=== PATIENT | female | born 1970 | race Caucasian/White ===

== ENCOUNTER → 2018-01-23 16:08 | Outpatient (CLI) | payer OTHER, SELFPAY ==
[2018-01-23 16:50] LABS: Creatinine Urine Random 49.9 mg/dL
[2018-01-23 16:55] LABS: Microalbumin Urine Random 0.8 mg/dL (0-1.6)
== END ==
PROVIDERS: PCP Family Medicine; Visit Provider Family Medicine
DX: E11.65 Type 2 diabetes mellitus with hyperglycemia (principal)
CPT/HCPCS: 82043; 82570

== ENCOUNTER → 2018-07-09 14:00 | Outpatient (CLI) | payer OTHER, SELFPAY | PROVIDERS: Family Provider Family Medicine; PCP Family Medicine | DX: Z23 Encounter for immunization (principal) | CPT/HCPCS: 90471; 90686 ==

== ENCOUNTER → 2018-11-16 13:05 | Outpatient (CLI) | payer OTHER, SELFPAY ==
[2018-11-16 13:32] LABS: Influenza A and B by PCR Rapid Negative (Negative)
== END ==
PROVIDERS: Family Provider Family Medicine; PCP Family Medicine; Visit Provider Registered Nurse
DX: R50.9 Fever, unspecified (principal)
CPT/HCPCS: 87400

== ENCOUNTER → 2019-02-01 07:04 | Outpatient (CLI) | payer OTHER, SELFPAY ==
[2019-02-01 08:02] LABS: Add Manual Diff / Slide Review NO; Basophils Absolute Auto 100 /uL (0-100); Basophils Percent Auto 0.9 % (0-2); Eosinophils Absolute Auto 600 /uL (0-450); Eosinophils Percent Auto 6.7 % (2-4); Hematocrit 43.8 % (36-46); Lymphocytes Absolute Auto 1800 /uL (1100-4500); Lymphocytes Percent Auto 20.7 % (25-40); Mean Corpuscular HGB Conc 34.3 % (30-36); Mean Corpuscular Hemoglobin 28.8 PG (26-34); Mean Corpuscular Volume 83.9 fL (80-100); Monocytes Absolute Auto 400 /uL (0-900); Neutrophils Absolute Auto 5800 /uL (1500-7000); Neutrophils Percent Auto 66.7 % (50-75); Platelet Count 271 X10^3/uL (150-400); Red Blood Cell Count 5.22 X10^6/uL (4.0-5.2); Red Cell Distribution Width 13.2 % (11.6-14.8); White Blood Cell Count 8.7 X10^3/uL (4.5-11.0)
[2019-02-01 08:13] LABS: Hemoglobin A1C% w Est Avg Glu 12.2 % (4.0-6.0)
[2019-02-01 08:37] LABS: Alanine Aminotransferase 107 IU/L (9-52); Albumin 4.1 g/dL (3.5-5.0); Albumin Globulin Ratio 1.1 (1.0-2.8); Alkaline Phosphatase 117 U/L (38-126); Aspartate Aminotransferase 82 IU/L (14-36); Bilirubin Total 0.7 mg/dL (0.2-1.3); Blood Urea Nitrogen 12 mg/dL (7-17); Calcium 9.3 mg/dL (8.4-10.2); Carbon Dioxide 27 mmol/L (22-32); Chloride 97 mmol/L (98-107); Cholesterol 222 mg/dL (140-199); Estimated Glomerular Filt Rate > 60.0 mL/min (>60); Globulin 3.9 g/dL (1.7-4.1); Glucose 361 mg/dL (70-100); HDL Cholesterol 44 mg/dL (40-60); HEMOLYSIS 27 (0-50); LDL Cholesterol Calculated 110 mg/dL (<100); Potassium 3.9 mmol/L (3.4-5.1); Sodium 134 mmol/L (137-145); Triglycerides 342 mg/dL (35-150)
[2019-02-01 08:59] LABS: TSH w/ Reflex to FT4 0.99 uIU/mL (0.47-4.68)
== END ==
PROVIDERS: PCP Nurse Practitioner; Visit Provider Nurse Practitioner
DX: E11.65 Type 2 diabetes mellitus with hyperglycemia (principal); E66.9 Obesity, unspecified; I10 Essential (primary) hypertension; Z00.00 Encounter for general adult medical examination without abnormal findings
CPT/HCPCS: 36415; 80053; 80061; 83036; 84443; 85025

== ENCOUNTER → 2019-06-26 17:24 | Outpatient (CLI) | payer OTHER, SELFPAY | PROVIDERS: PCP Nurse Practitioner | DX: Z23 Encounter for immunization (principal) | CPT/HCPCS: 90471; 90686 ==

== ENCOUNTER → 2019-07-18 09:04 | Outpatient (CLI) | payer OTHER, SELFPAY ==
--- NOTE | 2019-07-18 09:06 | DI.RAD.S_ITS ---
PROCEDURE: XR CHEST 2V INDICATIONS: Chest Pain TECHNIQUE: 2 views of the chest were acquired. COMPARISON: [facility], CHEST 2 VIEW, 09/28/2017, 9:09. [facility], CHEST 2 VIEW, 11/22/2009, 7:12. FINDINGS: Surgical changes and devices: None. Lungs and pleura: Minimal streaky opacity at the left lung base which has the appearance of atelectasis. Lungs are otherwise clear. No pleural effusions or pneumothorax. Mediastinum: Mediastinal contours are normal. Heart size is normal. Bones and chest wall: No suspicious bony abnormalities. Soft tissues appear unremarkable. IMPRESSION: No acute cardiopulmonary abnormality. Dictated by: Zen Vance M.D. on 07/18/2019 at 9:21 Approved by: Zen Vance M.D. on 07/18/2019 at 9:25
[2019-07-18 11:15] LABS: Hematocrit 44.5 % (36-46); Hemoglobin 15.3 g/dL (12.0-16.0)
[2019-07-18 12:03] LABS: Alanine Aminotransferase 93 IU/L (<35); Albumin 4.5 g/dL (3.5-5.0); Albumin Globulin Ratio 1.2 (1.0-2.8); Alkaline Phosphatase 136 U/L (38-126); Aspartate Aminotransferase 82 IU/L (14-36); Bilirubin Total 0.8 mg/dL (0.2-1.3); Blood Urea Nitrogen 10 mg/dL (7-17); Calcium 9.5 mg/dL (8.4-10.2); Carbon Dioxide 28 mmol/L (22-32); Chloride 94 mmol/L (98-107); Creatine Kinase 45 U/L (30-135); Estimated Glomerular Filt Rate > 60.0 mL/min (>60); Globulin 3.9 g/dL (1.7-4.1); Glucose 442 mg/dL (70-100); HEMOLYSIS 19 (0-50); Potassium 3.9 mmol/L (3.4-5.1); Sodium 134 mmol/L (137-145); Total Protein 8.4 g/dL (6.3-8.2)
[2019-07-18 12:13] LABS: Troponin I < 0.012 ng/mL (0.01-0.034)
[2019-07-18 12:23] LABS: Free T3, Triiodothyronine Free 3.63 pg/mL (2.77-5.27); Free T4, Direct Thyroxine 1.44 ng/dL (0.78-2.19)
[2019-07-18 12:37] LABS: Thyroid Stimulating Hormone 1.38 uIU/mL (0.47-4.68)
== END ==
PROVIDERS: PCP Nurse Practitioner; Visit Provider Nurse Practitioner
DX: R07.9 Chest pain, unspecified (principal); R06.00 Dyspnea, unspecified
CPT/HCPCS: 36415; 71046; 80053; 82550; 84439; 84443; 84481; 84484; 85014; 85018

== ENCOUNTER → 2020-04-10 07:07 | Outpatient (CLI) | payer OTHER, SELFPAY ==
[2020-04-10 07:16] LABS: RBC Urine None Seen (0-5/HPF)
[2020-04-10 08:12] LABS: Appearance Urine UA CLEAR; Bilirubin Urine UA NEGATIVE (NEGATIVE); Color Urine UA YELLOW; Glucose Urine UA 3+ g/dL (Negative); Ketones Urine UA 1+ (NEGATIVE); Leukocyte Esterase Urine UA NEGATIVE (NEGATIVE); Nitrite Urine UA NEGATIVE (Negative); Occult Blood Urine UA NEGATIVE (Negative); Protein Urine UA NEGATIVE (Negative); Urobilinogen Urine UA 0.2 E.U./dL (0.2)
[2020-04-10 08:26] LABS: Hemoglobin A1C% w Est Avg Glu 13.4 % (4.0-6.0)
[2020-04-10 08:27] LABS: Add Manual Diff / Slide Review NO; Basophils Absolute Auto 100 /uL (0-100); Basophils Percent Auto 1.1 % (0-2); Eosinophils Absolute Auto 400 /uL (0-450); Eosinophils Percent Auto 5.4 % (2-4); Hematocrit 42.3 % (36-46); Hemoglobin 14.2 g/dL (12.0-16.0); Lymphocytes Absolute Auto 1800 /uL (1100-4500); Mean Corpuscular HGB Conc 33.7 % (30-36); Mean Corpuscular Hemoglobin 28.5 PG (26-34); Mean Corpuscular Volume 84.4 fL (80-100); Monocytes Absolute Auto 300 /uL (0-900); Monocytes Percent Auto 4.7 % (3-14); Neutrophils Absolute Auto 4700 /uL (1500-7000); Neutrophils Percent Auto 63.8 % (50-75); Platelet Count 239 X10^3/uL (150-400); Red Blood Cell Count 5.01 X10^6/uL (4.0-5.2); White Blood Cell Count 7.4 X10^3/uL (4.5-11.0)
[2020-04-10 08:31] LABS: Bacteria Urine Occasional (0-1); Culture Indicated Urine Cult Not Indicated; Squamous Epithelial Cell Urine 1-5 /HPF (0-5/HPF); WBC Urine 0-1/HPF (0-5/HPF)
[2020-04-10 08:35] LABS: Alanine Aminotransferase 77 IU/L (<35); Albumin 3.9 g/dL (3.5-5.0); Albumin Globulin Ratio 1.1 (1.0-2.8); Alkaline Phosphatase 116 U/L (38-126); Aspartate Aminotransferase 58 IU/L (14-36); BUN Creatinine Ratio 39.5 (6-22); Bilirubin Total 0.5 mg/dL (0.2-1.3); Blood Urea Nitrogen 17 mg/dL (7-17); Calcium 9.5 mg/dL (8.4-10.2); Carbon Dioxide 24 mmol/L (22-32); Chloride 99 mmol/L (98-107); Cholesterol 203 mg/dL (140-199); Creatinine Urine Random 73.3 mg/dL; Estimated Glomerular Filt Rate > 60.0 mL/min (>60); Globulin 3.4 g/dL (1.7-4.1); Glucose 407 mg/dL (70-100); HDL Cholesterol 45 mg/dL (40-60); HEMOLYSIS < 15 (0-50); LDL Cholesterol Calculated 82 mg/dL (<100); Potassium 4.5 mmol/L (3.4-5.1); Sodium 133 mmol/L (137-145); Total Protein 7.3 g/dL (6.3-8.2); Triglycerides 380 mg/dL (35-150)
[2020-04-10 08:38] LABS: Microalbumi Creatinin Ratio Ur 20.4 ug/mg CR (<30); Microalbumin Urine Random 1.5 mg/dL (0-1.6)
[2020-04-10 08:48] LABS: Free T3, Triiodothyronine Free 3.38 pg/mL (2.77-5.27); Free T4, Direct Thyroxine 1.63 ng/dL (0.78-2.19)
[2020-04-10 09:01] LABS: Thyroid Stimulating Hormone 0.901 uIU/mL (0.47-4.68)
== END ==
PROVIDERS: PCP Nurse Practitioner; Referring Provider Nurse Practitioner; Visit Provider Nurse Practitioner
DX: Z00.00 Encounter for general adult medical examination without abnormal findings (principal); E11.65 Type 2 diabetes mellitus with hyperglycemia; E66.9 Obesity, unspecified; E78.5 Hyperlipidemia, unspecified; F32.0 Major depressive disorder, single episode, mild; F41.9 Anxiety disorder, unspecified; I10 Essential (primary) hypertension; Z79.899 Other long term (current) drug therapy
CPT/HCPCS: 36415; 80053; 80061; 81001; 82043; 82570; 83036; 84439; 84443; 84481; 85025

== ENCOUNTER → 2020-06-09 00:52 | Outpatient (CLI) | payer OTHER, SELFPAY | PROVIDERS: PCP Nurse Practitioner; Referring Provider Internal Medicine; Visit Provider Internal Medicine | DX: Z23 Encounter for immunization (principal) | CPT/HCPCS: 90471; 90686 ==

== ENCOUNTER → 2020-07-29 13:01 | Outpatient (CLI) | payer OTHER, SELFPAY ==
[2020-07-29 13:46] LABS: COVID19 -Nasal RAPID Negative (Negative)
== END ==
PROVIDERS: PCP Nurse Practitioner; Visit Provider Nurse Practitioner
DX: R06.02 Shortness of breath (principal); R50.9 Fever, unspecified
CPT/HCPCS: 87635

== ENCOUNTER → 2020-09-11 08:07 | Outpatient (CLI) | payer OTHER, SELFPAY ==
[2020-09-11] MEDS: COVID-19 VACC(MODERNA-1)/PF 100 MCG/0.5 ML VIAL IM (08:18)
[2020-09-11] MEDS: diphenhydrAMINE 25 MG TABLET 50 MG PO (08:25)
== END ==
PROVIDERS: PCP Nurse Practitioner; Visit Provider Internal Medicine
DX: Z23 Encounter for immunization (principal)
CPT/HCPCS: 0011A; 91301; 93005

== ENCOUNTER 2020-09-11 08:34 | Emergency (ER) | payer OTHER, SELFPAY ==
[2020-09-11] VITALS (13 sets, daily range): BP systolic 124–217; BP diastolic 61–105; PULSE 77–94; RESP 13–27; TEMP 37.1; O2SAT 96–99; BMI 30.9
[2020-09-11] MEDS: FAMOTIDINE 20 MG/50 ML PIGGYBACK 200 MG IV (08:45)
[2020-09-11] MEDS: methylPREDNISolone 125 MG/2 ML VIAL IV (08:46)
[2020-09-11] MEDS: EPINEPHrine 1 MG/ML 0.3 MG IM (09:14)
--- NOTE | 2020-09-11 12:40 | ED.ALLEREA ---
HPI - Allergic Reaction General Chief complaint: Allergic Reaction Stated complaint: reaction/tighness in chest to vaccine Time Seen by Provider: 09/11/20 08:39 Source: patient Mode of arrival: Wheelchair Limitations: no limitations History of Present Illness HPI narrative: 50-year-old woman with a history of allergic reaction to bee stings diabetes hypertension hyperlipidemia who had her 1st Covid19 vaccination,Moderma, today. Immediately after the injection she began developing hives and itching. She was given 50 mg of oral Benadryl. Hives continued to progress, she began to feel some tightness in the back of her throat and tightness around her chest. She presents to the emergency room and is able to speak in full sentences. Related Data Home Medications Medication Instructions Recorded Confirmed citalopram 20 mg tablet 40 mg PO DAILY tab 12/27/19 05/13/20 cetirizine 10 mg capsule 10 mg PO DAILY 04/09/20 05/13/20 aspirin 81 mg tablet,delayed 81 mg PO DAILY 05/13/20 05/13/20 release Previous Rx's Medication Instructions Recorded lorazepam 1 mg tablet 1 mg PO Q6HP PRN #20 tab 06/04/18 epinephrine 0.3 mg/0.3 mL 0.3 mg IM SEE INSTRUCTIONS #1 pkg 12/25/18 injection, auto-injector promethazine 25 mg tablet 12.5 mg PO Q6H PRN #30 tab 02/21/19 triamcinolone acetonide 0.5 % 1 applictn TOPICAL BID #30 gram 04/23/19 topical ointment Ventolin HFA 90 mcg/actuation 2 puff INHALATION Q6H PRN #18 gram 09/19/19 aerosol inhaler NS omeprazole 40 mg capsule,delayed 40 mg PO BID #180 cap 09/19/19 release simvastatin 5 mg tablet 5 mg PO BEDTIME #90 tab 09/19/19 trazodone 50 mg tablet 50 mg PO BEDTIME PRN #180 tab 09/19/19 hydroxyzine pamoate 25 mg capsule 25 mg PO TID #60 cap 12/27/19 propranolol 20 mg tablet 20 mg PO BID #180 tab 04/09/20 flash glucose sensor #2 each 04/15/20 glipizide 5 mg tablet, extended 5 mg PO DAILY #30 tab 05/13/20 release 24 hr lisinopril 5 mg tablet 5 mg PO DAILY #30 tab 05/13/20 metformin 1,000 mg tablet 1,000 mg PO BID #180 tab 05/13/20 Pen needles for insulin syringe #100 each NS 05/22/20 insulin lispro 100 unit/mL See Rx Instructions SUBCUT TID #15 05/22/20 subcutaneous pen ml Blood glucose meter #1 ea 05/28/20 Test strips #400 each 05/28/20 lancets #400 each 05/28/20 hydrochlorothiazide 25 mg tablet 25 mg PO QDAY #90 tab 06/01/20 finasteride 5 mg tablet 5 mg PO DAILY #90 tab 06/25/20 gabapentin 600 mg tablet 600 mg PO BEDTIME #90 tab 08/31/20 prednisone 20 mg PO DAILY #5 tab 09/11/20 Allergies Allergy/AdvReac Type Severity Reaction Status Date / Time butalbital [BUTALBITAL] Allergy Mild FACIAL Verified 05/13/20 08:10 SWELLING oxycodone [OXYCODONE] Allergy Mild nausea, Verified 05/13/20 08:10 vomiting and chest tightness primidone [PRIMIDONE] Allergy Mild DIZZYNESS,A Verified 05/13/20 08:10 GITATION,CO NFUSION Sulfa (Sulfonamide Allergy Mild RASH Verified 05/13/20 08:10 Antibiotics) [SULFA (SULFONAMIDE ANTIBIOTICS)] Barbiturates [BARBITURATES] AdvReac Mild DIZZYNESS, Verified 05/13/20 08:10 AGITTION, CONFUSION Review of Systems Review of Systems Narrative: Pertinent positive and negative findings as per HPI Remainder of review of systems is otherwise unremarkable for Constitutional: Fevers, chills, weakness ENT: No sore throat, neck pain, ear pain CV: Chest pain, palpitations, Respiratory: Cough, wheeze, dyspnea GI: Nausea, vomiting, diarrhea, : Dysuria, hematuria, flank pain MS: Muscle weakness, numbness, joint swelling or warmth Patient History Medical History (Updated 09/11/20 @ 12:52 by Chika Euceda MD) Anxiety Asthma Atypical chest pain Chicken pox Chronic back pain Class 1 obesity (12/25/17) Depression Essential hypertension (12/20/17) GERD (gastroesophageal reflux disease) Headache History of tremor Hyperlipidemia Hypertension Hypoglycemic reaction to insulin in type 2 diabetes mellitus Infertility Irregular menstrual cycle Menorrhagia Migraine Palpitations PCOS (polycystic ovarian syndrome) Peripheral neuropathy due to metabolic disorder Piriformis syndrome of left side Seasonal allergies Shoulder pain Sleep apnea Tremor (12/20/17) Uncontrolled type 2 diabetes mellitus (2008) Vertigo Surgical History Anesthesia H/O elbow surgery (2010) H/O unilateral salpingectomy (2001) Status post surgery (05/18/12) Family History Brother Age: 50 Hyperlipidemia Diabetes mellitus Hypertension Father CAD (coronary artery disease) Dementia Anxiety and depression Hx of CABG History of heart disease Hypertension Hyperlipidemia Mental health problem Mother DM type 2 (diabetes mellitus, type 2) Hyperlipidemia Anxiety Hypertension Cancer Sister Age: 52 Mental health problem Social History marital status: household members: family lives independently: Yes housing: house pets and animals: Yes education level: college occupational status: employed Smoking Status: Never smoker alcohol intake: current substance use type: does not use Smoking Status: Never smoker alcohol intake frequency: 0-2 drinks per day Substance Use Type: does not use Exam Narrative Exam Narrative: General: Healthy appearing, in mild distress. Able to give a complete and coherent history. Well-nourished well-developed HEENT: Moist mucous membranes, normal sclera with reactive pupils, he erythema and hives over the neck extending up to the chin down to the chest and upper arms. No obvious pharyngeal edema or tongue edema, mild lip edema Neck: supple Respiratory: Lungs are clear to auscultation, no wheezing no rales no rhonchi. Full and symmetrical air movement Cardiac: Regular rate and rhythm no murmurs no bruits Abdomen: Soft nontender good bowel tones, no flank pain Skin: Warm and dry, no rashes Neurologic: Grossly neurologically intact with no obvious asymmetries or abnormalities Extremities: No trauma, well perfused Psych: Cooperative, appropriate insight and affect Initial Vital Signs Initial Vital Signs: Vital Signs Pulse Rate 94 H 09/11/20 08:43 Course Orders Ordered: Discontinued Medications Epinephrine HCl (Epinephrine 1 Mg/Ml) 0.3 mg IM NOW ONE Stop: 09/11/20 09:16 Last Admin: 09/11/20 09:14 Dose: 0.3 mg Documented by: MARY Famotidine (Pepcid) 20 mg in 50 mls @ 200 mls/hr IV NOW ONE Stop: 09/11/20 08:53 Last Infusion: 09/11/20 09:15 Dose: 0 mls/hr Documented by: Admin: 09/11/20 08:45 Dose: 200 mls/hr Documented by: MANJU Methylprednisolone (Methylprednisolone 125 Mg/2 Ml Vial) 125 mg IV NOW ONE Stop: 09/11/20 08:40 Last Admin: 09/11/20 08:46 Dose: 125 mg Documented by: MANJU Vital Signs Vital signs: Vital Signs - 8 hr 09/11/20 08:43 09/11/20 08:44 09/11/20 08:45 Temperature 98.8 F Pulse Rate 94 H 89 88 Respiratory Rate 16 18 Blood Pressure 168/86 H 168/86 H Pulse Oximetry 98 98 09/11/20 09:00 09/11/20 09:30 09/11/20 10:00 Temperature Pulse Rate 86 82 77 Respiratory Rate 27 H 18 22 Blood Pressure 151/73 H 140/85 217/105 H Pulse Oximetry 97 97 99 09/11/20 10:21 09/11/20 10:30 09/11/20 10:45 Temperature Pulse Rate 81 83 86 Respiratory Rate 13 14 17 Blood Pressure 135/75 135/75 Pulse Oximetry 99 98 98 09/11/20 11:00 09/11/20 11:30 09/11/20 12:00 Temperature Pulse Rate 86 82 86 Respiratory Rate 19 23 26 H Blood Pressure 129/73 125/61 Pulse Oximetry 97 96 96 MDM - Allergic Reaction Differential Diagnosis Differential diagnosis: Likely anaphylaxis MDM Narrative Medical decision making narrative: 50-year-old woman with a history of allergy to bee stings with acute anaphylactic reaction to 1st COVID-19 vaccine. She was given initially Solu-Medrol, IV Pepcid and IV Benadryl with progression of symptoms over the 1st 20 minutes following those medications. Subcu epinephrine was given and the symptoms began to improve significantly. She was continued to be observed in the emergency department for 4 additional hours and has continued to improve and currently has no concerning symptoms. She will be safe for home discharge. Will recommend no further COVID vaccinations Discharge Plan Departure Patient Disposition: Home Clinical Impression: Anaphylaxis Qualifiers: Encounter type: initial encounter Qualified Code(s): T78.2XXA - Anaphylactic shock, unspecified, initial encounter Instructions: DI for Anaphylaxis Activity Restrictions/Additional Instructions: Thank you for coming in today You initially received Benadryl, Solu-Medrol, Pepcid and as symptoms continued to progress your given subcu epinephrine. Has you are still slightly flushed and somewhat itchy, I am going to suggest 5 additional days of prednisone 20 mg a day just to avoid any recurrent issues for you. You certainly can use Benadryl to help with sleep with the steroids are interfering with your sleep. 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 Please begin the 1st dose tomorrow. Please have a very low threshold for returning to the Emergency Room if you have any increased airway, throat, tongue or lip symptoms. Prescriptions: New prednisone 20 mg tablet 20 mg PO DAILY Qty: 5 RF: 0 No Action lorazepam 1 mg tablet 1 mg PO Q6HP PRN (Reason: anxiety) Qty: 20 RF: 1 epinephrine [EpiPen 2-Justin] 0.3 mg/0.3 mL auto-injector 0.3 mg IM SEE INSTRUCTIONS Qty: 1 RF: 2 promethazine 25 mg tablet 12.5 mg PO Q6H PRN (Reason: nausea/vomiting) Qty: 30 RF: 2 triamcinolone acetonide 0.5 % ointment 1 applictn Topical BID Qty: 30 RF: 4 citalopram 20 mg tablet 40 mg PO DAILY RF: 0 hydroxyzine pamoate 25 mg capsule 25 mg PO TID Qty: 60 RF: 0 (DME) FreeStyle Raquel 14 Day Sensor Kit See Rx Instructions .ROUTE .MEDSUPPLY Qty: 2 RF: 11 (DME) Blood glucose meter Qty: 1 RF: 0 (DME) lancets Qty: 400 RF: 3 (DME) Test strips Qty: 400 RF: 3 hydrochlorothiazide 25 mg tablet 25 mg PO QDAY Qty: 90 RF: 3 finasteride 5 mg tablet 5 mg PO DAILY Qty: 90 RF: 3 gabapentin 600 mg tablet 600 mg PO BEDTIME Qty: 90 RF: 2 omeprazole 40 mg capsule,delayed release(DR/EC) 40 mg PO BID Qty: 180 RF: 3 simvastatin 5 mg tablet 5 mg PO BEDTIME Qty: 90 RF: 3 trazodone 50 mg tablet 50 mg PO BEDTIME PRN (Reason: insomnia) Qty: 180 RF: 3 albuterol sulfate [Ventolin HFA] 90 mcg/actuation HFA aerosol inhaler 2 puff INHALATION Q6H PRN (Reason: shortness of breath or wheezing) Qty: 18 RF: 5 glipizide 5 mg tablet extended release 24hr 5 mg PO DAILY Qty: 30 RF: 0 Hold Instructions: hypoglycemic symptoms metformin 1,000 mg tablet 1,000 mg PO BID Qty: 180 RF: 3 aspirin [Adult Low Dose Aspirin] 81 mg tablet,delayed release (DR/EC) 81 mg PO DAILY RF: 0 lisinopril 5 mg tablet 5 mg PO DAILY Qty: 30 RF: 0 propranolol 20 mg tablet 20 mg PO BID Qty: 180 RF: 3 Zyrtec 10 mg capsule 10 mg PO DAILY RF: 0 insulin lispro 100 unit/mL insulin pen See Rx Instructions SUBCUT TID Qty: 15 RF: 1 (DME) Pen needles for insulin syringe Qty: 100 RF: 3 Referrals: Tamanna Gordon ARNP [Primary Care Provider] -
== END 2020-09-11 12:58 | disposition home or self-care (01) ==
PROVIDERS: Emergency Provider Emergency Medicine; PCP Nurse Practitioner
DX: T78.2XXA Anaphylactic shock, unspecified, initial encounter (principal); T50.Z95A Adverse effect of other vaccines and biological substances, initial encounter; L50.0 Allergic urticaria; L29.9 Pruritus, unspecified; R07.9 Chest pain, unspecified
CPT/HCPCS: 0011A; 93005; 96365; 96372; 96375; 99283; 99284; J0171; J2930

== ENCOUNTER → 2020-12-31 07:18 | Outpatient (CLI) | payer OTHER, SELFPAY ==
[2020-12-31 08:01] LABS: Hemoglobin A1C% w Est Avg Glu 13.3 % (4.0-6.0)
[2020-12-31 08:04] LABS: Add Manual Diff / Slide Review NO; Basophils Absolute Auto 100 /uL (0-100); Eosinophils Absolute Auto 300 /uL (0-450); Eosinophils Percent Auto 4.8 % (2-4); Hematocrit 42.2 % (36-46); Hemoglobin 14.2 g/dL (12.0-16.0); Lymphocytes Absolute Auto 1700 /uL (1100-4500); Lymphocytes Percent Auto 23.4 % (25-40); Mean Corpuscular HGB Conc 33.8 % (30-36); Mean Corpuscular Hemoglobin 28.3 PG (26-34); Mean Corpuscular Volume 83.9 fL (80-100); Monocytes Absolute Auto 400 /uL (0-900); Monocytes Percent Auto 6.2 % (3-14); Neutrophils Absolute Auto 4600 /uL (1500-7000); Neutrophils Percent Auto 64.6 % (50-75); Platelet Count 266 X10^3/uL (150-400); Red Blood Cell Count 5.03 X10^6/uL (4.0-5.2); White Blood Cell Count 7.1 X10^3/uL (4.5-11.0)
[2020-12-31 08:14] LABS: Alanine Aminotransferase 55 IU/L (<35); Albumin Globulin Ratio 1.1 (1.0-2.8); Alkaline Phosphatase 124 U/L (38-126); Aspartate Aminotransferase 49 IU/L (14-36); BUN Creatinine Ratio 27.1 (6-22); Bilirubin Total 0.3 mg/dL (0.2-1.3); Blood Urea Nitrogen 13 mg/dL (7-17); Calcium 9.6 mg/dL (8.4-10.2); Carbon Dioxide 27 mmol/L (22-32); Chloride 93 mmol/L (98-107); Cholesterol 232 mg/dL (140-199); Estimated Glomerular Filt Rate > 60.0 mL/min (>60); Globulin 3.6 g/dL (1.7-4.1); HDL Cholesterol 51 mg/dL (40-60); HEMOLYSIS < 15 (0-50); Potassium 3.8 mmol/L (3.4-5.1); Sodium 131 mmol/L (137-145); Total Protein 7.6 g/dL (6.3-8.2); Triglycerides 472 mg/dL (35-150)
[2020-12-31 08:20] LABS: Glucose 518 mg/dL (70-100)
[2020-12-31 08:27] LABS: Free T3, Triiodothyronine Free 3.61 pg/mL (2.77-5.27); Free T4, Direct Thyroxine 1.18 ng/dL (0.78-2.19)
== END ==
PROVIDERS: PCP Nurse Practitioner; Referring Provider Nurse Practitioner; Visit Provider Nurse Practitioner
DX: Z00.00 Encounter for general adult medical examination without abnormal findings (principal); E11.649 Type 2 diabetes mellitus with hypoglycemia without coma; E11.65 Type 2 diabetes mellitus with hyperglycemia; E78.5 Hyperlipidemia, unspecified; F32.0 Major depressive disorder, single episode, mild; I10 Essential (primary) hypertension; Z79.899 Other long term (current) drug therapy
CPT/HCPCS: 36415; 80053; 80061; 83036; 84439; 84443; 84481; 85025

== ENCOUNTER → 2021-01-27 07:44 | Outpatient (CLI) | payer OTHER, SELFPAY ==
[2021-01-27] MEDS: COVID-19 VACC, Ad26(JANSSEN)/PF 0.5 ML IM (07:49)
== END ==
PROVIDERS: PCP Nurse Practitioner; Visit Provider Internal Medicine
DX: Z23 Encounter for immunization (principal)
CPT/HCPCS: 0031A; 91303

== ENCOUNTER 2021-02-21 13:48 | Observation (INO) | payer OTHER, SELFPAY ==
[2021-02-21] VITALS (9 sets, daily range): BP systolic 131–170; BP diastolic 76–95; PULSE 71–83; RESP 13–24; TEMP 36.1–36.7; O2SAT 97–100; BMI 30.4; BMI 31.1
--- NOTE | 2021-02-21 13:54 | DI.RAD.S_ITS ---
PROCEDURE: XR CHEST 1V INDICATIONS: chest pain TECHNIQUE: One view of the chest was acquired. COMPARISON: [facility], [place], XR CHEST 2V, 07/18/2019, 9:02. FINDINGS: Surgical changes and devices: None. Lungs and pleura: Lungs are clear. No pleural effusions or pneumothorax. Mediastinum: Mediastinal contours appear normal. Heart size is normal. Bones and chest wall: No suspicious bony lesions. Overlying soft tissues appear unremarkable. IMPRESSION: No evidence acute pulmonary process. Dictated by: Pee Penny M.D. on 02/21/2021 at 13:20 Approved by: Pee Penny M.D. on 02/21/2021 at 13:21
[2021-02-21 14:29] LABS: Add Manual Diff / Slide Review NO; Basophils Absolute Auto 100 /uL (0-100); Basophils Percent Auto 1.2 % (0-2); Eosinophils Absolute Auto 0 /uL (0-450); Eosinophils Percent Auto 0.3 % (2-4); Hematocrit 40.4 % (36-46); Lymphocytes Absolute Auto 2000 /uL (1100-4500); Lymphocytes Percent Auto 22.6 % (25-40); Mean Corpuscular HGB Conc 34.6 % (30-36); Mean Corpuscular Hemoglobin 28.1 PG (26-34); Mean Corpuscular Volume 81.3 fL (80-100); Monocytes Absolute Auto 300 /uL (0-900); Neutrophils Absolute Auto 6200 /uL (1500-7000); Neutrophils Percent Auto 71.9 % (50-75); Platelet Count 276 X10^3/uL (150-400); Red Blood Cell Count 4.97 X10^6/uL (4.0-5.2); Red Cell Distribution Width 13.2 % (11.6-14.8); White Blood Cell Count 8.7 X10^3/uL (4.5-11.0)
[2021-02-21 14:37] LABS: Alanine Aminotransferase 48 IU/L (<35); Albumin 4.3 g/dL (3.5-5.0); Alkaline Phosphatase 125 U/L (38-126); Aspartate Aminotransferase 56 IU/L (14-36); BUN Creatinine Ratio 30.8 (6-22); Bilirubin Total 0.8 mg/dL (0.2-1.3); Blood Urea Nitrogen 12 mg/dL (7-17); Calcium 9.8 mg/dL (8.4-10.2); Carbon Dioxide 24 mmol/L (22-32); Chloride 98 mmol/L (98-107); Creatine Kinase 113 U/L (30-135); Estimated Glomerular Filt Rate > 60.0 mL/min (>60); Globulin 4.4 g/dL (1.7-4.1); Glucose 346 mg/dL (70-100); HEMOLYSIS 23 (0-50); Lipase 67 U/L (23-300); Potassium 3.8 mmol/L (3.4-5.1); Sodium 133 mmol/L (137-145); Total Protein 8.7 g/dL (6.3-8.2)
[2021-02-21 14:49] LABS: Troponin I < 0.012 ng/mL (0.01-0.034)
[2021-02-21 14:52] LABS: CKMB % Relative Index 0.6 % (1.5-5.0); Creatine Kinase MB 0.67 ng/mL (<2.37)
[2021-02-21] MEDS: SODIUM CHLORIDE 0.9% 1,000 ML 1000 ML IV (16:55)
[2021-02-21 17:42] LABS: Troponin I < 0.012 ng/mL (0.01-0.034)
--- NOTE | 2021-02-21 18:02 | ED.CHESTPAIN ---
HPI - Chest Pain General Chief Complaint: Chest Pain Stated Complaint: CHEST PAIN/VOMITTING/ANXIETY ATTACK Time Seen by Provider: 02/21/21 16:17 Source: patient Mode of arrival: Family Vehicle Limitations: no limitations History of Present Illness HPI narrative: Patient is a 50-year-old female history of hypertension hyperlipidemia diabetes, a family history of father with bypass at age 39 presenting today with chest discomfort. She said actually started last night she did have some anxiety component associated with her chest discomfort. She said it is hard to discern what came 1st. However she has chest discomfort off and on throughout the day it happens both at rest and with exertion feels pressure across her chest nonradiating. No shortness of breath with exertion last for approximately 10-15 minutes and spontaneously resolved. His after being in the emergency department for 4 hours she overall is feeling better. She also states that last night she was vomiting thought to be due to the anxiety. She has no abdominal pain she is no longer nauseous or vomiting. MD complaint: chest pain Onset (ago): hour(s) Duration: intermittent Related Data Home Medications Medication Instructions Recorded Confirmed cetirizine 10 mg capsule 10 mg PO DAILY 04/09/20 02/21/21 aspirin 81 mg tablet,delayed 81 mg PO DAILY 05/13/20 02/21/21 release omega-3 fatty acids 1,000 mg 1,000 mg PO BID 01/01/21 02/21/21 capsule Previous Rx's Medication Instructions Recorded promethazine 25 mg tablet 12.5 mg PO Q6H PRN #30 tab 02/21/19 triamcinolone acetonide 0.5 % 1 applictn TOPICAL BID #30 gram 04/23/19 topical ointment hydroxyzine pamoate 25 mg capsule 25 mg PO TID #60 cap 12/27/19 propranolol 20 mg tablet 20 mg PO BID #180 tab 04/09/20 flash glucose sensor #2 each 04/15/20 Pen needles for insulin syringe #100 each NS 05/22/20 insulin lispro 100 unit/mL See Rx Instructions SUBCUT TID #15 05/22/20 subcutaneous pen ml Blood glucose meter #1 ea 05/28/20 Test strips #400 each 05/28/20 lancets #400 each 05/28/20 finasteride 5 mg tablet 5 mg PO DAILY #90 tab 06/25/20 gabapentin 600 mg tablet 600 mg PO BEDTIME #90 tab 08/31/20 Ventolin HFA 90 mcg/actuation 2 puff INHALATION Q6H PRN #18 gram 09/15/20 aerosol inhaler NS epinephrine 0.3 mg/0.3 mL 0.3 mg IM SEE INSTRUCTIONS #1 pkg 09/16/20 injection, auto-injector melatonin 10 mg capsule 10 mg PO BEDTIME PRN #1 cap 11/16/20 doxepin 10 mg capsule 10 mg PO BEDTIME #180 cap 01/01/21 hydrochlorothiazide 25 mg tablet 25 mg PO QDAY #90 tab 01/01/21 lisinopril 5 mg tablet 5 mg PO DAILY #90 tab 01/01/21 simvastatin 5 mg tablet 5 mg PO BEDTIME #90 tab 01/01/21 venlafaxine 150 mg 150 mg PO BEDTIME #90 cap 01/01/21 capsule,extended release 24 hr omeprazole 40 mg capsule,delayed See Rx Instructions .ROUTE 01/28/21 release .COMPLEX #180 cap glipizide 5 mg tablet, extended 5 mg PO BID #180 tab 02/02/21 release 24 hr lorazepam 1 mg tablet 1 mg PO Q6HP PRN #20 tab 02/02/21 Allergies Allergy/AdvReac Type Severity Reaction Status Date / Time butalbital [BUTALBITAL] Allergy Mild FACIAL Verified 02/21/21 13:54 SWELLING oxycodone [OXYCODONE] Allergy Mild nausea, Verified 02/21/21 13:54 vomiting and chest tightness primidone [PRIMIDONE] Allergy Mild DIZZYNESS,A Verified 02/21/21 13:54 GITATION,CO NFUSION Sulfa (Sulfonamide Allergy Mild RASH Verified 02/21/21 13:54 Antibiotics) [SULFA (SULFONAMIDE ANTIBIOTICS)] Barbiturates [BARBITURATES] AdvReac Mild DIZZYNESS, Verified 02/21/21 13:54 AGITTION, CONFUSION Review of Systems Review of Systems ROS Unobtainable: All systems reviewed & are unremarkable except as noted in HPI and below Constitutional Constitutional: Denies chills, Denies fever(s), Denies lethargy and Denies weakness Eyes Eyes: Denies change in vision, Denies eye discharge, Denies irritation and Denies loss of vision Cardiovascular Cardiovascular: Reports as per HPI, Denies dyspnea and Denies dyspnea on exertion Respiratory Respiratory: Denies cough, Denies dyspnea, Denies dyspnea on exertion and Denies wheezing Gastrointestinal Gastrointestinal: Denies abdominal pain, Reports nausea and Reports vomiting Musculoskeletal Musculoskeletal: Denies back pain and Denies arthralgias Integumentary/Breasts Skin/Breast: Denies pruritus, Denies erythema, Denies rash and Denies wounds Neurologic Neurologic: Denies loss of vision and Denies weakness Allergic/Immunologic Allergic/Immunologic: Denies wheezing Patient History Medical History Anxiety Asthma Atypical chest pain Chicken pox Chronic back pain Class 1 obesity (12/25/17) Depression Essential hypertension (12/20/17) GERD (gastroesophageal reflux disease) Headache History of tremor Hyperlipidemia Hypertension Hypoglycemic reaction to insulin in type 2 diabetes mellitus Infertility Insomnia Irregular menstrual cycle Menorrhagia Migraine Palpitations PCOS (polycystic ovarian syndrome) Peripheral neuropathy due to metabolic disorder Piriformis syndrome of left side Seasonal allergies Shoulder pain Sleep apnea Tremor (12/20/17) Uncontrolled type 2 diabetes mellitus (2008) Vertigo Surgical History (Updated 02/21/21 @ 18:45 by Ammy Martínez MD) Anesthesia H/O elbow surgery (2010) H/O unilateral salpingectomy (2001) History of bladder surgery Status post surgery (05/18/12) Family History Brother Age: 51 Hyperlipidemia Diabetes mellitus Hypertension Father CAD (coronary artery disease) Dementia Anxiety and depression Hx of CABG History of heart disease Hypertension Hyperlipidemia Mental health problem Mother DM type 2 (diabetes mellitus, type 2) Hyperlipidemia Anxiety Hypertension Cancer Sister Age: 53 Mental health problem Social History marital status: household members: family lives independently: Yes housing: house pets and animals: Yes education level: college occupational status: employed Smoking Status: Never smoker alcohol intake: current substance use type: does not use Smoking Status: Never smoker alcohol intake frequency: holidays/special occasions only Substance Use Type: does not use Exam Initial Vital Signs Initial Vital Signs: Vital Signs Temperature 98.0 F 02/21/21 13:54 Pulse Rate 83 02/21/21 13:54 Respiratory Rate 22 02/21/21 13:54 Blood Pressure 170/95 H 02/21/21 13:54 Pulse Oximetry 100 02/21/21 13:54 GENERAL: Well-appearing, well-nourished and in no acute distress. HEENT: Head atraumatic,EOMI, pupils reactive, face symmetric, moist mucous membranes CARDIOVASCULAR: Regular rate and rhythm without murmurs, rubs or gallops. RESPIRATORY: Breath sounds equal bilaterally, no wheezes rales or rhonchi. ABDOMEN: Soft, nontender. Normoactive bowel sounds all 4 quadrants. No guarding or rebound. : No CVA tenderness EXTREMITIES: Normal range of motion, no clubbing or edema. Neurovascularly intact NEUROLOGICAL: Alert and oriented x4.Normal gait and speech. SKIN: Warm, dry, no laceration, no petechiae, no rashes or lesions. Scores HEART Score Heart Score history: Moderately Suspicious Heart Score EKG: Normal Heart Score Age: 45-64 years old Heart Score risk factors: > 3 risk factors or hx of atherosclerotic disease Heart Score troponin: < or = to normal limit Heart Score Total: 4 Course Orders Ordered: ED Orders 02/21/21 18:30 Education, smoking cessation ONGOING 02/21/21 22:50 Troponin I Stat 02/22/21 05:00 Basic Metabolic Panel Routine Complete Blood Count AUTO DIFF Routine Troponin I Routine Acetaminophen (Acetaminophen 325 Mg Tablet) 650 mg PO Q6HR PRN PRN Reason: Fever/Mild Pain (1-3) Albuterol (Albuterol Hfa Mdi 60 Puff/8 Gm Inhaler) 2 puff INH Q6H PRN PRN Reason: shortness of breath or wheezing Aspirin (Aspirin Ec 81 Mg Tablet) 81 mg PO DAILY [facility] Last Admin: 02/21/21 19:28 Dose: 81 mg Documented by: BRANDIE Dextrose (Dextrose 50 % In Water 25 Gm/50 Ml Syringe) 25 gm IV PRN PRN PRN Reason: Hypoglycemia Doxepin HCl (Doxepin 10 Mg Capsule) 10 mg PO BEDTIME [facility] Last Admin: 02/21/21 21:29 Dose: 10 mg Documented by: BRANDIE Gabapentin (Gabapentin 600 Mg Tablet) 600 mg PO BEDTIME [facility] Last Admin: 02/21/21 21:29 Dose: 600 mg Documented by: BRANDIE Glipizide (Glipizide Xl 5 Mg Tab) 5 mg PO BID [facility] Last Admin: 02/21/21 21:30 Dose: Not Given Documented by: BRANDIE Hydrochlorothiazide (Hydrochlorothiazide 25 Mg Tablet) 25 mg PO DAILY [facility] Hydroxyzine Pamoate (Hydroxyzine Pamoate 25 Mg Capsule) 25 mg PO TID [facility] Last Admin: 02/21/21 21:30 Dose: 25 mg Documented by: BRANDIE Ibuprofen (Ibuprofen 600 Mg Tablet) 600 mg PO Q6HR PRN PRN Reason: Fever/Mild Pain (1-3) Insulin Human Lispro (Insulin Lispro 100 Unit/Ml 3ml Vial) 0 unit SUBCUT ACHS [facility]; Protocol Last Admin: 02/21/21 21:30 Dose: 3 unit Documented by: BRANDIE Cosigned by: LUIZ Lisinopril (Lisinopril 5 Mg Tablet) 5 mg PO DAILY [facility] Lorazepam (Lorazepam 1 Mg Tablet) 1 mg PO Q6H PRN PRN Reason: anxiety Last Admin: 02/21/21 21:34 Dose: 1 mg Documented by: BRANDIE Naloxone HCl (Naloxone 0.4 Mg/Ml Vial) 0.2 mg IV Q2MIN PRN PRN Reason: Opiate Reversal Nitroglycerin (Nitroglycerin 0.4 Mg Sl Tab) 0.4 mg SL [id number] PRN PRN Reason: Chest Pain Non-Formulary Medication (Melatonin) 10 mg PO BEDTIME PRN PRN Reason: sleep Non-Formulary Medication (Omeprazole) 0 mg .ROUTE .COMPLEX [facility] Non-Formulary Medication (Simvastatin) 5 mg PO BEDTIME [facility] Last Admin: 02/21/21 21:32 Dose: Not Given Documented by: BRANDIE Ondansetron HCl (Ondansetron 4 Mg Odt) 4 mg PO Q8HR PRN PRN Reason: Nausea And Vomiting Propranolol HCl (Propranolol 10 Mg Tablet) 20 mg PO BID [facility] Last Admin: 02/21/21 21:31 Dose: 20 mg Documented by: BRANDIE Sodium Chloride (Sodium Chloride 0.9% Flush) 10 ml IV PRN PRN PRN Reason: Flush Sodium Chloride (Sodium Chloride 0.9% Flush) 10 ml IV BID [facility] Venlafaxine HCl (Venlafaxine Er 75 Mg Cap) 150 mg PO BEDTIME [facility] Last Admin: 02/21/21 21:32 Dose: 150 mg Documented by: BRANDIE Discontinued Medications Sodium Chloride (Normal Saline 0.9%) 1,000 mls @ 1,000 mls/hr IV BOLUS ONE Stop: 02/21/21 17:50 Last Admin: 02/21/21 16:55 Dose: 1,000 mls/hr Documented by: SANDOVAL Vital Signs Vital signs: Vital Signs - 8 hr 02/21/21 13:54 02/21/21 15:35 02/21/21 16:59 Temperature 98.0 F Pulse Rate 83 80 78 Respiratory Rate 22 15 18 Blood Pressure 170/95 H 136/82 Pulse Oximetry 100 99 98 02/21/21 17:00 Temperature Pulse Rate 77 Respiratory Rate 19 Blood Pressure Pulse Oximetry 98 MDM - Chest Pain Lab Data Attestation: I reviewed the patient's lab results. Result diagrams: 02/21/21 14:20 02/21/21 14:20 Labs: Lab Results 02/21/21 02/21/21 02/21/21 Range/Units 14:20 14:20 16:43 WBC 8.7 (4.5-11.0) X10^3/uL RBC 4.97 (4.0-5.2) X10^6/uL Hgb 14.0 (12.0-16.0) g/dL Hct 40.4 (36-46) % MCV 81.3 (80-100) fL MCH 28.1 (26-34) PG MCHC 34.6 (30-36) % RDW 13.2 (11.6-14.8) % Plt Count 276 (150-400) X10^3/uL Neut % (Auto) 71.9 (50-75) % Lymph % (Auto) 22.6 L (25-40) % [place] % (Auto) 4.0 (3-14) % Eos % (Auto) 0.3 L (2-4) % Baso % (Auto) 1.2 (0-2) % Neut # (Auto) 6200 (6831-6984) /uL Lymph # (Auto) 2000 (9072-5471) /uL [place] # (Auto) 300 (0-900) /uL Eos # (Auto) 0 (0-450) /uL Baso # (Auto) 100 (0-100) /uL Sodium 133 L (137-145) mmol/L Potassium 3.8 (3.4-5.1) mmol/L Chloride 98 (98-107) mmol/L Carbon Dioxide 24 (22-32) mmol/L BUN 12 (7-17) mg/dL Creatinine 0.39 L (0.52-1.04) mg/dL Estimated GFR > 60.0 (>60) mL/min BUN/Creatinine Ratio 30.8 H (6-22) Glucose 346 H (70-100) mg/dL Calcium 9.8 (8.4-10.2) mg/dL Total Bilirubin 0.8 (0.2-1.3) mg/dL AST 56 H (14-36) IU/L ALT 48 H (<35) IU/L Alkaline Phosphatase 125 (38-126) U/L Total Creatine Kinase 113 (30-135) U/L CK-MB (CK-2) 0.67 (<2.37) ng/mL CK-MB (CK-2) Rel Index 0.6 L (1.5-5.0) % Troponin I < 0.012 < 0.012 (0.01-0.034) ng/mL Total Protein 8.7 H (6.3-8.2) g/dL Albumin 4.3 (3.5-5.0) g/dL Globulin 4.4 H (1.7-4.1) g/dL Albumin/Globulin Ratio 1.0 (1.0-2.8) Lipase 67 (23-300) U/L Imaging Data Chest x-ray: Radiologist's Impression: PROCEDURE: XR CHEST 1V INDICATIONS: chest pain TECHNIQUE: One view of the chest was acquired. COMPARISON: [facility], , XR CHEST 2V, 07/18/2019, 9:02. FINDINGS: Surgical changes and devices: None. Lungs and pleura: Lungs are clear. No pleural effusions or pneumothorax. Mediastinum: Mediastinal contours appear normal. Heart size is normal. Bones and chest wall: No suspicious bony lesions. Overlying soft tissues appear unremarkable. IMPRESSION: No evidence acute pulmonary process. Dictated by: Pee Penny M.D. on 02/21/2021 at 13:20 ECG Data Attestation: I personally reviewed and interpreted this ECG as follows: Interpretation: EKG 1. Normal sinus rhythm rate 84 p.r. interval 174 QRS is [address] changes or T-wave inversions Q-waves noted in lead 3 only EKG 2. Sinus rhythm rate 80 no changes MDM Narrative Medical decision making narrative: Patient has significant risk factors, she has 2- troponins and no EKG changes. At this time I recommend observation and stress test. Discharge Plan Departure Patient Disposition: Admitted as Observation Clinical Impression: Chest pain Admit Date/Time: 02/21/21 18:40 Admit Provider: Ammy Martínez
--- NOTE | 2021-02-21 18:36 | P.HP_ITS ---
History of Present Illness History of Present Illness Date Patient Seen: 02/21/21 Time Patient Seen: 18:36 Chief complaint: CHEST PAIN/VOMITTING/ANXIETY ATTACK Narrative: This is a 50-year-old female with a strong family history of SC, hypertension, hyperlipidemia, type 2 diabetes mellitus, chronic anxiety and panic attacks who began experiencing left-sided chest pain while watching TV at 7:00 p.m. last night. Her father had an SC with a coronary artery bypass graft at age 39. She has risk factors of hypertension, hyperlipidemia and type 2 diabetes mellitus. She says that the symptoms came on concurrent with her usual panic attack symptoms but were much worse than usual. She experienced significant vomiting that persisted until this morning. There has been no abdominal pain. Her Lipase is 67. She had shortness of breath and palpitations. The pain has been coming on both at rest and with exertion. She was able to get some rest last night and when she got up this morning and tried to take a shower the pain came back. It radiates into both shoulders and both arms with tingling in both hands. She does not usually get this type of symptom with her panic attacks. She has not been tried on nitroglycerin or aspirin so far. Her symptoms had nearly subsided when she got to the emergency department and then resolved on their own. Patient History Medical History Anxiety Asthma Atypical chest pain Chicken pox Chronic back pain Class 1 obesity (12/25/17) Depression Essential hypertension (12/20/17) GERD (gastroesophageal reflux disease) Headache History of tremor Hyperlipidemia Hypertension Hypoglycemic reaction to insulin in type 2 diabetes mellitus Infertility Insomnia Irregular menstrual cycle Menorrhagia Migraine Palpitations PCOS (polycystic ovarian syndrome) Peripheral neuropathy due to metabolic disorder Piriformis syndrome of left side Seasonal allergies Shoulder pain Sleep apnea Tremor (12/20/17) Uncontrolled type 2 diabetes mellitus (2008) Vertigo Surgical History (Updated 02/21/21 @ 18:45 by Ammy Martínez MD) Anesthesia H/O elbow surgery (2010) H/O unilateral salpingectomy (2001) History of bladder surgery Status post surgery (05/18/12) Family & Social History Family History Brother Age: 51 Hyperlipidemia Diabetes mellitus Hypertension Father CAD (coronary artery disease) Dementia Anxiety and depression Hx of CABG History of heart disease Hypertension Hyperlipidemia Mental health problem Mother DM type 2 (diabetes mellitus, type 2) Hyperlipidemia Anxiety Hypertension Cancer Sister Age: 53 Mental health problem Social History: household members family lives independently Yes Safety & Behavioral: Feels Safe in Current Yes Environment Been Physically Hurt or No Threatened By a Person Tobacco & Substance use: Smoking Status Never smoker alcohol intake current alcohol intake frequency holiday/special occasion Substance Use Type does not use Meds Home Medications and Allergies Home Medications Medication Instructions Recorded Confirmed Type promethazine 25 mg tablet 12.5 mg PO Q6H PRN #30 tab 02/21/19 02/21/21 Rx triamcinolone acetonide 0.5 % 1 applictn TOPICAL BID #30 gram 04/23/19 02/21/21 Rx topical ointment hydroxyzine pamoate 25 mg capsule 25 mg PO TID #60 cap 12/27/19 02/21/21 Rx cetirizine 10 mg capsule 10 mg PO DAILY 04/09/20 02/21/21 History propranolol 20 mg tablet 20 mg PO BID #180 tab 04/09/20 02/21/21 Rx flash glucose sensor #2 each 04/15/20 02/21/21 Rx aspirin 81 mg tablet,delayed 81 mg PO DAILY 05/13/20 02/21/21 History release Pen needles for insulin syringe #100 each NS 05/22/20 02/21/21 Rx insulin lispro 100 unit/mL See Rx Instructions SUBCUT TID #15 05/22/20 02/21/21 Rx subcutaneous pen ml Blood glucose meter #1 ea 05/28/20 02/21/21 Rx Test strips #400 each 05/28/20 02/21/21 Rx lancets #400 each 05/28/20 02/21/21 Rx finasteride 5 mg tablet 5 mg PO DAILY #90 tab 06/25/20 02/21/21 Rx gabapentin 600 mg tablet 600 mg PO BEDTIME #90 tab 08/31/20 02/21/21 Rx Ventolin HFA 90 mcg/actuation 2 puff INHALATION Q6H PRN #18 gram 09/15/20 02/21/21 Rx aerosol inhaler NS epinephrine 0.3 mg/0.3 mL 0.3 mg IM SEE INSTRUCTIONS #1 pkg 09/16/20 02/21/21 Rx injection, auto-injector melatonin 10 mg capsule 10 mg PO BEDTIME PRN #1 cap 11/16/20 02/21/21 Rx doxepin 10 mg capsule 10 mg PO BEDTIME #180 cap 01/01/21 02/21/21 Rx hydrochlorothiazide 25 mg tablet 25 mg PO QDAY #90 tab 01/01/21 02/21/21 Rx lisinopril 5 mg tablet 5 mg PO DAILY #90 tab 01/01/21 02/21/21 Rx omega-3 fatty acids 1,000 mg 1,000 mg PO BID 01/01/21 02/21/21 History capsule simvastatin 5 mg tablet 5 mg PO BEDTIME #90 tab 01/01/21 02/21/21 Rx venlafaxine 150 mg 150 mg PO BEDTIME #90 cap 01/01/21 02/21/21 Rx capsule,extended release 24 hr omeprazole 40 mg capsule,delayed See Rx Instructions .ROUTE 01/28/21 02/21/21 Rx release .COMPLEX #180 cap glipizide 5 mg tablet, extended 5 mg PO BID #180 tab 02/02/21 02/21/21 Rx release 24 hr lorazepam 1 mg tablet 1 mg PO Q6HP PRN #20 tab 02/02/21 02/21/21 Rx Allergies Allergy/AdvReac Type Severity Reaction Status Date / Time butalbital [BUTALBITAL] Allergy Mild FACIAL Verified 02/21/21 13:54 SWELLING oxycodone [OXYCODONE] Allergy Mild nausea, Verified 02/21/21 13:54 vomiting and chest tightness primidone [PRIMIDONE] Allergy Mild DIZZYNESS,A Verified 02/21/21 13:54 GITATION,CO NFUSION Sulfa (Sulfonamide Allergy Mild RASH Verified 02/21/21 13:54 Antibiotics) [SULFA (SULFONAMIDE ANTIBIOTICS)] Barbiturates [BARBITURATES] AdvReac Mild DIZZYNESS, Verified 02/21/21 13:54 AGITTION, CONFUSION Review of Systems Review of Systems Narrative: Positive for chest pain, shortness of breath, vomiting, anxiety, palpitations, hand tingling. Negative for coughing, seizures, rashes, bleeding, dysuria, abdominal pain, headaches, hematuria, trouble talking, trouble walking, new allergies ROS: Yes All systems reviewed with the patient and are negative except as otherwise documented Exam Vital Signs (past 8 hours): - 02/21/21 13:54 02/21/21 15:35 02/21/21 16:59 Temperature 98.0 F Pulse Rate 83 80 78 Respiratory Rate 22 15 18 Blood Pressure 170/95 H 136/82 Pulse Oximetry 100 99 98 02/21/21 17:00 02/21/21 17:30 02/21/21 18:00 Temperature Pulse Rate 77 72 72 Respiratory Rate 19 13 14 Blood Pressure Pulse Oximetry 98 99 100 02/21/21 18:30 Temperature Pulse Rate 76 Respiratory Rate 24 Blood Pressure Pulse Oximetry 100 Oxygen Delivery Method Room Air Narrative Exam Narrative: She is alert and oriented x3, in no apparent distress Pupils are equally round and reactive to light and accommodation Sclerae are pink and nonicteric Extraocular muscles are intact Throat looks normal No lymph nodes are felt head, neck, supraclavicular area JVD is less than 6 cm There is no thyromegaly No carotid bruits are heard Heart is regular rate and rhythm without murmur Lungs are clear to auscultation bilaterally Abdomen is soft, obese, nontender, no organomegaly Extremities have no ankle edema Skin has no rash or jaundice Neurological exam Cranial nerves 2-12 test intact There is no tremor Motor function is 5/5 throughout Deep tendon reflexes are symmetric No decreased sensation in her hands and fingers Objective Labs Result Diagrams: 02/21/21 14:20 02/21/21 14:20 Labs: Laboratory Results - last 24 hr 02/21/21 02/21/21 02/21/21 14:20 14:20 16:43 WBC 8.7 RBC 4.97 Hgb 14.0 Hct 40.4 MCV 81.3 MCH 28.1 MCHC 34.6 RDW 13.2 Plt Count 276 Neut % (Auto) 71.9 Lymph % (Auto) 22.6 L [place] % (Auto) 4.0 Eos % (Auto) 0.3 L Baso % (Auto) 1.2 Neut # (Auto) 6200 Lymph # (Auto) 2000 [place] # (Auto) 300 Eos # (Auto) 0 Baso # (Auto) 100 Sodium 133 L Potassium 3.8 Chloride 98 Carbon Dioxide 24 BUN 12 Creatinine 0.39 L Estimated GFR > 60.0 BUN/Creatinine Ratio 30.8 H Glucose 346 H Calcium 9.8 Total Bilirubin 0.8 AST 56 H ALT 48 H Alkaline Phosphatase 125 Total Creatine Kinase 113 CK-MB (CK-2) 0.67 CK-MB (CK-2) Rel Index 0.6 L Troponin I < 0.012 < 0.012 Total Protein 8.7 H Albumin 4.3 Globulin 4.4 H Albumin/Globulin Ratio 1.0 Lipase 67 Assessment & Plan Assessment & Plan narrative: This is a 50-year-old female with a strong family history of SC, hypertension, hyperlipidemia, type 2 diabetes mellitus, chronic anxiety and panic attacks who began experiencing left-sided chest pain while watching TV at 7:00 p.m. last night. Atypical chest pain, present on admission. Active. -EKG is SR without abnormal ST or T wave changes -Troponin <0.012 -very strong family history with 3 significant risk factors. -troponin and EKG are both normal -she will be monitored on telemetry with serial troponins and a treadmill nuclear medicine cardiac scan in the morning. -nitroglycerin will be used if her pain returns and she will be continued on aspirin and Simvastatin. Diabetes mellitus type 2, present admission. Chronic. -follow BS AC and HS -gabapentin at night -Glipizide, add Lispro medium dose correctional scale Asthma, present on admission. Chronic. -Albuterol Hypertension, present on admission. Chronic. -lisinopril and HCTZ at home dose Hyperlipidemia, present on admission. Chronic. -Continue Simvastatin -Lipids on 02/22 GERD, present admission. Chronic. -continue high-dose omeprazole Depression, present on admission. Chronic -Continue Venlafaxine Anxiety/panic attack, present on admission. Chronic. -continue venlafaxine, propanolol, lorazepam and hydroxyzine. Her backup decision maker is her For DVT prophylaxis we will use sequential compression devices while she is in bed but will not place her on Lovenox for now as she is ambulatory.
[2021-02-21] MEDS: ASPIRIN EC 81 MG TABLET PO (19:28)
[2021-02-21 20:17] LABS: COVID19 - ADMIT (NP swab/PCR) Negative (Negative)
--- NOTE | 2021-02-21 20:38 | PC.ADMIT ---
[email or web address] Admission Note: The patient,Valery Martinez,50 y/o, was given written information regarding hospital policies, unit procedures and contact persons. Patient's smoking status: Never smoker. Pt arrived from ED via W/C at 1845. A/O. VSS. Denies chest pain. Tele monitor connected. Oriented to room and call system. Low fall risk. Pt assessed to be independent in room. Advised to call staff if she feels unsafe on feet. Pt advised to notify staff of any chest pain or pressure. Pt advised no caffeine until after stress test and NPO 4 hrs prior to test. Call light within reach. Pt verbalized understanding of all and will call for needs. Vital Signs - 8 hr 02/21/21 13:54 02/21/21 15:35 02/21/21 16:59 Temperature 98.0 F Pulse Rate 83 80 78 Respiratory Rate 22 15 18 Blood Pressure 170/95 H 136/82 Pulse Oximetry 100 99 98 02/21/21 17:00 02/21/21 17:30 02/21/21 18:00 Temperature Pulse Rate 77 72 72 Respiratory Rate 19 13 14 Blood Pressure Pulse Oximetry 98 99 100 02/21/21 18:30 02/21/21 18:44 Temperature 97.0 F L Pulse Rate 76 71 Respiratory Rate 24 17 Blood Pressure 140/82 Pulse Oximetry 100 99
[2021-02-21] MEDS: DOXEPIN 10 MG CAPSULE PO (21:29)
[2021-02-21] MEDS: GABAPENTIN 600 MG TABLET PO (21:29)
[2021-02-21] MEDS: INSULIN LISPRO 100 UNIT/ML 3ML VIAL SUBCUT (21:30)
[2021-02-21] MEDS: hydrOXYzine pamoate 25 MG CAPSULE PO (21:30)
[2021-02-21] MEDS: PROPRANOLOL 10 MG TABLET 20 MG PO (21:31)
[2021-02-21] MEDS: VENLAFAXINE ER 75 MG CAP 150 MG PO (21:32)
[2021-02-21] MEDS: LORazepam 1 MG TABLET PO (21:34)
[2021-02-21 23:22] LABS: Troponin I < 0.012 ng/mL (0.01-0.034)
[2021-02-22 02:15] VITALS: BP 114/72; PULSE 70; RESP 20; TEMP 36.2; O2SAT 94
[2021-02-22 06:00] VITALS: BP 110/64; PULSE 69; RESP 18; TEMP 36.1; O2SAT 97
[2021-02-22 06:11] LABS: BUN Creatinine Ratio 31.7 (6-22); Blood Urea Nitrogen 13 mg/dL (7-17); Calcium 8.6 mg/dL (8.4-10.2); Carbon Dioxide 29 mmol/L (22-32); Chloride 101 mmol/L (98-107); Cholesterol 189 mg/dL (140-199); Estimated Glomerular Filt Rate > 60.0 mL/min (>60); Glucose 238 mg/dL (70-100); HEMOLYSIS < 15 (0-50); Potassium 3.2 mmol/L (3.4-5.1); Sodium 135 mmol/L (137-145)
[2021-02-22 06:15] LABS: HDL Cholesterol 41 mg/dL (40-60); LDL Cholesterol Calculated 103 mg/dL (<100); Triglycerides 226 mg/dL (35-150)
[2021-02-22 06:23] LABS: Troponin I < 0.012 ng/mL (0.01-0.034)
[2021-02-22 06:34] LABS: Add Manual Diff / Slide Review NO; Basophils Absolute Auto 100 /uL (0-100); Basophils Percent Auto 1.2 % (0-2); Eosinophils Absolute Auto 100 /uL (0-450); Hematocrit 36.8 % (36-46); Hemoglobin 12.5 g/dL (12.0-16.0); Lymphocytes Absolute Auto 3400 /uL (1100-4500); Lymphocytes Percent Auto 40.2 % (25-40); Mean Corpuscular Volume 82.4 fL (80-100); Monocytes Absolute Auto 600 /uL (0-900); Monocytes Percent Auto 6.9 % (3-14); Neutrophils Absolute Auto 4300 /uL (1500-7000); Neutrophils Percent Auto 50.7 % (50-75); Platelet Count 230 X10^3/uL (150-400); Red Blood Cell Count 4.46 X10^6/uL (4.0-5.2); Red Cell Distribution Width 13.4 % (11.6-14.8); White Blood Cell Count 8.4 X10^3/uL (4.5-11.0)
[2021-02-22 08:00] VITALS: BP 124/76; PULSE 73; RESP 16; TEMP 36.7; O2SAT 98
[2021-02-22] MEDS: POTASSIUM CHLORIDE IN WATER 10 MEQ/100 ML PIGGYBACK 100 MEQ IV (08:31)
[2021-02-22] MEDS: INSULIN LISPRO 100 UNIT/ML 3ML VIAL SUBCUT ×4 (08:53→21:57)
[2021-02-22] MEDS: ASPIRIN EC 81 MG TABLET PO (08:58)
[2021-02-22] MEDS: PROPRANOLOL 10 MG TABLET 20 MG PO ×2 (09:05→20:37)
[2021-02-22] MEDS: PANTOPRAZOLE DR 40 MG TABLET PO ×2 (09:05→20:37)
[2021-02-22] MEDS: hydroCHLOROthiazide 25 MG TABLET PO (09:05)
[2021-02-22] MEDS: lisinopriL 5 MG TABLET PO (09:05)
[2021-02-22] MEDS: hydrOXYzine pamoate 25 MG CAPSULE PO (09:08)
[2021-02-22] MEDS: SODIUM CHLORIDE 0.9% FLUSH 10 ML IV ×2 (09:14→22:04)
[2021-02-22] MEDS: POTASSIUM CHLORIDE 20 MEQ TAB 40 MEQ PO (11:18)
[2021-02-22 12:00] VITALS: BP 113/72; PULSE 73; RESP 18; TEMP 36.4; O2SAT 98
--- NOTE | 2021-02-22 15:11 | PC.NURSE ---
Pt very somnolent this morning, but up to shower at lunchtime; denies chest pain, nausea, SOB, and denies pain to shoulders/arms; Tele SR BBB; PO potassium due to intolerance of IV potassium to right AC; this RN did not provide much DM education other than CBG numbers and insulin dosse; stress test ordered but waiting for schedule; No Caffeine
--- NOTE | 2021-02-22 15:25 | CM.DANOTE ---
DCP ASSESSMENT: Patient is a 50 year-old female admitted to the hospital for chest pain, vomiting and anxiety attacks. PCP is Tamanna Gordon. Primary Payer is [facility]. 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 Educated patient on role of social work in discharge planning. 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 Her Vidal Martinez will provide transportation at time of D/C. Patient is pending a nuclear medicine cardiac scan tentatively scheduled for later afternoon 02/22/21. PLAN: Anticipate D/C home when medically stable. CM Team to continue to follow. [place] Poon MSW Student Discharge Planning/Care Management CM Discharge Assessment Start: 02/22/21 12:01 Freq: Status: Active Protocol: Document 02/22/21 12:01 AL (Rec: 02/22/21 12:04 AL [id number]) Discharge Planning Assessment Assigned Bass Singer [place] Pablo Student Contact Information Vidal Martinez, Advance Directives? No History Provided By Patient Has Patient been admitted in last 30 No days? Prior Living Arrangements House Household Members spouse,family Type of transporation used prior to Drives own vehicle admit Comment Patients will provide trasportation at time of D/C Independent with ADL's Yes Is patient alert and oriented? Yes Caregiver for Another No Barriers to Discharge No Discharge Plan Home Transportation Arrangement Patients Vidal will provide transporation at time of D/C Referrals Initiated None needed Whiteboard Updated in Patient Room with Yes name and ext. # of Bass Singer Review Status In Process
[2021-02-22 16:00] VITALS: BP 118/74; PULSE 74; RESP 16; TEMP 36.3; O2SAT 98
--- NOTE | 2021-02-22 17:06 | PC.NURSE ---
Called and left a message to MRI regarding NM kendell perf SPECT rest & str Stat. 02/22/2021 at 1707
--- NOTE | 2021-02-22 17:14 | PM.PN.1 ---
Subjective Subjective Date Patient Seen: 02/22/21 Interval history: The patient is a 50-year-old female admitted to the hospital for chest pain. Patient had several episodes of chest pain yesterday and initially thought this was a panic attack. She had pressure nausea and vomiting associated. She was seen in the emergency department and placed on IV heparin and admitted to the hospital for further evaluation. The patient has had no episodes today. Unfortunately the cardiac a area was behind in her stress test will be performed tomorrow. She has no further symptoms today. Exam Vital Signs (past 8 hours): - 02/22/21 12:00 02/22/21 16:00 Temperature 97.5 F L 97.3 F L Pulse Rate 73 74 Respiratory Rate 18 16 Blood Pressure 113/72 118/74 Pulse Oximetry 98 98 Oxygen Delivery Method Room Air Oxygen Flow Rate 0 Narrative Exam Narrative: Pleasant female resting comfortably in no obvious distress Lungs: Clear to auscultation Cardiac exam: Regular rate and rhythm normal S1-S2 Abdomen: Soft nontender nondistended Extremities: No edema Objective Labs Result Diagrams: 02/22/21 05:45 02/22/21 05:45 Labs: Laboratory Results - last 24 hr 02/21/21 02/21/21 02/21/21 16:43 19:10 22:50 WBC RBC Hgb Hct MCV MCH MCHC RDW Plt Count Neut % (Auto) Lymph % (Auto) [place] % (Auto) Eos % (Auto) Baso % (Auto) Neut # (Auto) Lymph # (Auto) [place] # (Auto) Eos # (Auto) Baso # (Auto) Sodium Potassium Chloride Carbon Dioxide BUN Creatinine Estimated GFR BUN/Creatinine Ratio Glucose Calcium Troponin I < 0.012 < 0.012 Triglycerides Cholesterol LDL Cholesterol, Calc HDL Cholesterol SARS-CoV-2 (PCR) Negative 02/22/21 02/22/21 02/22/21 05:45 05:45 05:45 WBC 8.4 RBC 4.46 Hgb 12.5 Hct 36.8 MCV 82.4 MCH 28.0 MCHC 34.0 RDW 13.4 Plt Count 230 Neut % (Auto) 50.7 D Lymph % (Auto) 40.2 H [place] % (Auto) 6.9 Eos % (Auto) 1.0 L Baso % (Auto) 1.2 Neut # (Auto) 4300 Lymph # (Auto) 3400 [place] # (Auto) 600 Eos # (Auto) 100 Baso # (Auto) 100 Sodium 135 L Potassium 3.2 L Chloride 101 Carbon Dioxide 29 BUN 13 Creatinine 0.41 L Estimated GFR > 60.0 BUN/Creatinine Ratio 31.7 H Glucose 238 H D Calcium 8.6 Troponin I < 0.012 Triglycerides 226 H Cholesterol 189 LDL Cholesterol, Calc 103 H HDL Cholesterol 41 SARS-CoV-2 (PCR) PFS Medical History Anxiety Asthma Atypical chest pain Chicken pox Chronic back pain Class 1 obesity (12/25/17) Depression Essential hypertension (12/20/17) GERD (gastroesophageal reflux disease) Headache History of tremor Hyperlipidemia Hypertension Hypoglycemic reaction to insulin in type 2 diabetes mellitus Infertility Insomnia Irregular menstrual cycle Menorrhagia Migraine Palpitations PCOS (polycystic ovarian syndrome) Peripheral neuropathy due to metabolic disorder Piriformis syndrome of left side Seasonal allergies Shoulder pain Sleep apnea Tremor (12/20/17) Uncontrolled type 2 diabetes mellitus (2008) Vertigo Surgical History (Updated 02/21/21 @ 18:45 by Ammy Martínez MD) Anesthesia H/O elbow surgery (2010) H/O unilateral salpingectomy (2001) History of bladder surgery Status post surgery (05/18/12) Family History Brother Age: 51 Hyperlipidemia Diabetes mellitus Hypertension Father CAD (coronary artery disease) Dementia Anxiety and depression Hx of CABG History of heart disease Hypertension Hyperlipidemia Mental health problem Mother DM type 2 (diabetes mellitus, type 2) Hyperlipidemia Anxiety Hypertension Cancer Sister Age: 53 Mental health problem Social History marital status: household members: spouse and family lives independently: Yes housing: house pets and animals: Yes education level: college occupational status: employed Smoking Status: Never smoker alcohol intake: current substance use type: does not use Assessment & Plan Assessment & Plan narrative: his is a 50-year-old female with a strong family history of [place], hypertension, hyperlipidemia, type 2 diabetes mellitus, chronic anxiety and panic attacks who began experiencing left-sided chest pain while watching TV at 7:00 p.m. last night. Atypical chest pain, present on admission. Active. -EKG is SR without abnormal ST or T wave changes -Troponin <0.012 -very strong family history with 3 significant risk factors. -troponin and EKG are both normal -she will be monitored on telemetry with serial troponins and a treadmill nuclear medicine cardiac scan in the morning. -nitroglycerin will be used if her pain returns and she will be continued on aspirin and Simvastatin. -heparin discontinued -await stress test for the morning Diabetes mellitus type 2, present admission. Chronic. -follow BS AC and HS -gabapentin at night -Glipizide, add Lispro medium dose correctional scale Asthma, present on admission. Chronic. -Albuterol Hypertension, present on admission. Chronic. -lisinopril and HCTZ at home dose Hyperlipidemia, present on admission. Chronic. -Continue Simvastatin -Lipids on 02/22 - LDL 103, chol 226 GERD, present admission. Chronic. -continue high-dose omeprazole Depression, present on admission. Chronic -Continue Venlafaxine Anxiety/panic attack, present on admission. Chronic. -continue venlafaxine, propanolol, lorazepam and hydroxyzine. Her backup decision maker is her For DVT prophylaxis we will use sequential compression devices while she is in bed but will not place her on Lovenox for now as she is ambulatory.
[2021-02-22] MEDS: ATORVASTATIN 20 MG TABLET 10 MG PO (20:36)
[2021-02-22] MEDS: VENLAFAXINE ER 75 MG CAP 150 MG PO (20:37)
[2021-02-22] MEDS: DOXEPIN 10 MG CAPSULE PO (20:37)
[2021-02-22] MEDS: MELATONIN 3 MG TABLET 9 MG PO (20:41)
[2021-02-22] MEDS: GABAPENTIN 600 MG TABLET PO (21:00)
[2021-02-22 22:00] VITALS: BP 104/66; PULSE 71; RESP 16; TEMP 36.3; O2SAT 97
[2021-02-23] VITALS (9 sets, daily range): BP systolic 91–124; BP diastolic 58–71; PULSE 65–81; RESP 16–20; TEMP 35.6–36.4; O2SAT 95–99
--- NOTE | 2021-02-23 01:00 | PC.NURSE ---
patient is alert and oriented. Breath sounds CTA with RA sat of 96%. HRR w/telemetry reading of SR w/BBB. Denies chest pain but states she feels a tightness. BP low at 91/58 but is asymptomatic. Denies nausea. BT hypoactive; abdomen is soft. Denies dysuria, frequency or urgency with urination. Independent with mobility; instructed to call for assist if feeling dizzy or lightheaded when getting out of bed. Chronic bilateral foot neuropathy. Refuses SCD's so reminded to ankle wave. Fall risk score is moderate. Verbalizes understanding that she will be NPO after 0400 for stress test which evening RN reported will be at 0800.
[2021-02-23] MEDS: INSULIN LISPRO 100 UNIT/ML 3ML VIAL SUBCUT ×3 (08:27→17:30)
--- NOTE | 2021-02-23 11:10 | PC.NURSE ---
Assess- Patient is alert and oriented x3, she denies chest pain but states that it feels more tight. She is up independently. Patient has had the first part of her stress test done and will go for the second part around 1240. She is resting at this time.
--- NOTE | 2021-02-23 13:47 | PM.TREADMILL ---
Cardiac Stress Test Report Referral & Results Date Patient Seen: 02/23/21 Time Patient Seen: 13:47 Requesting provider: Kinza Coleman Indication: Chest Pain Rest ECG: Sinus rhythm Procedure Note: Standard Jac protocol; 8:27 mins, 8.4 METS Good exercise capacity, KEON -6% but submaximal exercise stress test; patient did not achieve target heart rate 3-4/10 sternum chest tightness at 3:01 mins; chest pain increased to 5/10 at 7:08 mins with no EKG changes; chest pain peaked at 6-7/10 at 8:24 mins into exercise; chest pain resolved at 1:52 mins into recovery No significant ST changes at peak exercise No ectopy Impression: symptom positive exercise stress test Nuclear images pending Please note: Actual ECG tracings can be found in the PACS system.
[2021-02-23] MEDS: ASPIRIN EC 81 MG TABLET PO (15:38)
[2021-02-23] MEDS: hydrOXYzine pamoate 25 MG CAPSULE PO ×2 (15:39→17:32)
[2021-02-23] MEDS: lisinopriL 5 MG TABLET PO (15:39)
[2021-02-23] MEDS: hydroCHLOROthiazide 25 MG TABLET PO (15:39)
--- NOTE | 2021-02-23 17:02 | P.DS_ITS ---
History of Present Illness History of Present Illness Date Patient Seen: 02/23/21 Chief complaint: CHEST PAIN/VOMITTING/ANXIETY ATTACK Narrative: This is a 50-year-old female with a strong family history of [place], hypertension, hyperlipidemia, type 2 diabetes mellitus, chronic anxiety and cabrales ic attacks who began experiencing left-sided chest pain while watching TV at 7:00 p.m. last night. Her father had an [place] with a coronary artery bypass graft at age 39. She has risk factors of hypertension, hyperlipidemia and type 2 diabetes mellitus. She says that the symptoms came on concurrent with her usual panic attack symptoms but were much worse than usual. She experienced significant vomiting that persisted until this morning. There has been no abdominal pain. Her Lipase is 67. She had shortness of breath and palpitations. The pain has been coming on both at rest and with exertion. She was able to get some rest last night and when she got up this morning and tried to take a shower the pain came back. It radiates into both shoulders and both arms with tingling in both hands. She does not usually get this type of symptom with her panic attacks. She has not been tried on nitroglycerin or aspirin so far. Her symptoms had nearly subsided when she got to the emergency department and then resolved on their own. Discharge Providers Provider Date of admission: 02/21/21 18:40 Discharge Date: 02/23/21 Primary care physician: LAURA Gaytan Discharge provider: Eliana Stark MD Summary Hospital Course Discharge Diagnosis: 1. Atypical chest pain, question microvascular angina 2. Low risk stress test 3. Asthma 4. Depression 5. Anxiety 6. Hyperlipidemia 7. Sleep apnea 8. Hypertension 9. Hyperlipidemia 10. Type 2 diabetes Hospital Course: Patient was admitted to the hospital for severe symptomatic chest pain. Her cardiac enzymes were negative. Her EKG revealed no acute STT wave abnormalities. The patient has a strong family history of coronary disease. She also has a history of hypertension hyperlipidemia. Although her troponin and EKG were normal the patient was started on heparin at admission. She ruled out for an [place]. the patient underwent a stress test. This was a low risk study, she did developed chest pain 8 minutes into the study. EKG revealed no acute ST-T changes. The imaging portion showed no evidence of reversible ischemia. However given the patient's clinical profile including diabetes hypertension hyperlipidemia as well as her strong family history there was co ncern that she may have microvascular angina. S to such the patient will be placed on a calcium channel marco a, and a long-acting nitrate to treat her chest pain. She is instructed to follow-up with her primary care provider, Tamanna gordon next week for further evaluation . The patient has had no further chest pain since admission. Patient is deemed appropriate for discharge home. Status at Discharge Cognitive/behavioral status at discharge: oriented Functional status at discharge: independent ambulation Overall status at discharge: patient is back to baseline Time Spent with Patient Time spent: Less than 30 minutes Exam Vital Signs (past 8 hours): - 02/23/21 12:00 02/23/21 15:39 02/23/21 16:00 Temperature 96.9 F L 97.4 F L Pulse Rate 74 81 77 Respiratory Rate 16 16 Blood Pressure 107/71 124/71 112/68 Pulse Oximetry 98 98 Oxygen Delivery Method Room Air Oxygen Flow Rate 0 Narrative Exam Narrative: Pleasant female resting comfortably in no obvious distress Lungs: Clear to auscultation Cardiac exam: Regular rate and rhythm normal S1-S2 Abdomen: Soft nontender nondistended Extremities: No edema Objective Labs Result Diagrams: 02/22/21 05:45 02/22/21 05:45 [facility] Medical History Anxiety Asthma Atypical chest pain Chicken pox Chronic back pain Class 1 obesity (12/25/17) Depression Essential hypertension (12/20/17) GERD (gastroesophageal reflux disease) Headache History of tremor Hyperlipidemia Hypertension Hypoglycemic reaction to insulin in type 2 diabetes mellitus Infertility Insomnia Irregular menstrual cycle Menorrhagia Migraine Palpitations PCOS (polycystic ovarian syndrome) Peripheral neuropathy due to metabolic disorder Piriformis syndrome of left side Seasonal allergies Shoulder pain Sleep apnea Tremor (12/20/17) Uncontrolled type 2 diabetes mellitus (2008) Vertigo Surgical History (Updated 02/21/21 @ 18:45 by Ammy Martínez MD) Anesthesia H/O elbow surgery (2010) H/O unilateral salpingectomy (2001) History of bladder surgery Status post surgery (05/18/12) Family History Brother Age: 51 Hyperlipidemia Diabetes mellitus Hypertension Father CAD (coronary artery disease) Dementia Anxiety and depression Hx of CABG History of heart disease Hypertension Hyperlipidemia Mental health problem Mother DM type 2 (diabetes mellitus, type 2) Hyperlipidemia Anxiety Hypertension Cancer Sister Age: 53 Mental health problem Social History marital status: household members: spouse and family lives independently: Yes housing: house pets and animals: Yes education level: college occupational status: employed Smoking Status: Never smoker alcohol intake: current substance use type: does not use Discharge Assessment & Plan Assessment and Plan Assessment: 1. Atypical chest pain, stress test low risk probability for cardiac ischemia 2. Strong family history of coronary disease 3. Hypertension 4. Hyperlipidemia 5. Type 2 diabetes Plan of Treatment: Patient will be discharged home today Will start calcium channel marco a, Cardizem CD 180 daily Will start Imdur 30 mg daily Will discontinue hydrochlorothiazide Will continue lisinopril She will follow-up with Tamanna gordon next week Discharge Plan Discharge Plan Patient Disposition: Home Discharge orders & Medications Prescriptions: New diltiazem HCl [Cardizem CD] 120 mg capsule,extended release 24hr 120 mg PO DAILY Qty: 30 RF: 0 isosorbide mononitrate 30 mg tablet extended release 24 hr 30 mg PO DAILY Qty: 30 RF: 0 Continued promethazine 25 mg tablet 12.5 mg PO Q6H PRN (Reason: nausea/vomiting) Qty: 30 RF: 2 triamcinolone acetonide 0.5 % ointment 1 applictn Topical BID Qty: 30 RF: 4 hydroxyzine pamoate 25 mg capsule 25 mg PO TID Qty: 60 RF: 0 finasteride 5 mg tablet 5 mg PO DAILY Qty: 90 RF: 3 gabapentin 600 mg tablet 600 mg PO BEDTIME Qty: 90 RF: 2 albuterol sulfate [Ventolin HFA] 90 mcg/actuation HFA aerosol inhaler 2 puff INHALATION Q6H PRN (Reason: shortness of breath or wheezing) Qty: 18 RF: 5 epinephrine [EpiPen 2-Justin] 0.3 mg/0.3 mL auto-injector 0.3 mg IM SEE INSTRUCTIONS Qty: 1 RF: 2 omeprazole 40 mg capsule,delayed release(DR/EC) See Rx Instructions .ROUTE .COMPLEX Qty: 180 RF: 2 glipizide 5 mg tablet extended release 24hr 5 mg PO BID Qty: 180 RF: 1 Hold Instructions: hypoglycemic symptoms lorazepam 1 mg tablet 1 mg PO Q6HP PRN (Reason: anxiety) Qty: 20 RF: 1 aspirin [Adult Low Dose Aspirin] 81 mg tablet,delayed release (DR/EC) 81 mg PO DAILY RF: 0 melatonin 10 mg capsule 10 mg PO BEDTIME PRN (Reason: sleep) Qty: 1 RF: 0 venlafaxine 150 mg capsule,extended release 24hr 150 mg PO BEDTIME Qty: 90 RF: 3 doxepin 10 mg capsule 10 mg PO BEDTIME Qty: 180 RF: 3 simvastatin 5 mg tablet 5 mg PO BEDTIME Qty: 90 RF: 3 lisinopril 5 mg tablet 5 mg PO DAILY Qty: 90 RF: 3 omega-3 fatty acids [Fish Oil Concentrate] 1,000 mg capsule 1,000 mg PO BID RF: 0 propranolol 20 mg tablet 20 mg PO BID Qty: 180 RF: 3 Zyrtec 10 mg capsule 10 mg PO DAILY RF: 0 insulin lispro 100 unit/mL insulin pen See Rx Instructions SUBCUT TID Qty: 15 RF: 1 Discontinued hydrochlorothiazide 25 mg tablet 25 mg PO QDAY Qty: 90 RF: 3 No Action (DME) FreeStyle Raquel 14 Day Sensor Kit See Rx Instructions .ROUTE .MEDSUPPLY Qty: 2 RF: 11 (DME) Blood glucose meter Qty: 1 RF: 0 (DME) lancets Qty: 400 RF: 3 (DME) Test strips Qty: 400 RF: 3 (DME) Pen needles for insulin syringe Qty: 100 RF: 3 Follow up/Referrals: Tamanna Gordon ARNP [Primary Care Provider] - Discharge Health Status Multidrug resistant organism: No MDRO Diet/Activity/Treatments Diet: Carb-consistent/Diabetic, Low-fat and Low-sodium Skin/Wound/Dressing Care Report to your healthcare provider any signs of infection, such as:: increased pain Discharge Data Primary Care Provider: Tamanna Gordon Attending Provider: Ammy Martínez
--- NOTE | 2021-02-23 17:44 | DI.NM.S_ITS ---
DATE OF SERVICE: 02/23/2021 PROCEDURE: Exercise perfusion study. INDICATIONS: Chest pain with underlying hypertension. RADIOPHARMACEUTICAL: 23.2 millicurie technetium-99m Myoview IV was injected at stress and 13.6 millicurie technetium-99m Myoview IV was injected at rest. CARDIAC STRESS: The patient underwent exercise perfusion study under the supervision of an attending staff using standard Jac protocol. She walked on Jac protocol for 8 minutes 27 seconds and achieved maximum heart rate of 135, which was 79 percent of target heart rate. Baseline blood pressure 108/70. Peak blood pressure 160/82 mmHg. The patient achieved 8.4 METs of workload and functional aerobic impairment -6 percent. The patient developed chest discomfort at about 3 minutes into the exercise, which on a scale of 1-10, 3-4 in intensity, which peaked up to 5 and then resolved in recovery within 2 minutes. During chest pain and peak exercise there were no obvious inducible ischemic changes. There were no significant arrhythmias. Baseline rhythm was sinus. RAW DATA: There is breast shadow seen. GATED STUDY: Resting LV ejection fraction 82 percent and stress LV ejection fraction 87 percent. No obvious wall motion abnormalities. Resting end- diastolic volume 74 mL. TID ratio 0.94, which is within normal limits. Lung/heart ratio 0.33, which is within normal limits. MYOCARDIAL PERFUSION: Stress supine, resting supine and stress prone images were compared to each other. Stress supine and resting supine images revealed small size, mildly decreased perfusion of distal anterior wall extending into the distal anteroseptum, which got completely resolved during prone images, suggestive of breast tissue attenuation artifact. No convincing ischemia or infarction pattern seen. CONCLUSION: I will call this study a normal myocardial perfusion study with evidence of breast tissue attenuation artifact, which got resolved during prone images. Good exercise tolerance. It was a mildly submaximal stress test. Preserved left ventricular function. The patient had chest discomfort during exercise without any obvious EKG changes. The patient had a perfusion study in August 2017, at that time, also, she had similar perfusion. At that time, she was able to walk for 8 minutes. Overall, this is a low-risk myocardial perfusion scan. Correlate clinically. Vlaery Martinez - Agustín/luana doc#: [id number]/job#: [id number] dd: 02/23/2021 16:33:00 dt: 02/23/2021 17:24:00 DICTATING MD/COPIES TO: Bruce Michelle MD COPIES MNE: RANJITH;
--- NOTE | 2021-02-23 17:58 | PC.NURSE ---
VSS. Given 5 units humalog. B. Denies pain. IV removed. Discharge instructions reviewed, questions answered. Removed tele. Escorted to personal vehicle via wheelchair. driving home. Off of unit at 17:58.
--- NOTE | 2021-03-17 10:24 | PC.NURSE ---
late entry: 1L NS infused 1831
== END 2021-02-23 17:55 | disposition home or self-care (01) ==
LOC: ED 18:18 → AC 18:40
PROVIDERS: Emergency Medicine; Admitting Provider Family Medicine; Emergency Provider Emergency Medicine; PCP Nurse Practitioner; Referring Provider Emergency Medicine; Visit Provider Family Medicine
DX: R07.89 Other chest pain (principal); I10 Essential (primary) hypertension; E78.5 Hyperlipidemia, unspecified; E11.9 Type 2 diabetes mellitus without complications; F41.9 Anxiety disorder, unspecified; Z79.4 Long term (current) use of insulin; K21.9 Gastro-esophageal reflux disease without esophagitis; J45.909 Unspecified asthma, uncomplicated; G47.30 Sleep apnea, unspecified; F32.9 Major depressive disorder, single episode, unspecified; Z20.822 Contact with and (suspected) exposure to COVID-19
CPT/HCPCS: 36415; 71045; 78452; 80048; 80053; 80061; 82550; 82553; 82962; 83690; 84484; 85025; 87635; 93005; 93017; 96360; 96361; 96372; 99284; C9803; G0378; A9270; A9502; J1815

== ENCOUNTER → 2021-03-24 14:52 | Outpatient (CLI) | payer OTHER, SELFPAY ==
[2021-02-21 18:45] VITALS: BMI 31.1
[2021-03-24 15:23] LABS: COVID19 -Nasal RAPID Negative (Negative)
== END ==
PROVIDERS: PCP Nurse Practitioner; Referring Provider Physician Assistant; Visit Provider Physician Assistant
DX: R51.9 Headache, unspecified (principal); Z20.822 Contact with and (suspected) exposure to COVID-19
CPT/HCPCS: 87635

== ENCOUNTER → 2021-03-28 09:13 | Outpatient (CLI) | payer OTHER, SELFPAY ==
[2021-02-21 18:45] VITALS: BMI 31.1
[2021-03-28 09:44] LABS: COVID19 -Nasal RAPID Negative (Negative)
== END ==
PROVIDERS: PCP Nurse Practitioner; Visit Provider Physician Assistant
DX: R06.02 Shortness of breath (principal); Z20.822 Contact with and (suspected) exposure to COVID-19
CPT/HCPCS: 87635

== ENCOUNTER → 2021-04-06 07:30 | Outpatient (CLI) | payer OTHER, SELFPAY ==
[2021-02-21 18:45] VITALS: BMI 31.1
[2021-04-06 08:38] LABS: COVID19 -Nasal RAPID Negative (Negative)
== END ==
PROVIDERS: PCP Nurse Practitioner; Visit Provider Physician Assistant
DX: Z20.822 Contact with and (suspected) exposure to COVID-19 (principal)
CPT/HCPCS: 87635

== ENCOUNTER → 2021-04-16 12:52 | Outpatient (CLI) | payer OTHER, SELFPAY ==
[2021-02-21 18:45] VITALS: BMI 31.1
--- NOTE | 2021-04-16 12:53 | DI.ECHO.S_ITS ---
[facility] +---------+ : : [address] : : : : [id number] : : : : Phone: [phone]+ Echocardiogram Report + + :Name: JES BELLA Study Date: 04/16/2021 Height: 64 in : :[facility] ReadingLocation: Weight: 185 lb : : Gender: Female BSA: 1.9 m2 : :: 1970 Age: 50 yrs BP: 141/87 mmHg: :Reason For Study: Hypertension : :Ordering Physician: HARSH, : :OMAR Performed By: Don Guadarrama : :Referring: [facility] : + + Interpretation Summary Normal sinus rhythm. Normal LV size, wall thickness, wall motion and LV systolic function. EF is 60-65%. Normal chamber sizes. No significant valvular abnormalities. No evidence of hypertensive heart disease. No prior study available for comparison. Procedure: A two-dimensional transthoracic echocardiogram with color flow and Doppler was performed. The study quality was technically adequate. There is no prior echocardiogram noted for this patient. The patient was in sinus rhythm with heart rates between 82-86 bpm during the exam. Left Ventricle: The left ventricle is normal in size and wall thickness. Left ventricular systolic function is normal. The ejection fraction is estimated to be 60-65%. There are no focal wall motion abnormalities. Diastolic function could not be accurately assessed due to unobtainable data. Right Ventricle: The right ventricle is normal in size and function. Atria: Both atria are normal in size. There is no Doppler evidence for an interatrial shunt. Mitral Valve: The mitral valve is normal in structure and function. There is no mitral regurgitation noted. Aortic Valve: The aortic valve is normal in structure and function. No aortic regurgitation is present. Tricuspid Valve: The tricuspid valve is normal in structure and function. Pulmonary artery pressures cannot be estimated because of the lack of a measurable TR jet velocity but the IVC suggests a CVP of around 3 mmHg. No tricuspid regurgitation. Pulmonic Valve: The pulmonic valve is normal in structure and function. There is a trace or physiologic amount of pulmonic regurgitation. Great Vessels: The aortic root is normal size. The dimensions of the ascending aorta are normal. The IVC is of normal diameter and collapses greater than 50% with a sniff. This suggests a low right atrial pressure of 3 mm Hg. Pericardium/ Pleura There is no pericardial effusion. There is no pleural effusion. MMode/2D Measurements & Calculations LVIDd: 4.5 cm LVOT diam: 2.0 cm LVIDs: 2.8 cm Ao root diam: 2.6 cm FS: 37.9 % asc Aorta Diam: 3.4 cm IVSd: 0.92 cm LVPWd: 0.89 cm LV paz. diameter/BSA (cm/m^2): 2.4 LV sys. diameter/BSA (cm/m^2): 1.5 LA A2 area: 19.3 cm2 RA long axis: 4.9 cm LA A4 area: 16.5 cm2 RA area: 12.4 cm2 LA length (vol): 5.6 cm RA vol: 26.7 ml LA vol: 48.3 ml RA : 14.1 ml/m2 LA vol index: 25.5 ml/m2 TAPSE: 2.0 cm Doppler Measurements & Calculations Ao V2 max: 156.9 cm/sec LVOT Max Bakari: 123.5 cm/sec Ao V2 mean: 107.3 cm/sec LV V1 max P.1 mmHg Ao max P.8 mmHg LV V1 VTI: 25.9 cm Ao mean P.1 mmHg BRANDON(I,D): 2.7 cm2 Ao V2 VTI: 28.2 cm BRANDON(V,D): 2.4 cm2 sev ratio: 0.92 BRANDON indexed to BSA (cm^2/m^2): 1.5 MV E max bakari: 78.2 cm/sec PA pr(Accel): 36.2 mmHg MV A max bakari: 107.6 cm/sec MV E/A: 0.73 Med Peak E' Bakari: 4.2 cm/sec E/E' med: 18.8 Lat Peak E' Bakari: 5.5 cm/sec E/E' lat: 14.2 E/e' average: 16.5 MV dec time: 0.20 sec SV(LVOT): 77.4 ml Electronically signed by: Fiona Mayfield M.D. on Reading Physician:04/17/2021 12:00 AM
== END ==
PROVIDERS: PCP Nurse Practitioner; Referring Provider Nurse Practitioner; Visit Provider Nurse Practitioner
DX: I10 Essential (primary) hypertension (principal); R63.5 Abnormal weight gain; R60.9 Edema, unspecified
CPT/HCPCS: 93306

== ENCOUNTER → 2021-05-12 17:32 | Outpatient (CLI) | payer OTHER, SELFPAY ==
[2021-02-21 18:45] VITALS: BMI 31.1
--- NOTE | 2021-05-12 17:32 | DI.MG.S_ITS ---
BILATERAL DIGITAL SCREENING MAMMOGRAM 3D/2D WITH CAD: 05/12/2021 CLINICAL: Routine screening. Family history of breast cancer. Comparison is made [facility] There are scattered fibroglandular elements in both breasts. Current study was also evaluated with a Computer Aided Detection (CAD) system. No significant masses, calcifications, or other findings are seen in either breast. There has been no significant interval change. IMPRESSION: NEGATIVE There is no mammographic evidence of malignancy. A 1 year screening mammogram is recommended. This exam was interpreted at Station ID: [id number]. NOTE: For mammograms, a report in lay terms will be sent to the patient. Approximately 15% of breast malignancies will not be visualized mammographically. In the management of a palpable breast mass, a negative mammogram must not discourage biopsy of a clinically suspicious lesion. Electronically Signed By: Lamberto amaro/efrem:05/13/2021 08:31:15 letter sent: Normal Exam ACR BI-RADS Category 1: Negative 3341F
== END ==
PROVIDERS: PCP Nurse Practitioner; Referring Provider Nurse Practitioner; Visit Provider Nurse Practitioner
DX: Z12.31 Encounter for screening mammogram for malignant neoplasm of breast (principal); Z80.3 Family history of malignant neoplasm of breast
CPT/HCPCS: 77063; 77067

== ENCOUNTER → 2021-06-16 | Outpatient (CLI) | payer OTHER, SELFPAY ==
[2021-02-21 18:45] VITALS: BMI 31.1
== END ==
PROVIDERS: PCP Nurse Practitioner; Referring Provider Internal Medicine; Visit Provider Internal Medicine
DX: Z23 Encounter for immunization (principal)
CPT/HCPCS: 90471; 90686

== ENCOUNTER → 2021-08-25 15:49 | Outpatient (CLI) | payer OTHER, SELFPAY ==
[2021-02-21 18:45] VITALS: BMI 31.1
[2021-08-25 16:16] LABS: COVID19 -Nasal RAPID Negative (Negative)
== END ==
PROVIDERS: PCP Nurse Practitioner; Referring Provider Nurse Practitioner Family; Visit Provider Nurse Practitioner Family
DX: Z20.822 Contact with and (suspected) exposure to COVID-19 (principal)
CPT/HCPCS: 87635

== ENCOUNTER → 2021-09-28 10:01 | Outpatient (CLI) | payer OTHER, SELFPAY ==
[2021-02-21 18:45] VITALS: BMI 31.1
[2021-09-28 11:15] LABS: Add Manual Diff / Slide Review NO; Basophils Absolute Auto 100 /uL (0-100); Basophils Percent Auto 0.9 % (0-2); Eosinophils Absolute Auto 300 /uL (0-450); Eosinophils Percent Auto 2.8 % (2-4); Hematocrit 41.2 % (36-46); Lymphocytes Absolute Auto 2000 /uL (1100-4500); Lymphocytes Percent Auto 20.7 % (25-40); Mean Corpuscular HGB Conc 33.9 % (30-36); Mean Corpuscular Hemoglobin 27.8 PG (26-34); Mean Corpuscular Volume 81.8 fL (80-100); Monocytes Absolute Auto 600 /uL (0-900); Monocytes Percent Auto 6.3 % (3-14); Neutrophils Absolute Auto 6700 /uL (1500-7000); Neutrophils Percent Auto 69.3 % (50-75); Platelet Count 284 X10^3/uL (150-400); Red Blood Cell Count 5.03 X10^6/uL (4.0-5.2); Red Cell Distribution Width 13.6 % (11.6-14.8); White Blood Cell Count 9.6 X10^3/uL (4.5-11.0)
[2021-09-28 11:27] LABS: Appearance Urine UA SL CLOUDY; Bilirubin Urine UA NEGATIVE (NEGATIVE); Color Urine UA YELLOW; Glucose Urine UA 2+ g/dL (Negative); Ketones Urine UA NEGATIVE (NEGATIVE); Leukocyte Esterase Urine UA NEGATIVE (NEGATIVE); Nitrite Urine UA NEGATIVE (Negative); Occult Blood Urine UA TRACE-LYSED (Negative); Protein Urine UA NEGATIVE (Negative); Urobilinogen Urine UA 0.2 E.U./dL (0.2)
[2021-09-28 11:32] LABS: pH Urine UA 5.5 (4.5-8.0)
[2021-09-28 11:40] LABS: Hemoglobin A1C% w Est Avg Glu 13.7 % (4.0-6.0)
[2021-09-28 12:09] LABS: Alanine Aminotransferase 53 IU/L (<35); Albumin 4.1 g/dL (3.5-5.0); Albumin Globulin Ratio 1.1 (1.0-2.8); Alkaline Phosphatase 128 U/L (38-126); Aspartate Aminotransferase 46 IU/L (14-36); Bilirubin Total 0.5 mg/dL (0.2-1.3); Blood Urea Nitrogen 12 mg/dL (7-17); Calcium 9.6 mg/dL (8.4-10.2); Chloride 94 mmol/L (98-107); Cholesterol 183 mg/dL (140-199); Estimated Glomerular Filt Rate > 60.0 mL/min (>60); Globulin 3.7 g/dL (1.7-4.1); Glucose 357 mg/dL (70-100); HDL Cholesterol 57 mg/dL (40-60); HEMOLYSIS < 15 (0-50); LDL Cholesterol Calculated 83 mg/dL (<100); Magnesium 1.7 mg/dL (1.6-2.3); Potassium 3.7 mmol/L (3.4-5.1); Sodium 132 mmol/L (137-145); Total Protein 7.8 g/dL (6.3-8.2); Triglycerides 215 mg/dL (35-150)
[2021-09-28 12:13] LABS: Bacteria Urine Many (>30); Culture Indicated Urine Specimen Cultured; RBC Urine None Seen (0-5/HPF); Squamous Epithelial Cell Urine 1-5 /HPF (0-5/HPF); WBC Urine 30-100/HPF (0-5/HPF)
[2021-09-28 12:17] LABS: Free T4, Direct Thyroxine 1.44 ng/dL (0.78-2.19)
[2021-09-28 12:30] LABS: Thyroid Stimulating Hormone 1.11 uIU/mL (0.47-4.68)
[2021-09-28 13:01] LABS: Carbon Dioxide 30 mmol/L (22-32)
== END ==
PROVIDERS: PCP Nurse Practitioner; Referring Provider Nurse Practitioner; Visit Provider Nurse Practitioner
DX: R42 Dizziness and giddiness (principal); E11.65 Type 2 diabetes mellitus with hyperglycemia; I10 Essential (primary) hypertension; R00.2 Palpitations; R26.89 Other abnormalities of gait and mobility; E78.2 Mixed hyperlipidemia; Z79.899 Other long term (current) drug therapy; R30.0 Dysuria
CPT/HCPCS: 36415; 80053; 80061; 81001; 83036; 83735; 84439; 84443; 84481; 85025; 87077; 87086; 87186

== ENCOUNTER → 2021-11-30 09:02 | Outpatient (CLI) | payer OTHER, SELFPAY ==
[2021-10-01 12:17] VITALS: BMI 31.1
[2021-11-30 09:47] LABS: Add Manual Diff / Slide Review NO; Basophils Absolute Auto 100 /uL (0-100); Eosinophils Absolute Auto 300 /uL (0-450); Eosinophils Percent Auto 3.7 % (2-4); Hematocrit 39.8 % (36-46); Hemoglobin 13.6 g/dL (12.0-16.0); Lymphocytes Absolute Auto 2000 /uL (1100-4500); Lymphocytes Percent Auto 21.5 % (25-40); Mean Corpuscular HGB Conc 34.3 % (30-36); Mean Corpuscular Volume 81.8 fL (80-100); Monocytes Absolute Auto 400 /uL (0-900); Monocytes Percent Auto 4.5 % (3-14); Neutrophils Absolute Auto 6600 /uL (1500-7000); Neutrophils Percent Auto 69.3 % (50-75); Platelet Count 280 X10^3/uL (150-400); Red Blood Cell Count 4.86 X10^6/uL (4.0-5.2); Red Cell Distribution Width 13.6 % (11.6-14.8); White Blood Cell Count 9.5 X10^3/uL (4.5-11.0)
[2021-11-30 10:04] LABS: Hemoglobin A1C% w Est Avg Glu 11.8 % (4.0-6.0)
[2021-11-30 10:15] LABS: Alanine Aminotransferase 53 IU/L (<35); Albumin 4.2 g/dL (3.5-5.0); Albumin Globulin Ratio 1.1 (1.0-2.8); Alkaline Phosphatase 110 U/L (38-126); Aspartate Aminotransferase 52 IU/L (14-36); Bilirubin Total 0.5 mg/dL (0.2-1.3); Blood Urea Nitrogen 15 mg/dL (7-17); Calcium 9.7 mg/dL (8.4-10.2); Carbon Dioxide 29 mmol/L (22-32); Chloride 96 mmol/L (98-107); Cholesterol 191 mg/dL (140-199); Estimated Glomerular Filt Rate > 60.0 mL/min (>60); Globulin 3.9 g/dL (1.7-4.1); Glucose 312 mg/dL (70-100); HDL Cholesterol 59 mg/dL (40-60); HEMOLYSIS < 15 (0-50); LDL Cholesterol Calculated 94 mg/dL (<100); Potassium 4.4 mmol/L (3.4-5.1); Sodium 135 mmol/L (137-145); Total Protein 8.1 g/dL (6.3-8.2); Triglycerides 191 mg/dL (35-150)
[2021-11-30 10:39] LABS: Thyroid Stimulating Hormone 1.23 uIU/mL (0.47-4.68)
== END ==
PROVIDERS: PCP Nurse Practitioner; Referring Provider Nurse Practitioner; Visit Provider Nurse Practitioner
DX: E11.65 Type 2 diabetes mellitus with hyperglycemia (principal); E78.2 Mixed hyperlipidemia; I10 Essential (primary) hypertension; Z00.00 Encounter for general adult medical examination without abnormal findings
CPT/HCPCS: 36415; 80053; 80061; 83036; 84443; 85025

== ENCOUNTER → 2021-12-08 09:21 | Outpatient (CLI) | payer OTHER, SELFPAY ==
[2021-10-01 12:17] VITALS: BMI 31.1
[2021-12-08 10:39] LABS: Appearance Urine UA CLEAR; Bilirubin Urine UA NEGATIVE (NEGATIVE); Color Urine UA YELLOW; Glucose Urine UA 2+ g/dL (Negative); Ketones Urine UA NEGATIVE (NEGATIVE); Leukocyte Esterase Urine UA NEGATIVE (NEGATIVE); Nitrite Urine UA NEGATIVE (Negative); Occult Blood Urine UA NEGATIVE (Negative); Protein Urine UA NEGATIVE (Negative); Urobilinogen Urine UA 0.2 E.U./dL (0.2)
== END ==
PROVIDERS: PCP Nurse Practitioner; Visit Provider Nurse Practitioner
DX: E11.65 Type 2 diabetes mellitus with hyperglycemia (principal); Z87.440 Personal history of urinary (tract) infections
CPT/HCPCS: 81003

== ENCOUNTER → 2022-01-13 11:12 | Outpatient (CLI) | payer OTHER, SELFPAY ==
[2021-10-01 12:17] VITALS: BMI 31.1
--- NOTE | 2022-01-19 09:43 | DIAB.INIT ---
Initial Diabetes Education Assessment Name: Valery Martinez Date: 01/13/22 Time: [id number]-[id number] Dx: Type II diabetes with hyperglycemia, HTN, Obesity, HLD Provider: Tamanna Gordon Valery presents today for visit regarding T2DM. PMHx of PCOS. States she has had T2DM for 5-10 years. Currently cares for her parents, father with dementia. Her lives in there home separately with his father. Endorses increased stress and decreased self-care. Recently started increased dose of Trulicity, but sometimes forgets to take it. Endorses issues with foggy brain, memory, and fatigue. [facility] provider suggested she was admitted due to s/s of hyperglycemia and UTI. She refused but was open to regular infusions/IV hydration (1-2 months ago). Has cut out soda, reduced carb portions. Working on cutting out sweetened tea. Interested in keeping a food journal since she has a tough time remembering what she eats. Has a new puppy. Diet Recall: 8a: 1 1/4 c oatmeal with 1 TBS B sugar and butter +/- 1/2 sweet tea 12p: salad with 1/3c peas 3p: small bag chips, pretzels or banana chips or one fruit 630p: 1c rice, veggies 2c squash, shrimp +/- 12oz apple juice or milk 8p: nothing or 10 crackers or 2c cereal Beverages: 30oz water, +/- sweet tea, juice, milk Anthropometrics: Ht: 64 Wt: 189# last wt Physical Activity: 3 months ago was working out 3-4 x per week for 60 min. Wants to go back to this. Self-Monitoring Blood Glucose: Uses [facility]. Did not bring phone or log book. Reports feeling low around 119 mg/dL, likely r/t her body acclimating to in-range BG. states last night a reading of 289 mg/dL H. Earlier this week reports random BG of 170-180 mg/dL. Sometimes FBG of 170 mg/dL H. Diabetes Medications: Glipizide EER 20mg Trulicity 4.5 mg weekly Pertinent Labs: 11/2021 hgA1c: 11.8% H cholesterol: 191 LDL: 94 HDL: 59 T H Past Medical History: (Last Reviewed 12/30/21 @ 08:11 by Tamanna Brown, PURCHASING CONTRACTING CLERK) Anxiety Asthma Atypical chest pain Chicken pox Chronic back pain Class 1 obesity (12/25/17) Depression Elevated LFTs Essential hypertension (12/20/17) GERD (gastroesophageal reflux disease) H/O elbow surgery (2010) Lateral epicondyle release H/O unilateral salpingectomy (2001) Headache History of bladder surgery History of tremor Hyperlipidemia Hypertension Hypoglycemic reaction to insulin in type 2 diabetes mellitus Infertility Insomnia Irregular menstrual cycle Lumbar strain Menorrhagia Migraine Palpitations PCOS (polycystic ovarian syndrome) Peripheral neuropathy due to metabolic disorder Piriformis syndrome of left side Seasonal allergies Shoulder pain Sleep apnea Tremor (12/20/17) Uncontrolled type 2 diabetes mellitus (2008) Vertigo Intervention: This participant was very receptive. Provided appropriate educational handouts. Discussed the following topics: Completed intake assessment. Discussed barriers to care. Self-monitoring, how often, and when to check. Suggested checking at different times to evaluate meals Plate Method, impact of macronutrients on blood sugar, meal timing, carbohydrate counting, pairing macronutrients and spreading out carbohydrates for better blood glucose management General recommended servings for carbohydrates at meals and snacks Role of physical activity and following provider guidelines for safety Created SMART goals for patient self-care and success. Goals: Set alarm for Trulicity each week Bring BG next visit: check FBG and a few pre/post meals Keep food journal Avoid sweetened beverages Follow-up: [facility] MOR[facility] follow-up in 2-3 weeks Anabelle Izaguirre RDN, JOSH Certified Diabetes Care and Crimp Setter P: [phone] Thank you for this referral
== END ==
PROVIDERS: PCP Nurse Practitioner; Referring Provider Nurse Practitioner; Visit Provider Nurse Practitioner
DX: E11.65 Type 2 diabetes mellitus with hyperglycemia (principal); I10 Essential (primary) hypertension; E78.5 Hyperlipidemia, unspecified; E66.9 Obesity, unspecified; Z79.84 Long term (current) use of oral hypoglycemic drugs; Z71.3 Dietary counseling and surveillance; Z79.899 Other long term (current) drug therapy
CPT/HCPCS: G0108

== ENCOUNTER → 2022-04-26 06:46 | Outpatient (CLI) | payer OTHER, SELFPAY ==
[2021-10-01 12:17] VITALS: BMI 31.1
--- NOTE | 2022-04-26 06:47 | DI.US.S_ITS ---
PROCEDURE: US ABDOMEN COMPLETE INDICATIONS: ELEVATED LIVER FUNCTION TESTS FOR 3+ MONTHS TECHNIQUE: Real-time scanning was performed of the abdominal and retroperitoneal organs, with image documentation. COMPARISON: [facility], [place], ABDOMEN COMPLETE, 04/17/2009, 8:05. [facility], [place], ABDOMEN COMPLETE, 06/30/2008, 7:40. FINDINGS: Liver: The liver is 16.1 cm in length and demonstrates increased echogenicity throughout. The surface of the liver has a nodular appearance. Multiple hypoechoic foci are present within the liver suggesting focal fat. The largest regions adjacent to the gallbladder fossa. Gallbladder: The gallbladder wall at measures 1.8 cm in diameter. Sludge and stones are present in the gallbladder fundus. No pericholecystic fluid or sonographic Jeffers sign. Biliary ducts: Intrahepatic bile ducts are non-dilated. Extrahepatic bile duct caliber measures 5.2 mm. Normal is 6-7 mm or less in diameter, or 10 mm or less post-cholecystectomy. Pancreas: Visualized portions of the pancreas are sonographically normal. Spleen: Spleen is normal in size and homogeneous in echotexture. Kidneys: Kidneys are normal in size and echotexture. Right kidney measures 14.1 cm long; left kidney measures 13.2 cm long. No hydronephrosis or nephrolithiasis. No solid masses. There is trace pelviectasis slightly greater on the right than on the left. Aorta: Visualized aorta is normal in caliber at less than 3 cm. The proximal aorta is not visualized. Iliacs: Proximal common iliac arteries are normal in caliber at less than 2.5 cm. IVC: Intrahepatic inferior vena cava is patent. Miscellaneous: No free abdominal fluid. IMPRESSION: 1. Increased hepatic echogenicity and surface nodularity suggesting hepatic cirrhosis. Differential considerations include hepatic steatosis. 2. Cholelithiasis. No findings to suggest choledocholithiasis or acute cholecystitis. Dictated by: Mariah Wen M.D. on 04/26/2022 at 11:20 Approved by: Mariah Wen M.D. on 04/26/2022 at 11:24
== END ==
PROVIDERS: PCP Nurse Practitioner; Referring Provider Nurse Practitioner; Visit Provider Nurse Practitioner
DX: K80.20 Calculus of gallbladder without cholecystitis without obstruction (principal); R79.89 Other specified abnormal findings of blood chemistry
CPT/HCPCS: 76700

== ENCOUNTER → 2022-04-27 06:56 | Outpatient (CLI) | payer OTHER, SELFPAY ==
[2021-10-01 12:17] VITALS: BMI 31.1
[2022-04-27 08:39] LABS: Hemoglobin A1C% w Est Avg Glu 13.2 % (4.0-6.0)
[2022-04-27 08:42] LABS: Alanine Aminotransferase 86 IU/L (<35); Albumin 3.9 g/dL (3.5-5.0); Alkaline Phosphatase 160 U/L (38-126); Aspartate Aminotransferase 67 IU/L (14-36); BUN Creatinine Ratio 20.3 (6-22); Bilirubin Total 0.5 mg/dL (0.2-1.3); Blood Urea Nitrogen 12 mg/dL (7-17); Calcium 9.1 mg/dL (8.4-10.2); Carbon Dioxide 29 mmol/L (22-32); Chloride 92 mmol/L (98-107); Estimated Glomerular Filt Rate > 60 mL/min (>60); Globulin 3.9 g/dL (1.7-4.1); Glucose 416 mg/dL (70-100); HEMOLYSIS < 15 (0-50); Sodium 131 mmol/L (137-145); Total Protein 7.8 g/dL (6.3-8.2)
== END ==
PROVIDERS: PCP Nurse Practitioner; Referring Provider Nurse Practitioner; Visit Provider Nurse Practitioner
DX: E11.65 Type 2 diabetes mellitus with hyperglycemia (principal); I10 Essential (primary) hypertension; R79.89 Other specified abnormal findings of blood chemistry; Z79.899 Other long term (current) drug therapy
CPT/HCPCS: 36415; 80053; 83036

== ENCOUNTER → 2022-06-14 11:01 | Outpatient (CLI) | payer OTHER, SELFPAY ==
[2021-10-01 12:17] VITALS: BMI 31.1
== END ==
PROVIDERS: PCP Nurse Practitioner; Referring Provider Internal Medicine; Visit Provider Internal Medicine
DX: Z23 Encounter for immunization (principal)
CPT/HCPCS: 90471; 90686

== ENCOUNTER → 2022-06-22 07:08 | Outpatient (CLI) | payer OTHER, SELFPAY ==
[2021-10-01 12:17] VITALS: BMI 31.1
[2022-06-22 08:12] LABS: Hemoglobin A1C% w Est Avg Glu > 14.0 % (4.0-6.0)
[2022-06-22 08:15] LABS: INR 1.1 (0.9-1.3); Prothrombin Time 12.5 SECONDS (10.1-12.7)
[2022-06-22 08:23] LABS: Alanine Aminotransferase 63 IU/L (<35); Albumin 4.1 g/dL (3.5-5.0); Albumin Globulin Ratio 0.9 (1.0-2.8); Alkaline Phosphatase 154 U/L (38-126); Aspartate Aminotransferase 53 IU/L (14-36); Bilirubin Total 0.5 mg/dL (0.2-1.3); Bilirubin Unconjugated 0.3 mg/dL (0.0-1.1); Globulin 4.4 g/dL (1.7-4.1); HEMOLYSIS 21 (0-50); Total Protein 8.5 g/dL (6.3-8.2)
[2022-06-22 08:57] LABS: Ferritin 200 ng/mL (11-264)
[2022-06-23 05:18] LABS: Hepatitis B Surf AB Quant 22.1 mIU/mL (Immunity>9.9)
[2022-06-23 10:01] LABS: Alpha 1 Anti Trypsin 152 mg/dL (101-187)
[2022-06-23 15:41] LABS: Hepatitis B Surface Antigen NEGATIVE s/c (NEGATIVE)
[2022-06-23 15:51] LABS: Hep C Virus Ab w/Reflex Quant NEGATIVE s/c (NEGATIVE)
[2022-06-24 18:13] LABS: ANA Screen, IFA Positive (.)
[2022-06-26 13:20] LABS: Smooth Muscle Antibody 9 Units (0-19)
[2022-06-27 09:34] LABS: Hepatitis Be Antibody Negative (Negative)
== END ==
PROVIDERS: PCP Nurse Practitioner; Referring Provider Physician Assistant; Visit Provider Physician Assistant
DX: R94.5 Abnormal results of liver function studies (principal)
CPT/HCPCS: 36415; 80076; 82103; 82728; 83036; 83516; 85610; 86038; 86706; 86707; 86803; 87340

== ENCOUNTER → 2022-08-01 09:06 | Outpatient (CLI) | payer OTHER, SELFPAY ==
[2021-10-01 12:17] VITALS: BMI 31.1
[2022-08-01 09:48] LABS: COVID19 -Nasal RAPID Negative (Negative)
== END ==
PROVIDERS: PCP Nurse Practitioner; Visit Provider Surgery
DX: Z01.812 Encounter for preprocedural laboratory examination (principal); Z20.822 Contact with and (suspected) exposure to COVID-19
CPT/HCPCS: 87635

== ENCOUNTER 2022-08-01 09:08 | Day surgery (SDC) | payer OTHER, SELFPAY ==
[2021-10-01 12:17] VITALS: BMI 31.1
--- NOTE | 2022-08-01 | PATH_ITS ---
[facility] Accession Number: [id number] . 01 Material submitted: . PART A: duodenum - DUODENUM BIOPSY PART B: stomach - ANTRUM POLYP PART C: gastrointestinal site - GASTRIC BODY POLYP PART D: esophagus - MID ESOPHAGUS BIOPSY. Modifiers: mid PART E: colon - RANDOM COLON BIOPSIES . 01 Diagnosis: A. Duodenum, Biopsy: Duodenal mucosa with no diagnostic abnormality. Negative for active inflammation, features of sprue, dysplasia, or malignancy. . B. Antrum, Polyp, Biopsy: Polypoid gastric antral mucosa with focal erosion and with associated reactive gastropathy alterations. No Helicobacter pylori organisms identified on immunohistochemical evaluation. No intestinal metaplasia, dysplasia, or malignancy. . C. Gastric Body Polyp, Biopsy: Fundic gland polyp. No Helicobacter pylori organisms identified on H/E stain. No intestinal metaplasia, dysplasia, or malignancy. . . D. Mid Esophagus, Biopsy: Squamous epithelium with no diagnostic abnormality. Intraepithelial eosinophils are not increased. Negative for dysplasia and malignancy. . E. Random Colon, Biopsy: Colonic mucosa with no diagnostic abnormality. Negative for active, chronic, and microscopic colitis. Negative for dysplasia and malignancy. [facility] 08/05/2022 1217 Local . 01 Electronically signed: . Alysia Devine MD, Pathologist NPI- [id number] . 01 Gross description: . Part A: DUODENUM BIOPSY: Received in formalin are 2 fragment(s) of gleason, soft tissue measuring 0.3 x 0.2 x 0.2 cm to 0.2 x 0.1 x 0.1 cm submitted entirely in 1 cassette(s) Part B: ANTRUM POLYP: Received in formalin is 1 fragment(s) of gleason, soft tissue measuring 0.2 x 0.1 x 0.1 cm submitted entirely in 1 cassette(s) Part C: GASTRIC BODY POLYP: Received in formalin are 4 fragment(s) of gleason, soft tissue measuring 0.3 x 0.3 x 0.1 cm to 0.2 x 0.2 x 0.1 cm submitted entirely in 1 cassette(s) Part D: MID ESOPHAGUS BIOPSY: Received in formalin are 4 fragment(s) of gleason, soft tissue measuring 0.3 x 0.1 x 0.1 cm to 0.2 x 0.1 x 0.1 cm submitted entirely in 1 cassette(s) Part E: RANDOM COLON BIOPSIES: Received in formalin are 2 fragment(s) of gleason, soft tissue measuring 0.5 x 0.2 x 0.1 cm to 0.2 x 0.2 x 0.1 cm submitted entirely in 1 cassette(s) /CPE 08/02/2022 0901 Local . 01 Microscopic: . B. An immunohistochemical stain was performed to evaluate for Helicobacter organisms and is negative. The control stain showed appropriate reactivity. . * This test was developed and its performance characteristics determined by [facility]. It has not been cleared or approved by the U.S. Food and Drug Administration. The FDA has determined that such clearance or approval is not necessary. This test is used for clinical purposes. It should not be regarded as investigational or for research. . 01 Pathologist provided ICD-10: K29.70, K29.60, K25.9, D13.1 . 01 CPT . 490987, 769945, 351298, 947759, 346123, L64811 Specimen Comment: A courtesy copy of this report has been sent to [phone] Performed at: 01 [facility] [address] [place] [address] [address], [place], [place] [id number] MD Lamberto Brown MD Phone: [phone]
[2022-08-01] MEDS: SODIUM CHLORIDE 0.9% 1,000 ML 100 ML IV (10:04)
[2022-08-01 10:05] VITALS: BP 132/89; PULSE 84; RESP 14; O2SAT 100; BMI 31.0
--- NOTE | 2022-08-01 10:45 | PM.HP.1 ---
History of Present Illness History of Present Illness Date Patient Seen: 08/01/22 Time Patient Seen: 10:45 Chief complaint: DX COLONOSCOPY/EGD W/POSS BX'S Narrative: I reviewed the note from Shameka Santillan. Dysphagia. Not improved with PPI. Altered bowel habit with diarrhea constipation but primarily constipation. Patient History Medical History Anxiety Asthma Atypical chest pain Chicken pox Chronic back pain Class 1 obesity (12/25/17) Depression Elevated LFTs Essential hypertension (12/20/17) GERD (gastroesophageal reflux disease) Headache History of tremor Hyperlipidemia Hypertension Hypoglycemic reaction to insulin in type 2 diabetes mellitus Infertility Insomnia Irregular menstrual cycle Lumbar strain Menorrhagia Migraine Palpitations PCOS (polycystic ovarian syndrome) Peripheral neuropathy due to metabolic disorder Piriformis syndrome of left side Seasonal allergies Shoulder pain Sleep apnea Tremor (12/20/17) Uncontrolled type 2 diabetes mellitus (2008) Vertigo Surgical History Anesthesia H/O elbow surgery (2010) H/O unilateral salpingectomy (2001) History of bladder surgery Status post surgery (05/18/12) Family & Social History Family History Brother Age: 52 Hyperlipidemia Diabetes mellitus Hypertension Father CAD (coronary artery disease) Dementia Anxiety and depression Hx of CABG History of heart disease Hypertension Hyperlipidemia Mental health problem Mother DM type 2 (diabetes mellitus, type 2) Hyperlipidemia Anxiety Hypertension Cancer Sister Age: 54 Mental health problem Social History: household members spouse,family lives independently Yes Tobacco & Substance use: Smoking Status Never smoker alcohol intake current alcohol intake frequency holiday/special occasion Substance Use Type does not use Meds Home Medications and Allergies Home Medications Medication Instructions Recorded Confirmed Type hydroxyzine pamoate 25 mg capsule 25 mg PO TID #60 caps 12/27/19 08/01/22 Rx cetirizine 10 mg capsule (Zyrtec) 10 mg PO DAILY 04/09/20 08/01/22 History Blood glucose meter #1 ea 05/28/20 05/12/22 Rx Test strips #400 ea 05/28/20 05/12/22 Rx lancets #400 ea 05/28/20 05/12/22 Rx epinephrine 0.3 mg/0.3 mL 0.3 mg (0.3 mL) IM SEE 09/16/20 08/01/22 Rx injection, auto-injector (EpiPen INSTRUCTIONS #1 pkg 2-Justin) doxepin 10 mg capsule 10 mg PO BEDTIME #180 caps 01/01/21 08/01/22 Rx omega-3 fatty acids 1,000 mg 1,000 mg PO BID 01/01/21 05/12/22 History capsule (Fish Oil Concentrate) Massage Therapy #16 ea 03/04/21 05/12/22 Rx triamcinolone acetonide 0.5 % 1 applic topical BID #15 grams 03/22/22 05/12/22 Rx topical cream hydrochlorothiazide 25 mg tablet See Rx Instructions .Route 04/04/22 08/01/22 Rx .COMPLEX #180 tabs albuterol sulfate 90 mcg/actuation See Rx Instructions .Route 04/25/22 08/01/22 Rx aerosol inhaler .COMPLEX #18 grams omeprazole 40 mg capsule,delayed See Rx Instructions .Route 04/25/22 08/01/22 Rx release .COMPLEX #180 caps propranolol 20 mg tablet See Rx Instructions .Route 04/25/22 08/01/22 Rx .COMPLEX #180 tabs Dexcon 6G CGM #1 ea 06/27/22 Rx pioglitazone 45 mg tablet 45 mg PO DAILY #90 tabs 06/27/22 08/01/22 Rx lorazepam 1 mg tablet 1 mg PO Q6HP PRN anxiety #20 tabs 06/29/22 08/01/22 Rx duloxetine 20 mg capsule,delayed 40 mg PO BID #360 caps 07/13/22 08/01/22 Rx release Dexcon Sensors #8 ea 07/27/22 Rx Allergies Allergy/AdvReac Type Severity Reaction Status Date / Time bee venom protein (honey bee) Allergy Severe Anaphylaxis Verified 08/01/22 09:37 butalbital [BUTALBITAL] Allergy Mild FACIAL Verified 08/01/22 09:37 SWELLING oxycodone [OXYCODONE] Allergy Mild nausea, Verified 08/01/22 09:37 vomiting and chest tightness primidone [PRIMIDONE] Allergy Mild DIZZYNESS,A Verified 08/01/22 09:37 GITATION,CO NFUSION Sulfa (Sulfonamide Allergy Mild RASH Verified 08/01/22 09:37 Antibiotics) [SULFA (SULFONAMIDE ANTIBIOTICS)] dulaglutide AdvReac Severe muscular Verified 08/01/22 09:37 weakness in legs Barbiturates [BARBITURATES] AdvReac Mild DIZZYNESS, Verified 08/01/22 09:37 AGITTION, CONFUSION Review of Systems Review of Systems ROS: Yes All systems reviewed with the patient and are negative except as otherwise documented Exam Vital Signs (past 8 hours): - 08/01/22 10:05 Pulse Rate 84 Respiratory Rate 14 Blood Pressure 132/89 Pulse Oximetry 100 Oxygen Delivery Method Room Air Oxygen Delivery Method Room Air Const General: cooperative HENMT Head: normal to inspection Eyes General: appearance normal, both eyes and all related structures Neck Neck: normal visual inspection Chest Chest: normal inspection of the chest Resp Effort & Inspection: normal respiratory effort Cardio Rate: regular rate GI Inspection: normal to inspection Skin General: no rashes or lesions noted Neuro General: patient alert and patient awake Extrem General: normal to inspection and no pedal edema Psych Appearance: grossly normal Assessment & Plan Assessment & Plan narrative: 52-year-old female with dysphagia and altered bowel habit. EGD and colonoscopy are pursued today. Time Spent With Patient Critical Care time: I spent a total of [] minutes of critical care time on this patient's care today; this time is exclusive of procedural time.
--- NOTE | 2022-08-01 10:47 | PM.PREOP ---
Pre-operative Note COVID-19 COVID-19 status: Negative Result date/Date tested (Pos, Neg/Pending): 08/01/22 Criteria for continued procedure: Possibility delay results in more complex future surgery or treatment Interval Note History & Physical reviewed/Exam performed by Physician: Yes Changes to H&P: No ASA Class (for procedural sedation): III
[2022-08-01] MEDS: INSULIN REGULAR 100 UNIT/ML 3 ML VIAL IV (10:52)
[2022-08-01 12:27] VITALS: BP 111/71; PULSE 91; RESP 12; TEMP 36.5; O2SAT 94
--- NOTE | 2022-08-01 12:27 | P.OP.EGD&C_ITS ---
Operative Date/Time/Diagnoses Date of procedure: 08/01/22 Time of procedure: 12:27 Pre-op diagnosis: Dysphagia and altered bowel habit with constipation and diarrhea Post-op diagnosis: same Procedure & Clinicians Study performed: EGD with biopsies and colonoscopy with biopsies Same procedure as scheduled: Yes Indications: Dysphagia and altered bowel habits with both constipation and diarrhea. Surgeon: Paxton Terry Procedure Notes SCOAP/Timeout: Done Procedure in detail: After the risks and benefits were explained, written and verbal informed consent was obtained. The patient was brought into the procedure room and placed into the left lateral decubitus position. Please see nurse buttermaker continuous churn notes for sedation details.. The scope was introduced into the mouth through the bite block and advanced under direct visualization to the 2nd portion of the duodenum. The scope was slowly withdrawn carefully examining the mucosa for any defects or lesions. Retroflexed views were accomplished in the stomach. The stomach was decompressed, the scope was then removed from the patient who tolerated the procedure well. The patient was then turned around a digital rectal examination accomplished. No significant pathology appreciated. The scope was introduced into the rectum and advanced to the cecum as identified by the ileocecal valve. The appendiceal orifice was fully obscured by solid stool matter and this could not be fully cleansed. As a consequence of all the stool in this area it was very difficult to manipulate the tip of the scope up into the terminal ileum for interrogation. I therefore slowly withdrew the scope to carefully examine the mucosa for any defects or lesions. Multiple direct views were made through the dentate line for exclusion of pathology. The colon was decompressed. The scope was removed from the patient who tolerated the procedure well. Adult colonoscope Bowel prep poor Scope withdrawal time: 9 minutes Sedation minutes: 36 Complications: none Impression: 1. Duodenum: This was visually normal from the bulb through to the 2nd portion. In light of the patient's reports of diarrhea, biopsies were taken at random from D2 for exclusion of sprue. 2. Stomach: The patient had scattered polyps in the antrum and body. Couple of these were sampled from the antrum and submitted together. A few polyps were sampled from the gastric body and submitted separately. No other significant mucosal pathology appreciated throughout including retroflexed views of the LES. 3. Esophagus: The squamocolumnar junction correlated with the top of the gastric folds. GE junction was at 39 cm from the incisors. No evidence of esophagitis. No evidence of Schatzki's ring nor stricturing. There did not appear to be any target were the of dilatation. The esophagus visually appeared normal but mid esophageal biopsies were acquired for exclusion of eosinophilic infiltration. 4. Colon: Suboptimal bowel prep as described above. Scattered diverticulosis was encountered in the left colon. There were many areas within the colon that could not be sufficiently cleansed for an adequate mucosal exam. Small polyps could have been overlooked in several of these locations. I did not appreciate any evidence of colitis. Random colon biopsies were taken for exclusion of microscopic colitis in light of the patient's symptoms. Prior to the scope arriving in the right colon the mucosa demonstrated some scattered areas consistent with cat scratch mucosa. Endoscopic diagnosis 1. Multiple gastric polyps 2. Otherwise visually unremarkable EGD 3. Poor bowel prep 4. Otherwise visually unremarkable colonoscopy to cecum Post-procedure Plan for aftercare: 1. Await histopathology. 2. The diarrhea alternating with constipation may be a function of intermittent overflow and I would therefore recommend a more aggressive bowel regimen moving forward. 3. Repeat colonoscopy for colon cancer screening within the next year with a double bowel prep.
[2022-08-01 12:32] VITALS: BP 106/69; PULSE 88; RESP 14; O2SAT 94
[2022-08-01 12:37] VITALS: BP 125/75; PULSE 90; RESP 15; O2SAT 95
[2022-08-01 12:42] VITALS: BP 119/77; PULSE 89; RESP 16; TEMP 36.4; O2SAT 96
[2022-08-01 12:56] VITALS: BP 125/78; PULSE 89; RESP 18; TEMP 36.3; O2SAT 96
== END 2022-08-01 13:00 | disposition home or self-care (01) ==
PROVIDERS: PCP Nurse Practitioner; Referring Provider Internal Medicine Gastroenterology; Visit Provider Internal Medicine Gastroenterology
PROC: 0DJD8ZZ Inspection of Lower Intestinal Tract, Via Natural or Artificial Opening Endoscopic (ICD-10-PCS; CPT 45378; principal; 2022-08-01 11:00)
PROC: 0DJ08ZZ Inspection of Upper Intestinal Tract, Via Natural or Artificial Opening Endoscopic (ICD-10-PCS; CPT 43235; 2022-08-01 11:00)
DX: K59.00 Constipation, unspecified (principal); R13.10 Dysphagia, unspecified; R19.7 Diarrhea, unspecified; K21.9 Gastro-esophageal reflux disease without esophagitis; Z20.822 Contact with and (suspected) exposure to COVID-19; E11.9 Type 2 diabetes mellitus without complications; I10 Essential (primary) hypertension; Z79.84 Long term (current) use of oral hypoglycemic drugs; K31.7 Polyp of stomach and duodenum; K31.9 Disease of stomach and duodenum, unspecified
CPT/HCPCS: 45380; 43239; 82962; 87635; C9803; J2250; J2405; J2704; J3010

== ENCOUNTER → 2022-10-24 16:43 | Outpatient (CLI) | payer OTHER, SELFPAY ==
[2021-10-01 12:17] VITALS: BMI 31.1
[2022-10-24 17:05] LABS: Appearance Urine UA CLOUDY; Bilirubin Urine UA NEGATIVE (NEGATIVE); Color Urine UA YELLOW; Glucose Urine UA 3+ g/dL (Negative); Ketones Urine UA NEGATIVE (NEGATIVE); Leukocyte Esterase Urine UA TRACE (NEGATIVE); Nitrite Urine UA POSITIVE (Negative); Occult Blood Urine UA NEGATIVE (Negative); Protein Urine UA NEGATIVE (Negative)
[2022-10-24 17:16] LABS: Bacteria Urine Many (>30); Culture Indicated Urine Specimen Cultured; RBC Urine None Seen (0-5/HPF); Squamous Epithelial Cell Urine 0-1 /HPF (0-5/HPF); Transitional Epi Cells Urine 0-1/HPF (0-5/HPF); WBC Urine 10-30/HPF (0-5/HPF)
== END ==
PROVIDERS: PCP Nurse Practitioner; Visit Provider Nurse Practitioner
DX: R30.0 Dysuria (principal)
CPT/HCPCS: 81003; 81015; 87077; 87086; 87186

== ENCOUNTER → 2022-10-25 07:00 | Outpatient (CLI) | payer OTHER, SELFPAY ==
[2021-10-01 12:17] VITALS: BMI 31.1
[2022-10-25 07:46] LABS: Hematocrit 36.7 % (36-46); Hemoglobin 12.4 g/dL (12.0-16.0); Mean Corpuscular HGB Conc 33.9 % (30-36); Mean Corpuscular Hemoglobin 27.2 PG (26-34); Mean Corpuscular Volume 80.2 fL (80-100); Platelet Count 258 X10^3/uL (150-400); Red Blood Cell Count 4.58 X10^6/uL (4.0-5.2); Red Cell Distribution Width 14.3 % (11.6-14.8); White Blood Cell Count 7.1 X10^3/uL (4.5-11.0)
[2022-10-25 08:00] LABS: Alanine Aminotransferase 30 IU/L (<35); Albumin 4.1 g/dL (3.5-5.0); Alkaline Phosphatase 99 U/L (38-126); Aspartate Aminotransferase 29 IU/L (14-36); Bilirubin Total 0.4 mg/dL (0.2-1.3); Blood Urea Nitrogen 17 mg/dL (7-17); Carbon Dioxide 26 mmol/L (22-32); Chloride 100 mmol/L (98-107); Cholesterol 200 mg/dL (140-199); Estimated Glomerular Filt Rate > 60 mL/min (>60); Globulin 4.2 g/dL (1.7-4.1); Glucose 349 mg/dL (70-100); HDL Cholesterol 55 mg/dL (40-60); HEMOLYSIS 26 (0-50); LDL Cholesterol Calculated 111 mg/dL (<100); Potassium 4.8 mmol/L (3.4-5.1); Sodium 137 mmol/L (137-145); Total Protein 8.3 g/dL (6.3-8.2); Triglycerides 170 mg/dL (35-150)
[2022-10-25 08:15] LABS: Free T3, Triiodothyronine Free 4.27 pg/mL (2.77-5.27)
[2022-10-25 08:29] LABS: Thyroid Stimulating Hormone 0.902 uIU/mL (0.47-4.68)
== END ==
PROVIDERS: PCP Nurse Practitioner; Referring Provider Nurse Practitioner; Visit Provider Nurse Practitioner
DX: Z00.00 Encounter for general adult medical examination without abnormal findings (principal); E11.65 Type 2 diabetes mellitus with hyperglycemia; E78.2 Mixed hyperlipidemia; G47.00 Insomnia, unspecified; I10 Essential (primary) hypertension; R79.89 Other specified abnormal findings of blood chemistry; Z79.899 Other long term (current) drug therapy
CPT/HCPCS: 36415; 80053; 80061; 83036; 84439; 84443; 84481; 85027

== ENCOUNTER 2022-10-26 19:21 | Emergency (ER) | payer OTHER, SELFPAY ==
[2021-10-01 12:17] VITALS: BMI 31.1
[2022-10-26 19:44] VITALS: BP 173/81; PULSE 84; RESP 20; TEMP 36.6; O2SAT 99; BMI 31.7
[2022-10-26] MEDS: SODIUM CHLORIDE 0.9% 1,000 ML 1000 ML IV ×2 (20:19→21:09)
[2022-10-26 20:23] LABS: HEMOLYSIS < 15 (0-50)
[2022-10-26 20:29] LABS: Alanine Aminotransferase 29 IU/L (<35); Alkaline Phosphatase 99 U/L (38-126); Aspartate Aminotransferase 25 IU/L (14-36); BUN Creatinine Ratio 23.9 (6-22); Bilirubin Total 0.4 mg/dL (0.2-1.3); Blood Urea Nitrogen 11 mg/dL (7-17); Calcium 8.8 mg/dL (8.4-10.2); Carbon Dioxide 26 mmol/L (22-32); Chloride 99 mmol/L (98-107); Estimated Glomerular Filt Rate > 60 mL/min (>60); Globulin 4.1 g/dL (1.7-4.1); Glucose 331 mg/dL (70-100); Lactate (Lactic Acid) 1.8 mmol/L (0.7-2.1); Magnesium 1.9 mg/dL (1.6-2.3); Phosphorous 4.2 mg/dL (2.5-4.5); Potassium 4.1 mmol/L (3.4-5.1); Sodium 135 mmol/L (137-145); Total Protein 8.1 g/dL (6.3-8.2)
[2022-10-26 20:40] LABS: Add Manual Diff / Slide Review NO; Basophils Absolute Auto 100 /uL (0-100); Eosinophils Absolute Auto 300 /uL (0-450); Eosinophils Percent Auto 3.6 % (2-4); Hematocrit 36.7 % (36-46); Hemoglobin 12.2 g/dL (12.0-16.0); Lymphocytes Absolute Auto 2300 /uL (1100-4500); Lymphocytes Percent Auto 32.6 % (25-40); Mean Corpuscular HGB Conc 33.3 % (30-36); Mean Corpuscular Hemoglobin 26.9 PG (26-34); Monocytes Absolute Auto 500 /uL (0-900); Monocytes Percent Auto 6.7 % (3-14); Neutrophils Absolute Auto 4000 /uL (1500-7000); Neutrophils Percent Auto 56.1 % (50-75); Platelet Count 255 X10^3/uL (150-400); Red Blood Cell Count 4.54 X10^6/uL (4.0-5.2); Red Cell Distribution Width 14.4 % (11.6-14.8); White Blood Cell Count 7.1 X10^3/uL (4.5-11.0)
[2022-10-26 20:41] LABS: Ketones (Beta-Hydroxybutyrate) 0.05 mmol/L (<0.27)
[2022-10-26 21:11] VITALS: BP 153/78; PULSE 77; RESP 16; O2SAT 100
--- NOTE | 2022-10-26 22:05 | ED.GENADULT ---
HPI - General Adult General Chief complaint: Diabetic Problem Stated complaint: blood sugar issues Time Seen by Provider: 10/26/22 20:42 Source: patient Mode of arrival: Ambulatory Limitations: no limitations History of Present Illness HPI narrative: Patient is a 52-year-old female. Has a history of diabetes. He is not on insulin but is on Trulicity and also metformin. He is also currently on antibiotics for treatment of a urinary tract infection that was diagnosed by her primary doctor and also on medication for thrush. Over the past couple days she has had issues with controlling her blood sugars. She is also felt foggy in her head with dizziness and nausea and vomiting. Patient states this has happened to her before when she is had a urinary tract infection where she needed IV fluids. She was sent by her primary provider for further evaluation. Related Data Home Medications Medication Instructions Recorded Confirmed cetirizine 10 mg capsule (Zyrtec) 10 mg PO DAILY 04/09/20 08/01/22 omega-3 fatty acids 1,000 mg 1,000 mg PO BID 01/01/21 05/12/22 capsule (Fish Oil Concentrate) Previous Rx's Medication Instructions Recorded hydroxyzine pamoate 25 mg capsule 25 mg PO TID #60 caps 12/27/19 Blood glucose meter #1 ea 05/28/20 Test strips #400 ea 05/28/20 lancets #400 ea 05/28/20 epinephrine 0.3 mg/0.3 mL 0.3 mg (0.3 mL) IM SEE 09/16/20 injection, auto-injector (EpiPen INSTRUCTIONS #1 pkg 2-Justin) doxepin 10 mg capsule 10 mg PO BEDTIME #180 caps 01/01/21 Massage Therapy #16 ea 03/04/21 triamcinolone acetonide 0.5 % 1 applic topical BID #15 grams 03/22/22 topical cream hydrochlorothiazide 25 mg tablet See Rx Instructions .Route 04/04/22 .COMPLEX #180 tabs albuterol sulfate 90 mcg/actuation See Rx Instructions .Route 04/25/22 aerosol inhaler .COMPLEX #18 grams omeprazole 40 mg capsule,delayed See Rx Instructions .Route 04/25/22 release .COMPLEX #180 caps propranolol 20 mg tablet See Rx Instructions .Route 04/25/22 .COMPLEX #180 tabs Dexcon 6G CGM #1 ea 06/27/22 pioglitazone 45 mg tablet 45 mg PO DAILY #90 tabs 06/27/22 lorazepam 1 mg tablet 1 mg PO Q6HP PRN anxiety #20 tabs 06/29/22 duloxetine 20 mg capsule,delayed 40 mg PO BID #360 caps 07/13/22 release Magic Mouthwash See Rx Instructions .Route 09/19/22 .COMPLEX #200 mL dulaglutide 1.5 mg/0.5 mL 1.5 mg (0.5 mL) SUBCUT QWEEK 09/20/22 subcutaneous pen injector E11.65 DMII uncontrolled #2 mL (Trulicity) Dexcon Sensors #12 ea 10/11/22 nitrofurantoin macrocrystal 100 mg 100 mg PO Q12H #14 caps 10/24/22 capsule Allergies Allergy/AdvReac Type Severity Reaction Status Date / Time bee venom protein (honey bee) Allergy Severe Anaphylaxis Verified 08/01/22 09:37 butalbital [BUTALBITAL] Allergy Mild FACIAL Verified 08/01/22 09:37 SWELLING oxycodone [OXYCODONE] Allergy Mild nausea, Verified 08/01/22 09:37 vomiting and chest tightness primidone [PRIMIDONE] Allergy Mild DIZZYNESS,A Verified 08/01/22 09:37 GITATION,CO NFUSION Sulfa (Sulfonamide Allergy Mild RASH Verified 08/01/22 09:37 Antibiotics) [SULFA (SULFONAMIDE ANTIBIOTICS)] Barbiturates [BARBITURATES] AdvReac Mild DIZZYNESS, Verified 08/01/22 09:37 AGITTION, CONFUSION Review of Systems Review of Systems ROS Unobtainable: All systems reviewed & are unremarkable except as noted in HPI and below Patient History Medical History Anxiety Asthma Atypical chest pain Chicken pox Chronic back pain Class 1 obesity (12/25/17) Depression Elevated LFTs Essential hypertension (12/20/17) GERD (gastroesophageal reflux disease) Headache History of tremor Hyperlipidemia Hypertension Hypoglycemic reaction to insulin in type 2 diabetes mellitus Infertility Insomnia Irregular menstrual cycle Lumbar strain Menorrhagia Migraine Palpitations PCOS (polycystic ovarian syndrome) Peripheral neuropathy due to metabolic disorder Piriformis syndrome of left side Seasonal allergies Shoulder pain Sleep apnea Tremor (12/20/17) Uncontrolled type 2 diabetes mellitus (2008) Vertigo Surgical History Anesthesia H/O elbow surgery (2010) H/O unilateral salpingectomy (2001) History of bladder surgery Status post surgery (05/18/12) Family History Brother Age: 53 Hyperlipidemia Diabetes mellitus Hypertension Father CAD (coronary artery disease) Dementia Anxiety and depression Hx of CABG History of heart disease Hypertension Hyperlipidemia Mental health problem Mother DM type 2 (diabetes mellitus, type 2) Hyperlipidemia Anxiety Hypertension Cancer Sister Age: 55 Mental health problem Social History marital status: household members: spouse and family lives independently: Yes housing: house pets and animals: Yes education level: college occupational status: employed Smoking Status: Never smoker alcohol intake: current substance use type: does not use Smoking Status: Never smoker alcohol intake frequency: holidays/special occasions only Substance Use Type: does not use Exam Initial Vital Signs Initial Vital Signs: Vital Signs Temperature 98 F 10/26/22 19:44 Pulse Rate 84 10/26/22 19:44 Respiratory Rate 20 10/26/22 19:44 Blood Pressure 173/81 H 10/26/22 19:44 Pulse Oximetry 99 10/26/22 19:44 Oxygen Delivery Method 10/26/22 19:44 HENMT Head: normal to inspection and normocephalic Resp Effort & Inspection: normal respiratory effort Cardio Rate: regular rate Neuro General: patient alert, patient awake and moves all extremities Extrem General: normal to inspection Course Orders Ordered: ED Orders 10/26/22 20:11 Complete Blood Count AUTO DIFF Stat Comprehensive Metabolic Panel Stat Ketones (Beta-Hydroxybutyrate) Stat Lactate (Lactic Acid) Stat Magnesium Stat PHOS [Phosphorous] Stat Discontinued Medications Sodium Chloride (Normal Saline 0.9%) 1,000 mls @ 1,000 mls/hr IV BOLUS ONE Stop: 10/26/22 21:17 Last Infusion: 10/26/22 21:01 Dose: 0 mls/hr Documented By: Admin: 10/26/22 20:19 Dose: 1,000 mls/hr Documented By: LEVI Sodium Chloride (Normal Saline 0.9%) 1,000 mls @ 1,000 mls/hr IV BOLUS ONE Stop: 10/26/22 22:07 Last Infusion: 10/26/22 21:48 Dose: 0 mls/hr Documented By: Admin: 10/26/22 21:09 Dose: 1,000 mls/hr Documented By: LEVI Vital Signs Vital signs: Vital Signs - 8 hr 10/26/22 21:11 Pulse Rate 77 Respiratory Rate 16 Blood Pressure 153/78 H Pulse Oximetry 100 Oxygen Delivery Method Room Air Medical Decision Making Medical Records Medical records reviewed: Yes I reviewed the patient's medical records. Lab Data Lab results reviewed: Yes I reviewed the patient's lab results. 10/26/22 20:11 10/26/22 20:11 Labs: Lab Results 10/26/22 10/26/22 10/26/22 Range/Units 20:11 20:11 20:11 WBC 7.1 (4.5-11.0) X10^3/uL RBC 4.54 (4.0-5.2) X10^6/uL Hgb 12.2 (12.0-16.0) g/dL Hct 36.7 (36-46) % MCV 81.0 (80-100) fL MCH 26.9 (26-34) PG MCHC 33.3 (30-36) % RDW 14.4 (11.6-14.8) % Plt Count 255 (150-400) X10^3/uL Neut % (Auto) 56.1 (50-75) % Lymph % (Auto) 32.6 (25-40) % Gilliam % (Auto) 6.7 (3-14) % Eos % (Auto) 3.6 (2-4) % Baso % (Auto) 1.0 (0-2) % Neut # (Auto) 4000 (4971-9321) /uL Lymph # (Auto) 2300 (3586-2660) /uL Gilliam # (Auto) 500 (0-900) /uL Eos # (Auto) 300 (0-450) /uL Baso # (Auto) 100 (0-100) /uL Sodium 135 L (137-145) mmol/L Potassium 4.1 (3.4-5.1) mmol/L Chloride 99 (98-107) mmol/L Carbon Dioxide 26 (22-32) mmol/L BUN 11 (7-17) mg/dL Creatinine 0.46 L (0.52-1.04) mg/dL Estimated GFR > 60 (>60) mL/min BUN/Creatinine Ratio 23.9 H (6-22) Glucose 331 H (70-100) mg/dL Lactate 1.8 (0.7-2.1) mmol/L Calcium 8.8 (8.4-10.2) mg/dL Phosphorus 4.2 (2.5-4.5) mg/dL Magnesium 1.9 (1.6-2.3) mg/dL Total Bilirubin 0.4 (0.2-1.3) mg/dL AST 25 (14-36) IU/L ALT 29 (<35) IU/L Alkaline Phosphatase 99 (38-126) U/L Total Protein 8.1 (6.3-8.2) g/dL Albumin 4.0 (3.5-5.0) g/dL Globulin 4.1 (1.7-4.1) g/dL Albumin/Globulin Ratio 1.0 (1.0-2.8) Ketones 0.05 (<0.27) mmol/L Point of Care Testing Glucose POC 288 Urine Dip Bedside Urine Glucose 1000 mg/dl Bedside Urine Bilirubin - Negative Bedside Urine Ketone - Negative Urine Specific [place] 1.015 Bedside Urine Occult Blood - Negative Bedside Urine pH 6 Bedside Urine Protein - Negative Bedside Urine Urobilinogen - Negative Bedside Urine Nitrite - Negative Bedside Urine Leukocytes - Negative Esterase Point of care testing: Point of Care Testing Glucose POC 288 Urine Dip Bedside Urine Glucose 1000 mg/dl Bedside Urine Bilirubin - Negative Bedside Urine Ketone - Negative Urine Specific [place] 1.015 Bedside Urine Occult Blood - Negative Bedside Urine pH 6 Bedside Urine Protein - Negative Bedside Urine Urobilinogen - Negative Bedside Urine Nitrite - Negative Bedside Urine Leukocytes - Negative Esterase MDM Narrative Medical decision making narrative: Patient is hyperglycemic but is not in DKA. Her urinalysis today does not show any signs of infection but she is currently on antibiotics. She is received 2 L fluid and states she feels better. No indication for further workup here in the emergency department. No indication for admission to the hospital. No indication for changing any of her medications. Will discharge patient home with return precautions. She expressed understanding and agreement. Discharge Plan Departure Patient Disposition: Home Clinical Impression: Diabetes, Hyperglycemia Activity Restrictions/Additional Instructions: I recommend that you continue to take all of your medications as directed. Be sure that your increasing your fluid intake. Keep your scheduled appointment that you tomorrow with your primary provider. Return to the emergency department for any new symptoms. Prescriptions: No Action hydroxyzine pamoate 25 mg capsule 25 mg PO TID Qty: 60 0RF Rx Instructions: Take 1-2 caps up to 3x/day as needed for anxiety (DME) Blood glucose meter Qty: 1 0RF Rx Instructions: Test blood 3x/day as directed (DME) lancets Qty: 400 3RF Rx Instructions: Test blood glucose 3x/day and as needed for hypoglycemia symptoms (DME) Test strips Qty: 400 3RF Rx Instructions: Test blood glucose 3x/day and as needed for symptoms of hypoglycemia epinephrine [EpiPen 2-Justin] 0.3 mg/0.3 mL auto-injector 0.3 mg IM SEE INSTRUCTIONS Qty: 1 2RF Rx Instructions: use for anaphylaxis, call 911, Dispense 2 pens or 2-Justin triamcinolone acetonide 0.5 % cream 1 applic topical BID Qty: 15 3RF hydrochlorothiazide 25 mg tablet See Rx Instructions .ROUTE .COMPLEX Qty: 180 2RF Dose Instruction: TAKE 2 TABLETS BY MOUTH EVERY DAY UNTIL WEIGHT DOWN TO GOAL WEIGHT OF 180; THEN 1 TABLET DAILY. Rx Instructions: TAKE 2 TABLETS BY MOUTH EVERY DAY UNTIL WEIGHT DOWN TO GOAL WEIGHT OF 180; THEN 1 TABLET DAILY. propranolol 20 mg tablet See Rx Instructions .ROUTE .COMPLEX Qty: 180 2RF Dose Instruction: TAKE 1 TABLET BY MOUTH TWICE DAILY FOR TREMORS AND ANXIETY Rx Instructions: TAKE 1 TABLET BY MOUTH TWICE DAILY FOR TREMORS AND ANXIETY albuterol sulfate 90 mcg/actuation HFA aerosol inhaler See Rx Instructions .ROUTE .COMPLEX Qty: 18 3RF Dose Instruction: INHALE 2 PUFFS EVERY 6 HOURS NEEDED FOR SHORTNESS OF BREATH OR WHEEZING Rx Instructions: INHALE 2 PUFFS EVERY 6 HOURS NEEDED FOR SHORTNESS OF BREATH OR WHEEZING omeprazole 40 mg capsule,delayed release(DR/EC) See Rx Instructions .ROUTE .COMPLEX Qty: 180 1RF Dose Instruction: TAKE 1 CAPSULE BY MOUTH TWICE DAILY Rx Instructions: TAKE 1 CAPSULE BY MOUTH TWICE DAILY pioglitazone 45 mg tablet 45 mg PO DAILY Qty: 90 3RF (DME) Dexcon 6G CGM See Rx Instructions .Route .MEDSUPPLY Qty: 1 0RF Rx Instructions: Dexcon lorazepam 1 mg tablet 1 mg PO Q6HP PRN (Reason: anxiety) Qty: 20 1RF duloxetine 20 mg capsule,delayed release(DR/EC) 40 mg PO BID Qty: 360 3RF Rx Instructions: Take 2 caps (40mg) twice daily Magic Mouthwash See Rx Instructions .ROUTE .COMPLEX Qty: 200 0RF Rx Instructions: Nystatin, Maalox, diphenhydramine, viscous lidocaine solution 5mL swish and swallow every 4-6 hours for 7 days; Trulicity 1.5 mg/0.5 mL pen injector 1.5 mg SUBCUT QWEEK Qty: 2 1RF (DME) Dexcon Sensors See Rx Instructions .Route .MEDSUPPLY Qty: 12 3RF Rx Instructions: CGM Sensors - change every 14 days PT is out, STAT FAX PA to nitrofurantoin macrocrystal 100 mg capsule 100 mg PO Q12H Qty: 14 0RF Rx Instructions: must administer with a meal/food doxepin 10 mg capsule 10 mg PO BEDTIME Qty: 180 3RF Rx Instructions: Take 1 cap at bedtime for sleep, may repeat x1 for insomnia omega-3 fatty acids [Fish Oil Concentrate] 1,000 mg capsule 1,000 mg PO BID Zyrtec 10 mg capsule 10 mg PO DAILY (DME) Massage Therapy See Rx Instructions .Route .MEDSUPPLY Qty: 16 0RF Rx Instructions: As directed Referrals: Tamanna Gordon ARNP [Primary Care Provider] - Stand Alone Forms: Patient Portal/API
== END 2022-10-26 22:16 | disposition home or self-care (01) ==
PROVIDERS: Emergency Provider Emergency Medicine; PCP Nurse Practitioner; Referring Provider Nurse Practitioner
DX: E11.65 Type 2 diabetes mellitus with hyperglycemia (principal)
CPT/HCPCS: 36415; 80053; 81003; 82009; 82962; 83605; 83735; 84100; 85025; 96360; 96361; 99284

== ENCOUNTER → 2022-12-05 16:18 | Outpatient (CLI) | payer OTHER, SELFPAY ==
[2022-10-31 15:20] VITALS: BMI 31.1
[2022-12-05 17:03] LABS: Add Manual Diff / Slide Review NO; Basophils Absolute Auto 100 /uL (0-100); Basophils Percent Auto 1.2 % (0-2); Eosinophils Absolute Auto 200 /uL (0-450); Eosinophils Percent Auto 2.2 % (2-4); Hematocrit 42.1 % (36-46); Hemoglobin 14.3 g/dL (12.0-16.0); Lymphocytes Absolute Auto 2700 /uL (1100-4500); Lymphocytes Percent Auto 27.3 % (25-40); Mean Corpuscular HGB Conc 33.9 % (30-36); Mean Corpuscular Hemoglobin 27.2 PG (26-34); Mean Corpuscular Volume 80.3 fL (80-100); Monocytes Absolute Auto 700 /uL (0-900); Monocytes Percent Auto 7.6 % (3-14); Neutrophils Absolute Auto 6000 /uL (1500-7000); Neutrophils Percent Auto 61.7 % (50-75); Platelet Count 362 X10^3/uL (150-400); Red Blood Cell Count 5.24 X10^6/uL (4.0-5.2); Red Cell Distribution Width 14.6 % (11.6-14.8); White Blood Cell Count 9.8 X10^3/uL (4.5-11.0)
[2022-12-05 18:11] LABS: Alanine Aminotransferase 33 IU/L (<35); Albumin 4.3 g/dL (3.5-5.0); Alkaline Phosphatase 113 U/L (38-126); Aspartate Aminotransferase 29 IU/L (14-36); BUN Creatinine Ratio 27.1 (6-22); Bilirubin Total 0.6 mg/dL (0.2-1.3); Blood Urea Nitrogen 19 mg/dL (7-17); Calcium 9.6 mg/dL (8.4-10.2); Carbon Dioxide 31 mmol/L (22-32); Chloride 90 mmol/L (98-107); Estimated Glomerular Filt Rate > 60 mL/min (>60); Globulin 4.5 g/dL (1.7-4.1); Glucose 214 mg/dL (70-100); HEMOLYSIS < 15 (0-50); Magnesium 2.4 mg/dL (1.6-2.3); Potassium 3.8 mmol/L (3.4-5.1); Sodium 133 mmol/L (137-145); Total Protein 8.8 g/dL (6.3-8.2)
[2022-12-05 18:34] LABS: Thyroid Stimulating Hormone 1.77 uIU/mL (0.47-4.68)
== END ==
PROVIDERS: PCP Nurse Practitioner; Referring Provider Nurse Practitioner; Visit Provider Nurse Practitioner
DX: Z01.812 Encounter for preprocedural laboratory examination (principal); H91.90 Unspecified hearing loss, unspecified ear; R42 Dizziness and giddiness; R53.1 Weakness; R55 Syncope and collapse
CPT/HCPCS: 36415; 80053; 83735; 84443; 85025

== ENCOUNTER → 2022-12-07 07:59 | Outpatient (CLI) | payer OTHER, SELFPAY ==
[2022-10-31 15:20] VITALS: BMI 31.1
--- NOTE | 2022-12-07 08:19 | DI.CT.S_ITS ---
PROCEDURE: CT HEAD/BRAIN WO/W CON INDICATIONS: dizziness, weakness, balance disturbance, presyncope, loss o TECHNIQUE: 4.5 mm thick angled axial sections acquired from the foramen magnum to the vertex before and after the administration of intravenous contrast, with coronal and sagittal reformats. For radiation dose reduction, the following was used: automated exposure control, adjustment of mA and/or kV according to patient size. COMPARISON: [facility], CT, HEAD WITHOUT CONTRAST, 03/12/2010, 8:10. FINDINGS: Image quality: Excellent. CSF Spaces: Basal cisterns are patent. No extra-axial fluid collections. Ventricles are normal in size and shape. Brain: No midline shift. No intracranial bleeds or masses. No abnormal intracranial enhancement. Morfin-white interface appears normal. Skull and face: Calvarium and visualized facial bones appear intact, without suspicious lesions. Hyperostosis frontalis interna. Sinuses: Visualized sinuses and mastoids are clear. IMPRESSION: No acute intracranial pathology. Hyperostosis frontalis interna. Dictated by: Anders Ricardo M.D. on 12/07/2022 at 8:26 Approved by: Anders Ricardo M.D. on 12/07/2022 at 8:29
== END ==
PROVIDERS: PCP Nurse Practitioner; Referring Provider Nurse Practitioner; Visit Provider Nurse Practitioner
DX: M85.2 Hyperostosis of skull (principal); R42 Dizziness and giddiness; R26.89 Other abnormalities of gait and mobility; R53.1 Weakness; R55 Syncope and collapse; H93.233 Hyperacusis, bilateral
CPT/HCPCS: 70470; Q9967

== ENCOUNTER → 2023-03-30 07:10 | Outpatient (CLI) | payer OTHER, SELFPAY ==
[2022-10-31 15:20] VITALS: BMI 31.1
[2023-03-30 08:29] LABS: Alanine Aminotransferase 48 IU/L (<35); Albumin 4.2 g/dL (3.5-5.0); Albumin Globulin Ratio 1.1 (1.0-2.8); Alkaline Phosphatase 120 U/L (38-126); Aspartate Aminotransferase 38 IU/L (14-36); BUN Creatinine Ratio 19.6 (6-22); Bilirubin Total 0.5 mg/dL (0.2-1.3); Blood Urea Nitrogen 11 mg/dL (7-17); Calcium 9.6 mg/dL (8.4-10.2); Carbon Dioxide 34 mmol/L (22-32); Chloride 94 mmol/L (98-107); Cholesterol 208 mg/dL (140-199); Estimated Glomerular Filt Rate > 60 mL/min (>60); Globulin 3.8 g/dL (1.7-4.1); Glucose 256 mg/dL (70-100); HDL Cholesterol 53 mg/dL (40-60); HEMOLYSIS < 15 (0-50); LDL Cholesterol Calculated 119 mg/dL (<100); Potassium 4.1 mmol/L (3.4-5.1); Sodium 135 mmol/L (137-145); Triglycerides 179 mg/dL (35-150)
[2023-03-31 06:33] LABS: Labcorp Hemoglobin (Hb) A1c 10.5 % (4.8-5.6)
== END ==
PROVIDERS: PCP Nurse Practitioner; Referring Provider Nurse Practitioner; Visit Provider Nurse Practitioner
DX: E11.65 Type 2 diabetes mellitus with hyperglycemia (principal); E78.5 Hyperlipidemia, unspecified; E87.0 Hyperosmolality and hypernatremia; R73.09 Other abnormal glucose; I10 Essential (primary) hypertension
CPT/HCPCS: 36415; 80053; 80061; 83036

== ENCOUNTER 2023-05-29 20:19 | Emergency (ER) | payer OTHER, SELFPAY ==
[2022-10-31 15:20] VITALS: BMI 31.1
[2023-05-29] VITALS (9 sets, daily range): BP systolic 119–158; BP diastolic 57–84; PULSE 68–78; RESP 9–17; TEMP 36.4; O2SAT 97–100; BMI 31.0
[2023-05-29 21:02] LABS: Add Manual Diff / Slide Review NO; Basophils Absolute Auto 100 /uL (0-100); Eosinophils Absolute Auto 300 /uL (0-450); Eosinophils Percent Auto 3.5 % (2-4); Hematocrit 41.9 % (36-46); Hemoglobin 14.1 g/dL (12.0-16.0); Lymphocytes Absolute Auto 2600 /uL (1100-4500); Lymphocytes Percent Auto 28.2 % (25-40); Mean Corpuscular HGB Conc 33.6 % (30-36); Mean Corpuscular Hemoglobin 26.9 PG (26-34); Mean Corpuscular Volume 80.1 fL (80-100); Monocytes Absolute Auto 600 /uL (0-900); Monocytes Percent Auto 6.1 % (3-14); Neutrophils Absolute Auto 5600 /uL (1500-7000); Neutrophils Percent Auto 61.2 % (50-75); Platelet Count 290 X10^3/uL (150-400); Red Blood Cell Count 5.23 X10^6/uL (4.0-5.2); Red Cell Distribution Width 14.5 % (11.6-14.8); White Blood Cell Count 9.2 X10^3/uL (4.5-11.0)
[2023-05-29 21:03] LABS: Alanine Aminotransferase 69 IU/L (<35); Albumin 4.2 g/dL (3.5-5.0); Albumin Globulin Ratio 0.9 (1.0-2.8); Alkaline Phosphatase 147 U/L (38-126); Aspartate Aminotransferase 51 IU/L (14-36); Bilirubin Total 0.5 mg/dL (0.2-1.3); Blood Urea Nitrogen 14 mg/dL (7-17); Calcium 10.1 mg/dL (8.4-10.2); Carbon Dioxide 27 mmol/L (22-32); Chloride 92 mmol/L (98-107); Estimated Glomerular Filt Rate > 60 mL/min (>60); Globulin 4.7 g/dL (1.7-4.1); Glucose 464 mg/dL (70-100); HEMOLYSIS 29 (0-50); Lipase 126 U/L (23-300); Potassium 3.8 mmol/L (3.4-5.1); Sodium 131 mmol/L (137-145); Total Protein 8.9 g/dL (6.3-8.2)
[2023-05-29 21:06] LABS: Ketones (Beta-Hydroxybutyrate) 0.08 mmol/L (<0.27)
[2023-05-29] MEDS: SODIUM CHLORIDE 0.9% 1,000 ML 1000 ML IV (21:44)
[2023-05-29 23:00] LABS: pH VBG 7.38 (7.33-7.43)
[2023-05-29 23:01] LABS: Fractionated Inspired Oxygen 21; HCO3 VBG 28 mmol/L (24-28); Oxygen Saturation VBG 52 % (70-75); PCO2 VBG 46.3 mmHg (45-50); PO2 VBG 28 mmHg (35-45); Total CO2 VBG 29 mmol/L (24-29)
[2023-05-30] VITALS: PULSE 68; RESP 25; O2SAT 98
[2023-05-30 00:30] VITALS: PULSE 70; RESP 19; O2SAT 98
[2023-05-30 01:00] VITALS: BP 128/70; PULSE 73; RESP 18; O2SAT 99
--- NOTE | 2023-05-30 01:08 | ED.GENADULT ---
HPI - General Adult General Chief complaint: Diabetic Problem Stated complaint: Thinks high BG Time Seen by Provider: 05/29/23 21:27 Source: patient, RN notes reviewed and old records reviewed Mode of arrival: Ambulatory Limitations: no limitations History of Present Illness HPI narrative: 52-year-old female with history of diabetes on insulin as well as oral medications, hypertension, rheumatoid arthritis with complaint of feeling foggy and lightheaded this morning. Patient states no syncope but felt like she might pass out. No chest pain or shortness of breath, she had some nausea and vomiting this morning she states no abdominal back or flank pain, she had some increased urination but no dysuria. No incontinence. No black or bloody stools or diarrhea. No new swelling in extremities. Patient notes she has not been able to test her glucose for the past 2 weeks secondary to her Dexcon 6 testing supplies are currently unavailable. There is back order. Patient states it is not have financial issue or that she needs a refill. Patient has been using her medications regularly but has not been able to monitor her glucose. Patient states she has had a prior episode of hyperosmolar state so presented when she started feeling bad. She states this did not feel quite as bad a stat. Related Data Home Medications Medication Instructions Recorded Confirmed cetirizine 10 mg capsule (Zyrtec) 10 mg PO DAILY 04/09/20 12/07/22 hydroxychloroquine 100 mg tablet 100 mg PO BID 02/06/23 Previous Rx's Medication Instructions Recorded albuterol sulfate 90 mcg/actuation See Rx Instructions .Route 04/25/22 aerosol inhaler .COMPLEX #18 grams omeprazole 40 mg capsule,delayed See Rx Instructions .Route 04/25/22 release .COMPLEX #180 caps pioglitazone 45 mg tablet 45 mg PO DAILY #90 tabs 06/27/22 lorazepam 1 mg tablet 1 mg PO Q6HP PRN anxiety #20 tabs 06/29/22 duloxetine 20 mg capsule,delayed 40 mg PO BID #360 caps 07/13/22 release empagliflozin 10 mg tablet 10 mg PO QAM #90 tabs 10/27/22 (Jardiance) insulin glargine 100 unit/mL (3 10 unit (0.1 mL) SUBCUT QPM #15 mL 10/27/22 mL) subcutaneous pen (Basaglar KwikPen U-100 Insulin) triamcinolone acetonide 0.5 % 1 applic topical BID #15 grams 10/27/22 topical cream Insulin Pen [place] #100 ea 11/01/22 epinephrine 0.3 mg/0.3 mL 0.3 mg (0.3 mL) IM SEE 12/26/22 injection, auto-injector (EpiPen INSTRUCTIONS #1 pkg 2-Justin) blood-glucose transmitter (Dexcom #1 ea 12/27/22 G6 Transmitter device) dulaglutide 4.5 mg/0.5 mL 4.5 mg (0.5 mL) SUBCUT QWEEK #2 mL 12/27/22 subcutaneous pen injector (Trulicity) Dexcon Sensors #12 ea 12/29/22 clobetasol 0.05 % topical ointment 1 applic topical QAM AND QPM #15 01/04/23 grams valacyclovir 1 gram tablet 1,000 mg PO Q8H 10 days #30 tabs 02/06/23 hydrochlorothiazide 25 mg tablet See Rx Instructions .Route 02/16/23 .COMPLEX #180 tabs propranolol 20 mg tablet See Rx Instructions .Route 03/20/23 .COMPLEX #180 tabs Allergies Allergy/AdvReac Type Severity Reaction Status Date / Time bee venom protein (honey bee) Allergy Severe Anaphylaxis Verified 05/29/23 20:28 butalbital [BUTALBITAL] Allergy Mild FACIAL Verified 05/29/23 20:28 SWELLING oxycodone [OXYCODONE] Allergy Mild nausea, Verified 05/29/23 20:28 vomiting and chest tightness primidone [PRIMIDONE] Allergy Mild DIZZYNESS,A Verified 05/29/23 20:28 GITATION,CO NFUSION Sulfa (Sulfonamide Allergy Mild RASH Verified 05/29/23 20:28 Antibiotics) [SULFA (SULFONAMIDE ANTIBIOTICS)] metformin AdvReac Intermediate diarrhea Verified 05/29/23 20:28 Barbiturates [BARBITURATES] AdvReac Mild DIZZYNESS, Verified 05/29/23 20:28 AGITTION, CONFUSION Review of Systems Review of Systems ROS Unobtainable: All systems reviewed & are unremarkable except as noted in HPI and below Patient History Medical History Anxiety Asthma Atypical chest pain Chicken pox Chronic back pain Class 1 obesity (12/25/17) Depression Elevated LFTs Essential hypertension (12/20/17) GERD (gastroesophageal reflux disease) Headache Hemoglobin A1C greater than 9%, indicating poor diabetic control History of tremor Hyperlipidemia Hypertension Hypoglycemic reaction to insulin in type 2 diabetes mellitus Infertility Insomnia Irregular menstrual cycle Lumbar strain Menorrhagia Migraine Palpitations PCOS (polycystic ovarian syndrome) Peripheral neuropathy due to metabolic disorder Piriformis syndrome of left side Rheumatoid arthritis Seasonal allergies Shoulder pain Sleep apnea Tremor (12/20/17) Type 2 diabetes mellitus with history of hyperosmolarity Uncontrolled type 2 diabetes mellitus (2008) Vertigo Surgical History Anesthesia H/O elbow surgery (2010) H/O unilateral salpingectomy (2001) History of bladder surgery Status post surgery (05/18/12) Family History Brother Age: 53 Hyperlipidemia Diabetes mellitus Hypertension Father CAD (coronary artery disease) Dementia Anxiety and depression Hx of CABG History of heart disease Hypertension Hyperlipidemia Mental health problem Mother DM type 2 (diabetes mellitus, type 2) Hyperlipidemia Anxiety Hypertension Cancer Sister Age: 55 Mental health problem Social History marital status: household members: spouse and family lives independently: Yes housing: house pets and animals: Yes education level: college occupational status: employed Smoking Status: Never smoker alcohol intake: current substance use type: does not use Smoking Status: Never smoker alcohol intake frequency: holidays/special occasions only Substance Use Type: does not use Exam Narrative Exam Narrative: GENERAL: Alert and oriented x three, well-appearing female in mild distress. Patient is sitting up in bed drinking water during evaluation. HEENT: Head normocephalic, atraumatic, EOMI, pupils reactive, face symmetric, moist mucous membranes NECK: Supple, full range of motion CARDIOVASCULAR: Regular rate and rhythm without murmurs, rubs or gallops. RESPIRATORY: Breath sounds equal bilaterally, no wheezes rales or rhonchi. ABDOMEN: Soft, nontender. Nontender. Normoactive bowel sounds all 4 quadrants. No guarding or rebound, rigidity, no mass : No CVA tenderness EXTREMITIES: Normal range of motion, no clubbing or edema. Neurovascularly intact NEUROLOGICAL: Cranial nerves II through XII grossly intact. Moving all extremities SKIN: Warm, dry, no petechiae, no rashes or lesions. Initial Vital Signs Initial Vital Signs: Vital Signs Temperature 97.6 F 05/29/23 20:22 Pulse Rate 78 05/29/23 20:22 Respiratory Rate 16 05/29/23 20:22 Blood Pressure 158/84 H 05/29/23 20:22 Pulse Oximetry 100 05/29/23 20:22 Oxygen Delivery Method Room Air 05/29/23 20:22 Course Orders Ordered: ED Orders 05/29/23 21:27 VBG [Venous Blood Gas] Stat Discontinued Medications Sodium Chloride (Normal Saline 0.9%) 1,000 mls @ 1,000 mls/hr IV BOLUS PRN PRN Reason: Fluid replacement Sodium Chloride (Normal Saline 0.9%) 1,000 mls @ 1,000 mls/hr IV BOLUS ONE Stop: 05/29/23 22:35 Last Infusion: 05/29/23 22:31 Dose: 0 mls/hr Documented By: Admin: 05/29/23 21:44 Dose: 1,000 mls/hr Documented By: CARLENE Ondansetron HCl (Ondansetron 4 Mg Odt) 4 mg PO NOW PRN PRN Reason: Nausea And Vomiting Ondansetron HCl (Ondansetron 4 Mg/2 Ml Inj) 4 mg IV NOW PRN PRN Reason: Nausea And Vomiting Vital Signs Vital signs: Vital Signs - 8 hr 05/29/23 22:30 05/29/23 22:30 05/29/23 23:00 Temperature Pulse Rate 68 Respiratory Rate 14 Blood Pressure 135/68 122/64 Pulse Oximetry 98 05/29/23 23:00 05/29/23 23:30 05/29/23 23:30 Temperature Pulse Rate 68 69 Respiratory Rate 14 17 Blood Pressure 137/67 Pulse Oximetry 98 97 05/30/23 00:00 05/30/23 00:30 05/30/23 01:00 Temperature Pulse Rate 68 70 73 Respiratory Rate 25 H 19 18 Blood Pressure 128/70 Pulse Oximetry 98 98 99 05/30/23 01:35 Temperature 98.1 F Pulse Rate Respiratory Rate Blood Pressure Pulse Oximetry Medical Decision Making Lab Data 05/29/23 20:10 05/29/23 20:10 Labs: Lab Results 09/25/23 09/25/23 09/25/23 Range/Units 20:10 20:10 21:27 WBC 9.2 (4.5-11.0) X10^3/uL RBC 5.23 H (4.0-5.2) X10^6/uL Hgb 14.1 (12.0-16.0) g/dL Hct 41.9 (36-46) % MCV 80.1 (80-100) fL MCH 26.9 (26-34) PG MCHC 33.6 (30-36) % RDW 14.5 (11.6-14.8) % Plt Count 290 (150-400) X10^3/uL Neut % (Auto) 61.2 (50-75) % Lymph % (Auto) 28.2 (25-40) % [place] % (Auto) 6.1 (3-14) % Eos % (Auto) 3.5 (2-4) % Baso % (Auto) 1.0 (0-2) % Neut # (Auto) 5600 (0724-4327) /uL Lymph # (Auto) 2600 (5500-2644) /uL [place] # (Auto) 600 (0-900) /uL Eos # (Auto) 300 (0-450) /uL Baso # (Auto) 100 (0-100) /uL VBG pH 7.38 (7.33-7.43) VBG pCO2 46.3 (45-50) mmHg VBG pO2 28 L (35-45) mmHg VBG HCO3 28 (24-28) mmol/L VBG Total CO2 29 (24-29) mmol/L VBG O2 Saturation 52 L (70-75) % VBG Base Excess 3.0 (0-4) mmol/L FiO2 21 Sodium 131 L (137-145) mmol/L Potassium 3.8 (3.4-5.1) mmol/L Chloride 92 L (98-107) mmol/L Carbon Dioxide 27 (22-32) mmol/L BUN 14 (7-17) mg/dL Creatinine 0.61 (0.52-1.04) mg/dL Estimated GFR > 60 (>60) mL/min BUN/Creatinine Ratio 23.0 H (6-22) Glucose 464 H (70-100) mg/dL Calcium 10.1 (8.4-10.2) mg/dL Total Bilirubin 0.5 (0.2-1.3) mg/dL AST 51 H (14-36) IU/L ALT 69 H (<35) IU/L Alkaline Phosphatase 147 H (38-126) U/L Total Protein 8.9 H (6.3-8.2) g/dL Albumin 4.2 (3.5-5.0) g/dL Globulin 4.7 H (1.7-4.1) g/dL Albumin/Globulin Ratio 0.9 L (1.0-2.8) Lipase 126 (23-300) U/L Ketones 0.08 (<0.27) mmol/L Point of Care Testing Glucose POC 275 Urine Dip Bedside Urine Glucose Negative Bedside Urine Bilirubin - Negative Bedside Urine Ketone - Negative Urine Specific [place] 1.010 Bedside Urine Occult Blood - Negative Bedside Urine pH 6.0 Bedside Urine Protein - Negative Bedside Urine Urobilinogen - Negative Bedside Urine Nitrite - Negative Bedside Urine Leukocytes - Negative Esterase Point of care testing: Point of Care Testing Glucose POC 275 Urine Dip Bedside Urine Glucose Negative Bedside Urine Bilirubin - Negative Bedside Urine Ketone - Negative Urine Specific [place] 1.010 Bedside Urine Occult Blood - Negative Bedside Urine pH 6.0 Bedside Urine Protein - Negative Bedside Urine Urobilinogen - Negative Bedside Urine Nitrite - Negative Bedside Urine Leukocytes - Negative Esterase ECG Data Attestation: I personally reviewed and interpreted this ECG as follows: Prior ECG tracings: not available for review Interpretation: Sinus rhythm rate of 73 P 174, QRS of [address] elevation or depression. No prior. MDM Narrative Medical decision making narrative: This is a 52-year-old female with known diabetes, on insulin as well as oral medication, her monitor supplies have not been available for the last 1-2 weeks she is not been able to regularly check her glucose she has marge on her phone that she uses to keep her updated. She has been using her medications but not been able to monitor her numbers. She states that it is back order issue no financial issues or need for refills. Today her glucose was 464 initially on serum, improved to 275 after fluids, CBC is overall appropriate, VBG shows a pH of 7.38, sodium is 131 on corrected, renal function electrolytes otherwise appropriate AST and ALT are slightly elevated. Anion gap is 11.5, urine does not show any signs of infection no ketones. Patient is feeling much improved as her glucoses improved here in the department. She is drinking water and would like to return home. She states that she will purchase a glucometer and testing strips [id number]. Offered prescription as insurance may cover but she defers and states that she can buy them herself. Discharge Plan Departure Patient Disposition: Home Clinical Impression: Hyperglycemia Activity Restrictions/Additional Instructions: Please follow up for recheck as needed. I would recommend getting a regular glucometer and test strips until your usual is available again. Please return for recurrent symptoms, fevers, severe headaches, sudden vision changes, new chest pain or shortness of breath, abdominal pain, persistent vomiting, increasing large amounts of urination, swelling of extremities or other new or concerning changes. Prescriptions: No Action albuterol sulfate 90 mcg/actuation HFA aerosol inhaler See Rx Instructions .ROUTE .COMPLEX Qty: 18 3RF Dose Instruction: INHALE 2 PUFFS EVERY 6 HOURS NEEDED FOR SHORTNESS OF BREATH OR WHEEZING Rx Instructions: INHALE 2 PUFFS EVERY 6 HOURS NEEDED FOR SHORTNESS OF BREATH OR WHEEZING omeprazole 40 mg capsule,delayed release(DR/EC) See Rx Instructions .ROUTE .COMPLEX Qty: 180 1RF Dose Instruction: TAKE 1 CAPSULE BY MOUTH TWICE DAILY Rx Instructions: TAKE 1 CAPSULE BY MOUTH TWICE DAILY pioglitazone 45 mg tablet 45 mg PO DAILY Qty: 90 3RF lorazepam 1 mg tablet 1 mg PO Q6HP PRN (Reason: anxiety) Qty: 20 1RF duloxetine 20 mg capsule,delayed release(DR/EC) 40 mg PO BID Qty: 360 3RF Rx Instructions: Take 2 caps (40mg) twice daily (DME) Insulin Pen [place] See Rx Instructions .Route .MEDSUPPLY Qty: 100 3RF Rx Instructions: Inject insulin at bedtime daily epinephrine [EpiPen 2-Justin] 0.3 mg/0.3 mL auto-injector 0.3 mg IM SEE INSTRUCTIONS Qty: 1 2RF Rx Instructions: use for anaphylaxis, call 911, Dispense 2 pens or 2-Justin Trulicity 4.5 mg/0.5 mL pen injector 4.5 mg SUBCUT QWEEK Qty: 2 5RF (DME) Dexcom G6 Transmitter Device See Rx Instructions .ROUTE .COMPLEX Qty: 1 3RF Dose Instruction: USE DIRECTED Rx Instructions: USE DIRECTED (DME) Dexcon Sensors See Rx Instructions .Route .MEDSUPPLY Qty: 12 3RF Rx Instructions: CGM Sensors - change every 14 days PT is out, STAT FAX PA to hydroxychloroquine 100 mg tablet 100 mg PO BID valacyclovir 1 gram tablet 1,000 mg PO Q8H 10 Days Qty: 30 2RF hydrochlorothiazide 25 mg tablet See Rx Instructions .ROUTE .COMPLEX Qty: 180 1RF Dose Instruction: TAKE 2 TABLETS BY MOUTH EVERY DAY UNTIL WEIGHT DOWN TO GOAL WEIGHT OF 180; THEN 1 TABLET DAILY. Rx Instructions: TAKE 2 TABLETS BY MOUTH EVERY DAY UNTIL WEIGHT DOWN TO GOAL WEIGHT OF 180; THEN 1 TABLET DAILY. propranolol 20 mg tablet See Rx Instructions .ROUTE .COMPLEX Qty: 180 2RF Dose Instruction: TAKE 1 TABLET BY MOUTH TWICE DAILY FOR TREMORS AND ANXIETY Rx Instructions: TAKE 1 TABLET BY MOUTH TWICE DAILY FOR TREMORS AND ANXIETY clobetasol 0.05 % ointment 1 applic topical QAM AND QPM Qty: 15 2RF Rx Instructions: Apply to ear canals twice daily x2 weeks Zyrtec 10 mg capsule 10 mg PO DAILY triamcinolone acetonide 0.5 % cream 1 applic topical BID Qty: 15 3RF insulin glargine [Basaglar KwikPen U-100 Insulin] 100 unit/mL (3 mL) insulin pen 10 unit SUBCUT QPM Qty: 15 3RF Rx Instructions: Inject 10u SQ each evening prior to bedtime Jardiance 10 mg tablet 10 mg PO QAM Qty: 90 3RF Referrals: Tamanna Gordon ARNP [Primary Care Provider] - Stand Alone Forms: Patient Portal/API
[2023-05-30 01:35] VITALS: TEMP 36.7
== END 2023-05-30 01:37 | disposition home or self-care (01) ==
PROVIDERS: Emergency Provider Emergency Medicine; PCP Nurse Practitioner
DX: E11.65 Type 2 diabetes mellitus with hyperglycemia (principal); R10.9 Unspecified abdominal pain
CPT/HCPCS: 36415; 80053; 81003; 82009; 82805; 82962; 83690; 85025; 93005; 99284

== ENCOUNTER → 2023-06-14 09:24 | Outpatient (CLI) | payer OTHER, SELFPAY ==
[2022-10-31 15:20] VITALS: BMI 31.1
[2023-06-14 10:18] LABS: Hematocrit 41.4 % (36-46); Hemoglobin 14.1 g/dL (12.0-16.0); Mean Corpuscular HGB Conc 34.1 % (30-36); Mean Corpuscular Hemoglobin 26.9 PG (26-34); Mean Corpuscular Volume 78.8 fL (80-100); Platelet Count 275 X10^3/uL (150-400); Red Blood Cell Count 5.25 X10^6/uL (4.0-5.2); Red Cell Distribution Width 14.3 % (11.6-14.8); White Blood Cell Count 8.8 X10^3/uL (4.5-11.0)
[2023-06-14 10:32] LABS: Alanine Aminotransferase 53 IU/L (<35); Albumin 4.2 g/dL (3.5-5.0); Alkaline Phosphatase 132 U/L (38-126); Amylase 73 U/L (30-110); Aspartate Aminotransferase 43 IU/L (14-36); BUN Creatinine Ratio 28.8 (6-22); Bilirubin Total 0.5 mg/dL (0.2-1.3); Blood Urea Nitrogen 15 mg/dL (7-17); Carbon Dioxide 31 mmol/L (22-32); Chloride 94 mmol/L (98-107); Estimated Glomerular Filt Rate > 60 mL/min (>60); Globulin 4.2 g/dL (1.7-4.1); Glucose 340 mg/dL (70-100); HEMOLYSIS < 15 (0-50); Lipase 213 U/L (23-300); Potassium 3.7 mmol/L (3.4-5.1); Sodium 135 mmol/L (137-145); Total Protein 8.4 g/dL (6.3-8.2)
== END ==
PROVIDERS: PCP Nurse Practitioner; Referring Provider Internal Medicine; Visit Provider Internal Medicine
DX: K52.9 Noninfective gastroenteritis and colitis, unspecified (principal); R10.9 Unspecified abdominal pain
CPT/HCPCS: 36415; 80053; 82150; 83690; 85027

== ENCOUNTER → 2023-06-27 08:01 | Outpatient (CLI) | payer OTHER, SELFPAY ==
[2022-10-31 15:20] VITALS: BMI 31.1
[2023-06-27 14:28] LABS: Influenza A - CEPHEID Flu A NEGATIVE (NEGATIVE); Influenza B - CEPHEID Flu B NEGATIVE (NEGATIVE); Respiratory Syncytial Virus Negative (Negative)
[2023-06-27 14:33] LABS: COVID-19 CEPHEID 4-PLEX PCR Negative (Negative)
== END ==
PROVIDERS: PCP Nurse Practitioner; Visit Provider Family Medicine
DX: R05.9 Cough, unspecified (principal); R49.1 Aphonia
CPT/HCPCS: 0241U

== ENCOUNTER → 2023-08-02 10:30 | Outpatient (CLI) | payer OTHER, SELFPAY ==
[2022-10-31 15:20] VITALS: BMI 31.1
== END ==
PROVIDERS: PCP Nurse Practitioner; Referring Provider Family Medicine; Visit Provider Family Medicine
DX: Z23 Encounter for immunization (principal)
CPT/HCPCS: 90471; 90686

== ENCOUNTER → 2023-09-25 15:57 | Outpatient (CLI) | payer OTHER, SELFPAY ==
[2022-10-31 15:20] VITALS: BMI 31.1
== END ==
PROVIDERS: PCP Nurse Practitioner; Visit Provider Nurse Practitioner
DX: N89.8 Other specified noninflammatory disorders of vagina (principal)
CPT/HCPCS: 87070; 87205; 87255

== ENCOUNTER → 2023-10-03 07:39 | Outpatient (CLI) | payer OTHER, SELFPAY ==
[2022-10-31 15:20] VITALS: BMI 31.1
--- NOTE | 2023-10-03 07:40 | DI.US.S_ITS ---
PROCEDURE: US PELVIC COMPLETE INDICATIONS: vaginal pain, hx mesh to bladder, pain with sex TECHNIQUE: Real-time scanning was performed of the pelvic organs, with image documentation. Additional endovaginal scanning was necessary due to incomplete visualization of the adnexal and endometrial structures by transabdominal scanning. COMPARISON: [facility], , US PELVIC COMPLETE, 09/10/2018, 9:28. FINDINGS: Uterus: Uterus is anteverted and normal in size at 5.5 x 4.3 x 3.4 cm. The myometrium is homogeneous. The endometrium measures 8 mm combined thickness. Limited exam, grossly within normal limits. Ovaries: Ovaries are not seen. Other: No pathologic free abdominal or pelvic fluid. Bladder mesh appears to be penetrating into the anterior vaginal wall approximately 1.5 cm from the vaginal opening. IMPRESSION: Bladder mesh appears to be penetrating into the anterior vaginal wall approximately 1.5 cm of the vaginal opening. Consider direct visualization. The endometrium is at the upper limits of normal for postmenopausal female measuring 8 mm. Ovaries are not seen. We strive to produce accurate, complete, and clear reports of imaging services. To assist us in improving patient care, this report was composed using standard report templates and voice recognition software. Therefore, it may contain abnormal punctuation, insertions and/or omissions. Occasional wrong-word or sound-alike substitutions may occur. Though we review the report and make efforts to correct it, we do recommend that the report be read carefully in proper context to recognize any text inaccuracies. Dictated by: Juan Antonio Burks M.D. on 10/03/2023 at 10:19 Approved by: Juan Antonio Burks M.D. on 10/03/2023 at 10:22
== END ==
LOC: US 07:40
PROVIDERS: PCP Nurse Practitioner; Referring Provider Nurse Practitioner; Visit Provider Nurse Practitioner
DX: R10.2 Pelvic and perineal pain (principal)
CPT/HCPCS: 76830; 76856

== ENCOUNTER 2023-11-03 09:51 | Day surgery (SDC) | payer OTHER, SELFPAY ==
[2022-10-31 15:20] VITALS: BMI 31.1
[2023-11-03 10:20] VITALS: BP 154/87; PULSE 92; RESP 16; TEMP 36.5; O2SAT 98; BMI 30.2
[2023-11-03] MEDS: LACTATED RINGERS 1,000 ML 42 ML IV ×2 (10:29→12:43)
--- NOTE | 2023-11-03 12:03 | PM.PREOP ---
Pre-operative Note COVID-19 COVID-19 status: Not tested Interval Note History & Physical reviewed/Exam performed by Physician: Yes Changes to H&P: No
[2023-11-03] MEDS: CEFAZOLIN 2 GM/100 ML PREMIX 100 ML IV (12:34)
[2023-11-03] MEDS: BUPIVACAINE 0.5% (PF) 30 ML, EPINEPHrine 0.15 MG INJ (12:44)
--- NOTE | 2023-11-03 12:45 | SUR.OPER ---
Lithotomy on padded OR bed, head on pillow, arms secured on padded arm boards at <90 degrees abduction. Legs secured in padded yellow fins stirrups.
--- NOTE | 2023-11-03 13:17 | P.OP_ITS ---
Operative Date/Time/Diagnoses Date of procedure: 11/03/23 Time of procedure: 12:30 Pre-op diagnosis: Mid-urethral sling complication Post-op diagnosis: same Procedure & Clinicians Procedure: Procedures Operation Date: 11/03/23 11:15 Actual Procedure Side Surgeon p Revision of mid Urethral Sling Zohaib Parra MD Indications: Valery is a 53-year-old G1, LMP 2-3 years ago, who presents with a 1 year history of progressively painful area at the vaginal introitus at the site of a mid urethral sling was placed 2007. Pain has become so significant that she and her can no longer have intercourse but her partner does not feel the mesh in the vaginal canal. Patient denies stress urinary incontinence symptoms. Patient is not using any postmenopausal HRT. Surgeon: Zohaib Parra Anesthesia Type: General Operative Notes Findings: TVT mesh is extremely distal with the mesh placed proximally 1 cm from the urethral meatus. The entire suburethral portion the TVT was carefully dissected and removed. Closure Type: primary Specimen(s): none Estimated blood loss (mL): 10 Blood products transfused: none Procedure in detail: With the patient under satisfactory general anesthesia in a modified dorsal lithotomy position, the vagina, vulva, and lower abdomen were prepped and draped in the usual manner for vaginal surgery. A pre-surgical safety time-out was then taken in accordance with [facility] Main OR protocols. A Lone star retractor was then placed at the vaginal introitus and small hooks used to retract the labia minora on both sides. A weighted vaginal speculum was then placed in the vagina so as to inspect the site of the previously placed mid urethral sling. Gentle probing of the urethra revealed the presents of the previously placed sling to be very distal rather than in a mid urethral position. The area under the distal urethra was infiltrated with 0.25% Marcaine with epinephrine and a longitudinal incision was made under the area with a 15. Blade. Careful dissection if small Metzenbaum times and iris scissors identified the exact location of the mid urethral sling which was intimately involved with scar tissue at its placement site. The entire width of the sling was then dissected free and undermined with a small right angle clamp so as to mobilize a 2 cm segment of the mesh itself. Once adequate dissection had been achieved, the mesh was incised at each end of the dissection and the 2 cm segment of the mesh was removed without disruption of the normal portion of the mesh which remained in-situ. Hemostasis was achieved with judicious use monopolar cautery using a needle-tip cautery once hemostasis was assured, the incision was closed with 2-0 chromic catgut suture in a running locking stitch. The operation was then terminated by removal of the Lone star retractor and the weighted speculum from the vagina. Patient was then awakened from anesthesia and transferred to the PACU for a period of observation recovery after having tolerated the procedure well. Complications: none Post-operative Condition: stable Disposition: PACU Plan for aftercare: Routine postop care with follow-up planned for 4 weeks postop
[2023-11-03 13:30] VITALS: BP 148/88; PULSE 86; RESP 16; O2SAT 98
[2023-11-03 13:37] VITALS: BP 148/78; PULSE 85; RESP 16; TEMP 36.8; O2SAT 98
[2023-11-03 13:43] VITALS: BP 143/79; PULSE 85; RESP 16; TEMP 36.2; O2SAT 98
== END 2023-11-03 14:10 | disposition home or self-care (01) ==
PROVIDERS: PCP Nurse Practitioner; Referring Provider Obstetrics & Gynecology; Visit Provider Obstetrics & Gynecology
PROC: 0TSD0ZZ Reposition Urethra, Open Approach (ICD-10-PCS; CPT 57287; principal; 2023-11-03 11:15)
DX: T85.9XXA Unspecified complication of internal prosthetic device, implant and graft, initial encounter (principal)
CPT/HCPCS: 57287; J0171; J0690; J1885; J2250; J2405; J2704; J3010

== ENCOUNTER → 2024-04-09 09:39 | Outpatient (CLI) | payer OTHER, SELFPAY ==
[2024-03-12 15:18] VITALS: BMI 31.1
[2024-04-09 11:46] LABS: HEMOLYSIS < 15 (0-50); Iron 85 ug/dL (37-170)
[2024-04-09 11:48] LABS: Alanine Aminotransferase 56 IU/L (<35); Albumin 4.2 g/dL (3.5-5.0); Albumin Globulin Ratio 1.2 (1.0-2.8); Alkaline Phosphatase 139 U/L (38-126); Aspartate Aminotransferase 47 IU/L (14-36); BUN Creatinine Ratio 30.4 (6-22); Bilirubin Total 0.8 mg/dL (0.2-1.3); Blood Urea Nitrogen 17 mg/dL (7-17); Calcium 9.9 mg/dL (8.4-10.2); Carbon Dioxide 29 mmol/L (22-32); Chloride 97 mmol/L (98-107); Cholesterol 256 mg/dL (140-199); Estimated Glomerular Filt Rate > 60 mL/min (>60); Globulin 3.5 g/dL (1.7-4.1); Glucose 285 mg/dL (70-100); HDL Cholesterol 51 mg/dL (40-60); HEMOLYSIS < 15 (0-50); LDL Cholesterol Calculated 152 mg/dL (<100); Sodium 136 mmol/L (137-145); Total Protein 7.7 g/dL (6.3-8.2); Triglycerides 267 mg/dL (35-150)
[2024-04-09 12:00] LABS: Percent Iron Saturation 29 % (15-50); Total Iron Binding Capacity 289 ug/dL (265-497); Transferrin 236 mg/dL (206-381)
[2024-04-09 12:04] LABS: Hemoglobin A1C% w Est Avg Glu 13.7 % (4.0-6.0)
[2024-04-09 12:18] LABS: TSH w/ Reflex to FT4 0.79 uIU/mL (0.47-4.68)
== END ==
PROVIDERS: PCP Internal Medicine; Referring Provider Internal Medicine; Visit Provider Internal Medicine
DX: I10 Essential (primary) hypertension (principal); E78.5 Hyperlipidemia, unspecified; E11.65 Type 2 diabetes mellitus with hyperglycemia; R79.89 Other specified abnormal findings of blood chemistry
CPT/HCPCS: 36415; 80053; 80061; 82784; 83036; 83516; 83540; 83550; 84443; 86015; 86255

== ENCOUNTER 2024-04-21 11:51 | Emergency (ER) | payer OTHER, SELFPAY ==
[2024-03-12 15:18] VITALS: BMI 31.1
[2024-04-21] VITALS (12 sets, daily range): BP systolic 125–164; BP diastolic 67–102; PULSE 76–89; RESP 14; TEMP 36.3; O2SAT 95–99; BMI 29.5
[2024-04-21 12:20] LABS: Add Manual Diff / Slide Review NO; Basophils Absolute Auto 100 /uL (0-100); Basophils Percent Auto 1.3 % (0-2); Eosinophils Absolute Auto 500 /uL (0-450); Eosinophils Percent Auto 5.2 % (2-4); Hemoglobin 14.2 g/dL (12.0-16.0); Lymphocytes Absolute Auto 2600 /uL (1100-4500); Lymphocytes Percent Auto 29.1 % (25-40); Mean Corpuscular HGB Conc 34.5 % (30-36); Mean Corpuscular Hemoglobin 27.3 PG (26-34); Mean Corpuscular Volume 79.2 fL (80-100); Monocytes Absolute Auto 500 /uL (0-900); Monocytes Percent Auto 5.3 % (3-14); Neutrophils Absolute Auto 5300 /uL (1500-7000); Neutrophils Percent Auto 59.1 % (50-75); Platelet Count 520 X10^3/uL (150-400); Red Blood Cell Count 5.18 X10^6/uL (4.0-5.2); Red Cell Distribution Width 14.3 % (11.6-14.8)
[2024-04-21] MEDS: SODIUM CHLORIDE 0.9% 1,000 ML 1000 ML IV (12:20)
--- NOTE | 2024-04-21 12:21 | PC.NURSE ---
This MARIS and MARIS Boss performed a bed bath for this pt. assisted to change into fresh gown, changed brief, and purewick urine suction device.
[2024-04-21 12:26] LABS: Alanine Aminotransferase 42 IU/L (<35); Albumin 4.3 g/dL (3.5-5.0); Albumin Globulin Ratio 1.1 (1.0-2.8); Alkaline Phosphatase 105 U/L (38-126); Aspartate Aminotransferase 40 IU/L (14-36); BUN Creatinine Ratio 26.4 (6-22); Bilirubin Total 0.6 mg/dL (0.2-1.3); Blood Urea Nitrogen 14 mg/dL (7-17); Calcium 9.6 mg/dL (8.4-10.2); Carbon Dioxide 28 mmol/L (22-32); Chloride 102 mmol/L (98-107); Estimated Glomerular Filt Rate > 60 mL/min (>60); Glucose 247 mg/dL (70-100); HEMOLYSIS 38 (0-50); Lipase 135 U/L (23-300); Potassium 3.8 mmol/L (3.4-5.1); Sodium 138 mmol/L (137-145); Total Protein 8.3 g/dL (6.3-8.2)
--- NOTE | 2024-04-21 12:33 | ED_ITS ---
HPI - Abdominal Pain General Chief Complaint: Abdominal Pain Stated Complaint: diarrhea, abd pain, weakness Time Seen by Provider: 04/21/24 12:08 Source: patient Mode of arrival: Ambulatory History of Present Illness HPI narrative: 53-year-old female had just taken Ozempic for the 1st time 9 days ago, after which he started having abdominal cramping, and ongoing watery diarrhea. The diarrhea and cramping has not relented, no other doses of Ozempic, no black or red stools. Some nausea without emesis. No close contacts to persons with similar GI symptoms. No recent exposure to antibiotics. No camping or travel recent. No history of Crohn's disease, inflammatory bowel disease, irritable bowel, or other chronic abdominal conditions. History of diabetes, recalls being on metformin in the past, is not currently on metformin. No other new medications or change in medications. She has been having 6-10 episodes of loose stools per day. She feels that she might be dehydrated. Related Data Home Medications Medication Instructions Recorded Confirmed cetirizine 10 mg capsule (Zyrtec) 10 mg PO DAILY 04/09/20 04/09/24 Previous Rx's Medication Instructions Recorded Insulin Pen Girard #100 ea 11/01/22 epinephrine 0.3 mg/0.3 mL 0.3 mg (0.3 mL) IM SEE 12/26/22 injection, auto-injector (EpiPen INSTRUCTIONS #1 pkg 2-Justin) Dexcon Sensors #12 ea 12/29/22 albuterol sulfate 90 mcg/actuation See Rx Instructions .Route 07/07/23 aerosol inhaler .COMPLEX #18 grams blood-glucose meter,continuous #1 ea 08/15/23 (Dexcom G7 Polishing Machine Operator) blood-glucose sensor (Dexcom G7 #3 ea 08/15/23 Sensor device) empagliflozin 10 mg tablet 10 mg PO QAM #90 tabs 08/15/23 (Jardiance) hydrochlorothiazide 25 mg tablet See Rx Instructions .Route 09/28/23 .COMPLEX #180 tabs lorazepam 1 mg tablet 1 mg PO Q6HP PRN anxiety #20 tabs 10/04/23 estradiol 0.01% (0.1 mg/gram) 1 g vaginal 3XW #42.5 grams 10/10/23 vaginal cream triamcinolone acetonide 0.5 % 1 applic topical BID #15 grams 12/14/23 topical cream propranolol 20 mg tablet 20 mg PO BID for anxiety #180 tabs 01/26/24 fluconazole 150 mg tablet 150 mg PO Q3D 3 doses #3 tabs 04/09/24 insulin glargine 100 unit/mL (3 10 unit (0.1 mL) SUBCUT QPM #15 mL 04/09/24 mL) subcutaneous pen (Basaglar KwikPen U-100 Insulin) omeprazole 40 mg capsule,delayed See Rx Instructions .Route 04/09/24 release .COMPLEX #180 caps semaglutide 0.25 mg or 0.5 mg (2 0.5 mg (0.736 mL) SUBCUT QWEEK #3 04/09/24 mg/3 mL) subcutaneous pen injector mL (Ozempic) semaglutide 1 mg/dose (4 mg/3 mL) 1 mg (0.75 mL) SUBCUT QWEEK #3 mL 04/09/24 subcutaneous pen injector (Ozempic) Allergies Allergy/AdvReac Type Severity Reaction Status Date / Time bee venom protein (honey bee) Allergy Severe Anaphylaxis Verified 04/21/24 12:07 butalbital [BUTALBITAL] Allergy Mild FACIAL Verified 04/21/24 12:07 SWELLING Sulfa (Sulfonamide Allergy Mild RASH Verified 04/21/24 12:07 Antibiotics) [SULFA (SULFONAMIDE ANTIBIOTICS)] metformin AdvReac Intermediate diarrhea Verified 04/21/24 12:07 Barbiturates [BARBITURATES] AdvReac Mild DIZZYNESS, Verified 04/21/24 12:07 AGITTION, CONFUSION oxycodone [OXYCODONE] AdvReac Mild nausea, Verified 04/21/24 12:21 vomiting and chest tightness primidone [PRIMIDONE] AdvReac Mild DIZZYNESS,A Verified 04/21/24 12:21 GITATION,CO NFUSION Review of Systems Review of Systems Narrative: see HPI Patient History Medical History Rheumatoid arthritis Elevated LFTs Lumbar strain Insomnia Hypoglycemic reaction to insulin in type 2 diabetes mellitus Peripheral neuropathy due to metabolic disorder Piriformis syndrome of left side Atypical chest pain Seasonal allergies History of tremor Headache Palpitations Hypertension Hyperlipidemia Anxiety Shoulder pain Chicken pox Irregular menstrual cycle Sleep apnea Depression Migraine Chronic back pain Vertigo Menorrhagia PCOS (polycystic ovarian syndrome) GERD (gastroesophageal reflux disease) Infertility Uncontrolled type 2 diabetes mellitus (2008) Class 1 obesity (12/25/17) Tremor (12/20/17) Essential hypertension (12/20/17) Asthma Surgical History History of bladder surgery Anesthesia H/O unilateral salpingectomy (2001) H/O elbow surgery (2010) Status post surgery (05/18/12) Family History Brother Age: 54 Hyperlipidemia Diabetes mellitus Hypertension Father CAD (coronary artery disease) Dementia Anxiety and depression Hx of CABG History of heart disease Hypertension Hyperlipidemia Mental health problem Mother DM type 2 (diabetes mellitus, type 2) Hyperlipidemia Anxiety Hypertension Cancer Sister Age: 56 Mental health problem Social History marital status: household members: spouse and family lives independently: Yes housing: house pets and animals: Yes education level: college occupational status: employed Smoking Status: Never smoker alcohol intake: current substance use type: does not use Smoking Status: Never smoker alcohol intake frequency: holidays/special occasions only Substance Use Type: does not use Exam Narrative Exam Narrative: GENERAL: Well-developed patient, in mild distress. HEAD: Atraumatic. Normocephalic. EYES: Pupils equal round and reactive. Extraocular motions intact. No scleral icterus. No injection or drainage. ENT: Nose without bleeding, purulent drainage. Throat without erythema, tonsillar hypertrophy or exudate. Airway patent. NECK: Trachea midline. Non tender CARDIOVASCULAR: Regular rate and rhythm without murmurs, gallops, or rubs. RESPIRATORY: Clear to auscultation. Breath sounds equal bilaterally. No wheezes, rales, or rhonchi. GASTROINTESTINAL: Abdomen soft, non-tender, nondistended. EXTREMITIES: No edema or joint tenderness. BACK: Nontender without deformity or crepitance. No flank tenderness. NEURO: AOx3. Nonfocal neuro exam SKIN: No rash or erythema of visible areas Initial Vital Signs Initial Vital Signs: Vital Signs Temperature 97.4 F L 04/21/24 11:59 Pulse Rate 86 04/21/24 11:59 Respiratory Rate 14 04/21/24 11:59 Blood Pressure 152/81 H 04/21/24 11:59 Pulse Oximetry 99 04/21/24 11:59 Oxygen Delivery Method Room Air 04/21/24 11:59 Course Orders Ordered: ED Orders 04/21/24 12:07 Urinalysis and Microscopic Stat Urine Culture Stat 04/21/24 12:09 Complete Blood Count AUTO DIFF Stat Comprehensive Metabolic Panel Stat Lipase Stat 04/21/24 13:04 CT abdomen pelvis w con Stat Discontinued Medications Sodium Chloride (Normal Saline 0.9%) 1,000 mls @ 1,000 mls/hr IV BOLUS ONE Stop: 04/21/24 13:05 Last Infusion: 04/21/24 13:31 Dose: Infused Documented By: Admin: 04/21/24 12:20 Dose: 1,000 mls/hr Documented By: TATI Ondansetron HCl (Ondansetron 4 Mg/2 Ml Inj) 4 mg IV NOW PRN PRN Reason: Nausea And Vomiting Ondansetron HCl (Ondansetron 4 Mg Odt) 4 mg PO NOW PRN PRN Reason: Nausea And Vomiting Vital Signs Vital signs: Vital Signs - 8 hr 04/21/24 11:59 04/21/24 12:47 04/21/24 12:47 Temperature 97.4 F L Pulse Rate 86 79 Respiratory Rate 14 Blood Pressure 152/81 H 125/73 Pulse Oximetry 99 98 Oxygen Delivery Method Room Air 04/21/24 13:00 04/21/24 13:00 04/21/24 13:21 Temperature Pulse Rate 78 Respiratory Rate Blood Pressure 148/102 H 164/78 H Pulse Oximetry 97 Oxygen Delivery Method 04/21/24 13:21 04/21/24 13:30 04/21/24 13:30 Temperature Pulse Rate 89 83 Respiratory Rate Blood Pressure 161/82 H Pulse Oximetry 99 99 Oxygen Delivery Method 04/21/24 14:00 04/21/24 14:00 04/21/24 14:30 Temperature Pulse Rate 82 Respiratory Rate Blood Pressure 156/78 H 132/67 Pulse Oximetry 96 Oxygen Delivery Method 04/21/24 14:30 04/21/24 15:00 04/21/24 15:00 Temperature Pulse Rate 82 81 Respiratory Rate Blood Pressure 141/67 H Pulse Oximetry 96 95 Oxygen Delivery Method 04/21/24 15:30 04/21/24 15:30 04/21/24 16:00 Temperature Pulse Rate 80 Respiratory Rate Blood Pressure 142/67 H 136/75 Pulse Oximetry 97 Oxygen Delivery Method 04/21/24 16:00 04/21/24 16:30 04/21/24 16:30 Temperature Pulse Rate 76 79 Respiratory Rate Blood Pressure 142/80 H Pulse Oximetry 98 99 Oxygen Delivery Method 04/21/24 17:00 04/21/24 17:00 Temperature Pulse Rate 79 Respiratory Rate Blood Pressure 146/81 H Pulse Oximetry 99 Oxygen Delivery Method MDM - Abdominal Pain Lab Data 04/21/24 12:09 04/21/24 12:09 Labs: Lab Results 04/21/24 04/21/24 Range/Units 12:07 12:09 WBC 9.0 (4.5-11.0) X10^3/uL RBC 5.18 (4.0-5.2) X10^6/uL Hgb 14.2 (12.0-16.0) g/dL Hct 41.0 (36-46) % MCV 79.2 L (80-100) fL MCH 27.3 (26-34) PG MCHC 34.5 (30-36) % RDW 14.3 (11.6-14.8) % Plt Count 520 H (150-400) X10^3/uL Neut % (Auto) 59.1 (50-75) % Lymph % (Auto) 29.1 (25-40) % Jerome % (Auto) 5.3 (3-14) % Eos % (Auto) 5.2 H (2-4) % Baso % (Auto) 1.3 (0-2) % Neut # (Auto) 5300 (8237-9207) /uL Lymph # (Auto) 2600 (2136-4448) /uL Jerome # (Auto) 500 (0-900) /uL Eos # (Auto) 500 H (0-450) /uL Baso # (Auto) 100 (0-100) /uL Sodium 138 (137-145) mmol/L Potassium 3.8 (3.4-5.1) mmol/L Chloride 102 (98-107) mmol/L Carbon Dioxide 28 (22-32) mmol/L BUN 14 (7-17) mg/dL Creatinine 0.53 (0.52-1.04) mg/dL Estimated GFR > 60 (>60) mL/min BUN/Creatinine Ratio 26.4 H (6-22) Glucose 247 H (70-100) mg/dL Calcium 9.6 (8.4-10.2) mg/dL Total Bilirubin 0.6 (0.2-1.3) mg/dL AST 40 H (14-36) IU/L ALT 42 H (<35) IU/L Alkaline Phosphatase 105 (38-126) U/L Total Protein 8.3 H (6.3-8.2) g/dL Albumin 4.3 (3.5-5.0) g/dL Globulin 4.0 (1.7-4.1) g/dL Albumin/Globulin Ratio 1.1 (1.0-2.8) Lipase 135 (23-300) U/L Urine Color Yellow Urine Appearance Clear Urine pH 6.0 (4.5-8.0) Ur Specific [place] 1.010 (1.000-1.035) Urine Protein Negative (Negative) Urine Glucose (UA) 3+ H (Negative) g/dL Urine Ketones Trace H (NEGATIVE) Urine Occult Blood Trace-intact (Negative) Urine Nitrate Negative (Negative) Urine Bilirubin Negative (NEGATIVE) Urine Urobilinogen 0.2 (0.2) E.U./dL Ur Leukocyte Esterase Negative (NEGATIVE) Urine RBC 0-1/hpf (0-5/HPF) Urine WBC None seen (0-5/HPF) Ur Squamous Epith Cells 0-1 /hpf (0-5/HPF) Urine Bacteria None seen (None) Ur Culture Indicated? Cult not indicated Vol Urine Centrifuged 10ml (spun) Point of care testing: Urine Dip Bedside Urine Glucose 1000 mg/dl Bedside Urine Bilirubin - Negative Bedside Urine Ketone - Negative Urine Specific [place] 1.010 Bedside Urine Occult Blood +/- Bedside Urine pH 6.0 Bedside Urine Protein +/- 15 Bedside Urine Urobilinogen - Negative Bedside Urine Nitrite - Negative Bedside Urine Leukocytes - Negative Esterase MDM Narrative Medical decision making narrative: 53-year-old female with persistent abdominal cramping and clear watery diarrhea since 1st exposure to Ozempic medication 9 days ago. Afebrile, sirs screen negative. Abdomen nondistended with mild generalized tenderness, no guarding or rebound tenderness. DDx consider side effect of Ozempic although many days since initial/only oral dose, also would consider infectious enteritis, colitis, diverticulitis, other. Suspect component of dehydration by history. IV fluids. We will check labs including electrolytes. Stool studies if she produces a specimen here. White blood cell count unremarkable, hemoglobin normal, urinalysis negative, GFR favorable. No stool specimen obtained for lab testing. CT abdomen and pelvis imaging ordered Discharge Plan Departure Patient Disposition: Home Clinical Impression: Abdominal pain, Diarrhea, Dehydration Activity Restrictions/Additional Instructions: Abdominal cramping and diarrhea for 9 days since starting Ozempic, single dose, she did not take any further doses. Screening labs unremarkable. CT abdomen and pelvis showed no acute changes. Unclear if her ongoing diarrhea is due to the single Ozempic exposure. Stool studies were requested but no specimen obtained while in the emergency department. Take Tylenol as needed. Encouraged to take oral fluids. Could consider use of [id number] loperamide that can help control diarrheal symptoms, but you were here for a number of hours and did not seem to have any diarrhea here to obtain any specimen. Avoid Ozempic for now, as this might be the cause of your symptoms though it was unclear. Recheck symptoms with your regular doctor if not improved in 2 days. Return to this/nearest emergency department for any change worsening symptoms or any concerns prior Prescriptions: No Action (DME) Insulin Pen Girard See Rx Instructions .Route .MEDSUPPLY Qty: 100 3RF Rx Instructions: Inject insulin at bedtime daily epinephrine [EpiPen 2-Justin] 0.3 mg/0.3 mL auto-injector 0.3 mg IM SEE INSTRUCTIONS Qty: 1 2RF Rx Instructions: use for anaphylaxis, call 911, Dispense 2 pens or 2-Justin (DME) Dexcon Sensors See Rx Instructions .Route .MEDSUPPLY Qty: 12 3RF Rx Instructions: CGM Sensors - change every 14 days PT is out, STAT FAX PA to albuterol sulfate 90 mcg/actuation HFA aerosol inhaler See Rx Instructions .ROUTE .COMPLEX Qty: 18 3RF Dose Instruction: INHALE 2 PUFFS EVERY 6 HOURS NEEDED FOR SHORTNESS OF BREATH OR WHEEZING Rx Instructions: INHALE 2 PUFFS EVERY 6 HOURS NEEDED FOR SHORTNESS OF BREATH OR WHEEZING Jardiance 10 mg tablet 10 mg PO QAM Qty: 90 3RF (DME) Dexcom G7 Polishing Machine Operator Misc See Rx Instructions .Route Qty: 1 0RF Rx Instructions: As directed (DME) Dexcom G7 Sensor Device See Rx Instructions .Route Qty: 3 5RF Rx Instructions: As directed, change sensor every 10 days hydrochlorothiazide 25 mg tablet See Rx Instructions .ROUTE .COMPLEX Qty: 180 1RF Dose Instruction: TAKE 2 TABLETS BY MOUTH EVERY DAY UNTIL WEIGHT DOWN TO GOAL WEIGHT OF 180; THEN 1 TABLET DAILY. Rx Instructions: TAKE 2 TABLETS BY MOUTH EVERY DAY UNTIL WEIGHT DOWN TO GOAL WEIGHT OF 180; THEN 1 TABLET DAILY. lorazepam 1 mg tablet 1 mg PO Q6HP PRN (Reason: anxiety) Qty: 20 1RF triamcinolone acetonide 0.5 % cream 1 applic topical BID Qty: 15 3RF propranolol 20 mg tablet 20 mg PO BID Qty: 180 0RF estradiol 0.01 % (0.1 mg/gram) cream 1 g vaginal 3XW Qty: 42.5 12RF Rx Instructions: Apply 1 g PV hs x7 days, then PV hs 3 nights weekly Zyrtec 10 mg capsule 10 mg PO DAILY insulin glargine [Basaglar KwikPen U-100 Insulin] 100 unit/mL (3 mL) insulin pen 10 unit SUBCUT QPM Qty: 15 3RF Rx Instructions: Inject 10u SQ each evening prior to bedtime omeprazole 40 mg capsule,delayed release(DR/EC) See Rx Instructions .ROUTE .COMPLEX Qty: 180 1RF Dose Instruction: TAKE 1 CAPSULE BY MOUTH TWICE DAILY Rx Instructions: TAKE 1 CAPSULE BY MOUTH TWICE DAILY fluconazole 150 mg tablet 150 mg PO Q3D Qty: 3 1RF Rx Instructions: may repeat second dose 72 hrs after first dose if symptoms persist and 3rd dose 72 hours after 2nd prn Ozempic 0.25 mg or 0.5 mg (2 mg/3 mL) pen injector 0.5 mg SUBCUT QWEEK Qty: 3 0RF Rx Instructions: use for 4 weeks then increase dose to 1mg weekly Ozempic 1 mg/dose (4 mg/3 mL) pen injector 1 mg SUBCUT QWEEK Qty: 3 3RF Referrals: Jesus Alberto Jimenez MD [Primary Care Provider] - Stand Alone Forms: Patient Portal/API
[2024-04-21 12:45] LABS: Appearance Urine UA CLEAR; Bilirubin Urine UA NEGATIVE (NEGATIVE); Color Urine UA YELLOW; Glucose Urine UA 3+ g/dL (Negative); Ketones Urine UA TRACE (NEGATIVE); Leukocyte Esterase Urine UA NEGATIVE (NEGATIVE); Nitrite Urine UA NEGATIVE (Negative); Occult Blood Urine UA TRACE-INTACT (Negative); Protein Urine UA NEGATIVE (Negative); Urobilinogen Urine UA 0.2 E.U./dL (0.2)
[2024-04-21 12:56] LABS: Urine Volume 10mL (spun)
[2024-04-21 12:57] LABS: Bacteria Urine None Seen; Culture Indicated Urine Cult Not Indicated; RBC Urine 0-1/HPF (0-5/HPF); Squamous Epithelial Cell Urine 0-1 /HPF (0-5/HPF); WBC Urine None Seen (0-5/HPF)
--- NOTE | 2024-04-21 13:04 | DI.CT.S_ITS ---
PROCEDURE: CT ABDOMEN PELVIS W CON INDICATIONS: abd pain TECHNIQUE: After the administration of intravenous contrast, axial sections acquired from the lung bases to the pubic symphysis. Coronal and sagittal reformats were performed. For radiation dose reduction, the following was used: automated exposure control, adjustment of mA and/or kV according to patient size. COMPARISON: None. FINDINGS: Lower thorax: The lung bases are clear. Heart size normal. No hiatal hernia. Liver: The liver is diffusely decreased in attenuation without focal mass lesion. Biliary system: Calcified stones noted in the lumen of the gallbladder. No pericholecystic inflammatory change. No intra or extrahepatic bile duct dilation. Pancreas: Unremarkable without mass or inflammation evident. Spleen: Normal in size and density. Adrenals: Normal morphology and density. Reproductive system: Unremarkable as visualized. Urinary system: Normal renal size and attenuation. No renal calculi, hydronephrosis, or solid mass present. Urinary bladder unremarkable. Gastrointestinal system: The bowel is unremarkable without evidence of bowel obstruction or inflammation. The stomach appears unremarkable. Multiple diverticula arise from the sigmoid colon without evidence of diverticulitis. Appendix: Normal appendix identified. No evidence of appendicitis. Peritoneal spaces: No mesenteric or retroperitoneal adenopathy. No free air. No free fluid. Vasculature: The IVC, aorta and iliac vasculature are unremarkable. Abdominal wall: Small periumbilical ventral hernia Musculoskeletal: Normal bone mineralization. No acute fractures. IMPRESSION: No acute CT findings in the and pelvis. Chronic degenerative findings include cholelithiasis and diverticulosis without inflammatory change, patent fatty infiltration, small periumbilical ventral hernia Approved by: Guzman Cervantes M.D. on 04/21/2024 at 13:50
== END 2024-04-21 17:25 | disposition home or self-care (01) ==
PROVIDERS: Emergency Provider Emergency Medicine; PCP Internal Medicine
DX: R10.9 Unspecified abdominal pain (principal); R19.7 Diarrhea, unspecified; E86.0 Dehydration; Z79.899 Other long term (current) drug therapy
CPT/HCPCS: 36415; 74177; 80053; 81001; 81003; 83690; 85025; 87086; 96360; 99284; Q9967

== ENCOUNTER → 2024-04-26 08:11 | Outpatient (CLI) | payer OTHER, SELFPAY ==
[2024-03-12 15:18] VITALS: BMI 31.1
== END ==
PROVIDERS: PCP Internal Medicine; Referring Provider Family Medicine; Visit Provider Family Medicine
DX: R19.7 Diarrhea, unspecified (principal); R10.9 Unspecified abdominal pain
CPT/HCPCS: 87045

== ENCOUNTER → 2024-06-20 13:10 | Outpatient (CLI) | payer OTHER, SELFPAY ==
[2024-03-12 15:18] VITALS: BMI 31.1
== END ==
PROVIDERS: PCP Internal Medicine; Referring Provider Internal Medicine; Visit Provider Internal Medicine
DX: Z23 Encounter for immunization (principal)
CPT/HCPCS: 90471; 90656

== ENCOUNTER → 2025-02-04 15:43 | Outpatient (CLI) | payer OTHER, SELFPAY ==
[2024-03-12 15:18] VITALS: BMI 31.1
--- NOTE | 2025-02-21 09:29 | DIAB.MNT ---
Initial Diabetes Medical Nutrition Therapy Assessment Name: Valery Martinez Date: 02/04/25 Time: 4-5p Dx: Type II Diabetes Provider: Barbara Rasmussen presents for initial Dm visit. Last RD visit January 2022. Endorses h/o diarrhea with Semaglutide and Metformin. Reports BM problems since trying Semaglutide. Did not resolve after d/c of GLP1 04/2024. Now experiences watery or soft BM q other day. Wants info on what to eat. Reduced meat intake. Been eating one banana per day to help with BM. Tries to keep meals small to reduce bloat. Veggies that are easier to digest when blanched, not raw. Based on CGM results, likely needs additional DM medication, possibly meal time insulin. She is interested in insulin pump therapy to reduce BG and DM management burden. Specifically interested in Omnipod delivery system. Will likely need to go to Endocrinology for this therapy since PCP does not feel comfortable managing pump therapy with Diabetes Education support. February PCP appt. Diet Recall: 715a: eggs, [place] OR oatmeal with butter and scoop of brown sugar sn: nothing or trail mix crackers OR veggies 12p: salad OR broth based soup and 3 crackers 430p: Stir astudillo, [place], 1c rice OR Fish and ketchup OR sometimes steak, 1c rice or 1c mashed potatoes sn: nothing or 1.5c ice cream Water 100oz Raspberry iced tea x 1-2 zero sugar soda +/- crystal light +/- tea with sweet n low Anthropometrics: Ht: 64 Wt: 175# 01/2025 wt hx: Reports UBW: 168-180#, years ago 240#. Self-Monitoring Blood Glucose: Excessive hyperglycemia above 250mg/dl. Time in range well below goal. Likely needs additional DM medication. TIR: 83% very high 16% high 1% range avmg/dl GMI: 10.8% std dev: 60mg/dl variance: 19.2% Diabetes Medications: Jardiance 10mg Glargine 20-50u (30u HS, 30u AM) Pertinent Labs: HgA1c: 13.7% 04/2024 Past Medical History: (Last Updated 01/17/25 @ 11:29 by Jesus Alberto Jimenez MD) Anxiety Asthma Atypical chest pain Cataracts, bilateral Chicken pox Chronic back pain Chronic diarrhea Class 1 obesity (12/25/17) Depression Diabetic retinopathy Elevated LFTs neg partial w/u 2018 w/imaging Essential hypertension (12/20/17) Essential tremor GERD (gastroesophageal reflux disease) Headache History of tremor Hyperlipidemia Hypertension Hypoglycemic reaction to insulin in type 2 diabetes mellitus Infertility Insomnia Irregular menstrual cycle Lumbar strain Menorrhagia Migraine Palpitations PCOS (polycystic ovarian syndrome) Peripheral neuropathy due to metabolic disorder Piriformis syndrome of left side Rheumatoid arthritis Seasonal allergies Shoulder pain Sleep apnea Tremor (12/20/17) Uncontrolled type 2 diabetes mellitus (2008) Vertigo Nutrition Rx: Carbohydrates: Meal:30g Snack:15-30g Nutrition Diagnosis: - Food and Nutrition knowledge deficit r/t limited MNT aeb pt report - Altered GI function r/t GLP1 use resulting in chronic soft stool aeb pt report Intervention: This participant was very receptive. Provided appropriate educational handouts. Discussed the following topics: Completed intake assessment. Diarrhea MNT Recommended servings for carbohydrates at meals and snacks DM medication and insulin delivery options Created SMART goals for patient self-care and success. Goals: Aim for small, frequent meals Continue veggie intake Discuss Omnipod with PCP Follow-up: SEBASTIÁN MORENO follow-up in 2-[address] did message PCP about insulin pump management. Since he does not feel comfortable managing pumps with DM ed, rec endocrinology management with diabetes education support. Anabelle Izaguirre RDN, [facility] Certified Diabetes Care and Clam [employer]ger P: [phone] Thank you for this referral
== END ==
PROVIDERS: PCP Internal Medicine; Referring Provider Internal Medicine
DX: E11.65 Type 2 diabetes mellitus with hyperglycemia (principal); Z71.3 Dietary counseling and surveillance; Z79.84 Long term (current) use of oral hypoglycemic drugs; Z79.4 Long term (current) use of insulin
CPT/HCPCS: 97802

== ENCOUNTER → 2025-04-04 11:33 | Outpatient (CLI) | payer OTHER, SELFPAY ==
[2024-03-12 15:18] VITALS: BMI 31.1
[2025-04-04 12:48] LABS: Add Manual Diff / Slide Review NO; Hematocrit 34.9 % (36-46); Hemoglobin 11.7 g/dL (12.0-16.0); Lymphocytes Absolute Auto 2100 /uL (1100-4500); Mean Corpuscular HGB Conc 33.6 % (30-36); Mean Corpuscular Hemoglobin 26.8 PG (26-34); Mean Corpuscular Volume 79.8 fL (80-100); Platelet Count 352 X10^3/uL (150-400)
[2025-04-04 13:11] LABS: Alanine Aminotransferase 35 IU/L (<35); Albumin 3.8 g/dL (3.5-5.0); Albumin Globulin Ratio 1.1 (1.0-2.8); Alkaline Phosphatase 125 U/L (38-126); Blood Urea Nitrogen 18 mg/dL (7-17); Calcium 9.4 mg/dL (8.4-10.2); Carbon Dioxide 28 mmol/L (22-32); Chloride 101 mmol/L (98-107); Estimated Glomerular Filt Rate > 60 mL/min (>60); Globulin 3.4 g/dL (1.7-4.1); Glucose 203 mg/dL (70-99); HEMOLYSIS < 15 (0-50); Potassium 5.2 mmol/L (3.4-5.1); Sodium 135 mmol/L (137-145); Total Protein 7.2 g/dL (6.3-8.2)
[2025-04-04 13:20] LABS: NT-proBNP (BNP-Adult 18+) 304 pg/mL (<125)
[2025-04-04 13:27] LABS: Free T4, Direct Thyroxine 1.45 ng/dL (0.78-2.19)
[2025-04-04 13:41] LABS: Thyroid Stimulating Hormone 1.57 uIU/mL (0.47-4.68)
== END ==
PROVIDERS: PCP Internal Medicine; Referring Provider Internal Medicine; Visit Provider Internal Medicine
DX: I10 Essential (primary) hypertension (principal); R60.0 Localized edema; I50.9 Heart failure, unspecified
CPT/HCPCS: 36415; 80053; 83880; 84439; 84443; 85025

== ENCOUNTER → 2025-04-07 07:53 | Outpatient (CLI) | payer OTHER, SELFPAY ==
[2024-03-12 15:18] VITALS: BMI 31.1
--- NOTE | 2025-04-07 07:54 | DI.ECHO.S_ITS ---
[facility]+ [facility] : : [address] : : [place] : : [id number] : : Phone: [phone] Echocardiogram Report + + :Name: JES BELLA Study Date: 04/07/2025 Height: 64 in : :Hospital ReadingLocation: Weight: 194 lb : : Gender: Female BSA: 1.9 m2 : :: 1970 Age: 54 yrs BP: 154/92 mmHg: :Reason For Study: EDEMA : :Ordering Physician: ELY, : :KIKA Pratt Performed By: Mitzi Suresh : :Referring: KIKA GRAVES : + + Interpretation Summary Normal left ventricle size with ejection fraction 60-65%. The left atrium is mildly dilated. Mild aortic valve sclerosis. The right ventricular systolic pressure is estimated to be at least 43 mmHg based on an estimated right atrial pressure of 8 mm Hg. Comparison is made with the echocardiogram of 04/16/2021, no significant change. Procedure: A two-dimensional transthoracic echocardiogram with color flow and Doppler was performed. The study quality was technically adequate. Comparison is made with the echocardiogram of 04/16/2021. The patient was in sinus rhythm with heart rates between 70-75 bpm during the exam. Left Ventricle: The left ventricle is normal in size and wall thickness. The ejection fraction is estimated to be 60-65%. There are no focal wall motion abnormalities. Right Ventricle: The right ventricle is normal in size and function. Atria: The left atrium is mildly dilated. Right atrial size is normal. There is no Doppler evidence for an interatrial shunt. Mitral Valve: The mitral valve leaflets appear to open well. There is trace mitral regurgitation. Aortic Valve: The aortic valve is trileaflet. The aortic valve opens well. There is mild aortic valve sclerosis. There is no aortic valve stenosis. No aortic regurgitation is present. Tricuspid Valve: The tricuspid valve leaflets are thin and pliable. There is trace tricuspid regurgitation. The right ventricular systolic pressure is estimated to be at least 43 mmHg based on an estimated right atrial pressure of 8 mm Hg. Pulmonic Valve: The pulmonic valve leaflets are thin and pliable; valve motion is normal. There is trace pulmonic regurgitation. Great Vessels: The aortic root is normal size. The dimensions of the ascending aorta are normal. The IVC is of normal diameter and collapses less than 50% with a sniff. This suggests a right atrial pressure of 8 mm Hg. Pericardium/ Pleura There is no pericardial effusion. There is no pleural effusion. MMode/2D Measurements & Calculations LVIDd: 4.5 cm LVOT diam: 1.8 cm LVIDs: 2.7 cm Ao root diam: 2.6 cm FS: 40.6 % asc Aorta Diam: 3.5 cm EPSS: 0.23 cm Ao Arch Diam (Prox Trans): 2.8 cm IVSd: 0.99 cm LVPWd: 0.80 cm LV paz. diameter/BSA (cm/m^2): 2.3 LV sys. diameter/BSA (cm/m^2): 1.4 LA A2 area: 21.8 cm2 RA long axis: 5.9 cm LA A4 area: 22.6 cm2 RA area: 18.3 cm2 LA length (vol): 6.0 cm RA vol: 48.1 ml LA vol: 70.2 ml RA : 24.9 ml/m2 LA vol index: 36.4 ml/m2 IVC diam: 2.0 cm RVD1 (basal): 3.4 cm TAPSE: 2.7 cm Doppler Measurements & Calculations Ao V2 max: 147.8 cm/sec LVOT Max Bakari: 111.5 cm/sec Ao V2 mean: 100.9 cm/sec LV V1 max P.0 mmHg Ao max P.8 mmHg LV V1 VTI: 25.7 cm Ao mean P.5 mmHg BRANDON(I,D): 2.2 cm2 Ao V2 VTI: 31.2 cm BRANDON(V,D): 2.0 cm2 sev ratio: 0.82 BRANDON indexed to BSA (cm^2/m^2): 1.1 MV E max bakari: 98.5 cm/sec TR max bakari: 312.9 cm/sec MV A max bakari: 101.9 cm/sec TR max P.9 mmHg MV E/A: 0.97 PA V2 max: 111.7 cm/sec Med Peak E' Bakari: 9.1 cm/sec PA V2 mean: 79.5 cm/sec E/E' med: 10.9 PA mean P.8 mmHg Lat Peak E' Bakari: 7.4 cm/sec PA pr(Accel): 25.9 mmHg E/E' lat: 13.4 E/e' average: 12.1 MV dec time: 0.20 sec SV(LVOT): 67.2 ml Electronically signed by: Dyana Andrade on Reading Physician:04/07/2025 10:59 AM
== END ==
PROVIDERS: PCP Internal Medicine; Referring Provider Internal Medicine; Visit Provider Internal Medicine
DX: R60.0 Localized edema (principal); I35.8 Other nonrheumatic aortic valve disorders
CPT/HCPCS: 93306

== ENCOUNTER → 2025-04-11 08:51 | Outpatient (CLI) | payer OTHER, SELFPAY ==
[2024-03-12 15:18] VITALS: BMI 31.1
--- NOTE | 2025-04-11 08:53 | DI.RAD.S_ITS ---
PROCEDURE: XR CHEST 2V INDICATIONS: dyspnea TECHNIQUE: 2 views of the chest were acquired. COMPARISON: [facility], CR, XR CHEST 1V, 02/21/2021, 13:58. FINDINGS: Surgical changes and devices: None. Lungs and pleura: Mild diffuse interstitial prominence. Mild perihilar airway thickening. Mild streaky bibasilar opacities . No dense consolidation. No pneumothorax or pleural effusion. Mediastinum: Mediastinal contours are normal. Heart size is normal. Bones and chest wall: No suspicious bony abnormalities. Soft tissues appear unremarkable. Age-appropriate degenerative changes of the imaged spine. IMPRESSION: Mild diffuse interstitial prominence and perihilar airway thickening favored to represent an infectious or inflammatory process such as bronchitis. No dense consolidation. Dictated by: Bear Ibrahim M.D. on 04/11/2025 at 12:51 Approved by: Bear Ibrahim M.D. on 04/11/2025 at 12:54
[2025-04-11 10:06] LABS: Add Manual Diff / Slide Review NO; Hematocrit 35.2 % (36-46); Hemoglobin 12.0 g/dL (12.0-16.0); Lymphocytes Absolute Auto 1600 /uL (1100-4500); Mean Corpuscular HGB Conc 34.0 % (30-36); Mean Corpuscular Hemoglobin 27.5 PG (26-34); Mean Corpuscular Volume 80.6 fL (80-100); Platelet Count 323 X10^3/uL (150-400)
[2025-04-11 10:39] LABS: Alanine Aminotransferase 32 IU/L (<35); Albumin 3.8 g/dL (3.5-5.0); Albumin Globulin Ratio 1.1 (1.0-2.8); Alkaline Phosphatase 137 U/L (38-126); Blood Urea Nitrogen 19 mg/dL (7-17); Calcium 9.4 mg/dL (8.4-10.2); Carbon Dioxide 27 mmol/L (22-32); Chloride 99 mmol/L (98-107); Estimated Glomerular Filt Rate > 60 mL/min (>60); Globulin 3.5 g/dL (1.7-4.1); Glucose 362 mg/dL (70-99); HEMOLYSIS < 15 (0-50); Potassium 5.1 mmol/L (3.4-5.1); Sodium 134 mmol/L (137-145); Total Protein 7.3 g/dL (6.3-8.2)
[2025-04-11 10:41] LABS: NT-proBNP (BNP-Adult 18+) 366 pg/mL (<125)
== END ==
PROVIDERS: PCP Internal Medicine; Referring Provider Internal Medicine; Visit Provider Internal Medicine
DX: R06.00 Dyspnea, unspecified (principal); R79.89 Other specified abnormal findings of blood chemistry; I11.0 Hypertensive heart disease with heart failure; I50.9 Heart failure, unspecified
CPT/HCPCS: 36415; 71046; 80053; 83880; 85025; 85651; 86140

== ENCOUNTER → 2025-05-27 07:46 | Outpatient (CLI) | payer OTHER, SELFPAY ==
[2024-03-12 15:18] VITALS: BMI 31.1
--- NOTE | 2025-05-27 08:43 | DIAB.FU ---
Follow-up Diabetes Education Assessment Name: Valery Martinez Date: 05/27/25 Time: 8840a Dx: Type II Diabetes Valery presents for Dm visit. Recently started Omnipod 5 with endo in [place] and trained with [facility] in [place]. BG running high still, likely needs adjustment to settings, however she is feeling low symptoms (nausea, foggy, light headed) with Bg in the 130s. Will plan to reduce Bg and change settings slowly. Has endo f/u in Sep 2025. Has questions about OP5/Dexcom placement and bolusing behaviors. Previously endorsed h/o diarrhea with Semaglutide and Metformin. BM problems since trying Semaglutide. Did not resolve after d/c of GLP1 04/2024. OP5 Settings: IC ratio: 7g ISF: 26 Duration of insulin: 4 hours Max bolus: 25 Max basal rate: 2.7u/hour Target and correct above: 130mg/dl Anthropometrics: Ht: 64 Wt: 175# 01/2025 wt hx: Reports UBW: 168-180#, years ago 240#. Self-Monitoring Blood Glucose: Similar TIR as last visit. TIR: 81% very high 17% high 2% range avmg/dl GMI: 10.9% std dev: 66 mg/dl variance: 20.9% Last TIR: 83% very high 16% high 1% range avmg/dl GMI: 10.8% std dev: 60mg/dl variance: 19.2% Diabetes Medications: Jardiance 10mg Glargine 20-50u (30u HS, 30u AM)---- d/c Insulin via pump Pertinent Labs: HgA1c: 13.7% 04/2024 Past Medical History: (Last Updated 01/17/25 @ 11:29 by Jesus Alberto Jimenez MD) Anxiety Asthma Atypical chest pain Cataracts, bilateral Chicken pox Chronic back pain Chronic diarrhea Class 1 obesity (12/25/17) Depression Diabetic retinopathy Elevated LFTs neg partial w/u 2018 w/imagingEssential hypertension (12/20/17) Essential tremor GERD (gastroesophageal reflux disease) Headache History of tremor Hyperlipidemia Hypertension Hypoglycemic reaction to insulin in type 2 diabetes mellitus Infertility Insomnia Irregular menstrual cycle Lumbar strain Menorrhagia Migraine Palpitations PCOS (polycystic ovarian syndrome) Peripheral neuropathy due to metabolic disorder Piriformis syndrome of left side Rheumatoid arthritis Seasonal allergies Shoulder pain Sleep apnea Tremor (12/20/17) Uncontrolled type 2 diabetes mellitus (2008) Vertigo Intervention: This participant was very receptive. Provided appropriate educational handouts. Discussed the following topics: OP5 and Dexcom placement options Settings and goals Bolusing pre meal/snack and for correction Etiology of low symptoms with improving BG Created SMART goals for patient self-care and success. Goals: Reduce Target and correct above range by 10mg/dl next week- new bolus pre meal/snack- new use correction bolusing - new Follow-up: SEBASTIÁN MORENO follow-up in 1 week remotely and in 3-4 weeks in person. Anabelle Izaguirre RDN, CDCES Certified Diabetes Care and [employer] P: [phone] Thank you for this referral
== END ==
PROVIDERS: PCP Internal Medicine; Referring Provider Internal Medicine
DX: Z96.41 Presence of insulin pump (external) (internal) (principal); Z79.4 Long term (current) use of insulin; Z79.84 Long term (current) use of oral hypoglycemic drugs
CPT/HCPCS: G0108

== ENCOUNTER → 2025-06-27 10:22 | Outpatient (CLI) | payer OTHER, SELFPAY ==
[2024-03-12 15:18] VITALS: BMI 31.1
[2025-06-27 12:08] LABS: Alanine Aminotransferase 25 IU/L (<35); Albumin 3.9 g/dL (3.5-5.0); Albumin Globulin Ratio 1.0 (1.0-2.8); Alkaline Phosphatase 125 U/L (38-126); Blood Urea Nitrogen 23 mg/dL (7-17); Calcium 9.5 mg/dL (8.4-10.2); Carbon Dioxide 29 mmol/L (22-32); Chloride 98 mmol/L (98-107); Estimated Glomerular Filt Rate > 60 mL/min (>60); Globulin 3.8 g/dL (1.7-4.1); Glucose 245 mg/dL (70-99); HEMOLYSIS < 15 (0-50); Potassium 5.2 mmol/L (3.4-5.1); Sodium 136 mmol/L (137-145); Total Protein 7.7 g/dL (6.3-8.2)
== END ==
PROVIDERS: PCP Internal Medicine; Referring Provider Internal Medicine; Visit Provider Internal Medicine
DX: I10 Essential (primary) hypertension (principal); K52.9 Noninfective gastroenteritis and colitis, unspecified
CPT/HCPCS: 36415; 80053; 85651; 86140

== ENCOUNTER → 2025-07-21 08:49 | Outpatient (CLI) | payer OTHER, SELFPAY ==
[2024-03-12 15:18] VITALS: BMI 31.1
--- NOTE | 2025-07-21 08:51 | DI.CT.S_ITS ---
PROCEDURE: CT CHEST WO CON COMPARISON: [facility], CT, CT ABDOMEN PELVIS W CON, 04/21/2024, 13:08. [facility], CR, XR CHEST 2V, 04/11/2025, 8:51. INDICATIONS: dyspnea/abnl chest xray FINDINGS: Image quality: Diagnostic. Lungs and pleura: No acute air space opacities. No pleural effusions or pneumothorax. Central and peripheral airways are patent and normal in caliber. No septal thickening or nodularity there is a 0.7 x 0.5 cm noncalcified pulmonary nodule in the right lower lobe (156/series 3). Mediastinum: Heart size is normal. Multivessel atherosclerotic calcifications of the coronary arteries. Trace pericardial effusion. No mediastinal adenopathy by size criteria. Thoracic aorta and central pulmonary arteries are normal in size. Esophagus is normal in caliber. No hiatal hernia. Bones and chest wall: No suspicious bony lesions. No acute vertebral body compression fractures. No axillary or supraclavicular adenopathy by size criteria. Thyroid gland is unremarkable . No supraclavicular lymphadenopathy. Abdomen: Cholelithiasis without evidence for acute cholecystitis. Visualized upper abdominal solid organs and bowel loops appear unremarkable in the absence of contrast. IMPRESSION: CT chest without acute cardiopulmonary abnormalities. No focal consolidation. 0.7 x 0.5 cm noncalcified pulmonary nodule right lower lobe. Recommend follow- up chest CT in 6 months document stability. Marked coronary atherosclerotic calcifications. Correlate with risk factors and advise counseling. Dictated by: Bear Ibrahim M.D. on 07/22/2025 at 17:55 Approved by: Bear Ibrahim M.D. on 07/22/2025 at 18:14
== END ==
PROVIDERS: PCP Internal Medicine; Referring Provider Internal Medicine; Visit Provider Internal Medicine
DX: R91.1 Solitary pulmonary nodule (principal); I25.10 Atherosclerotic heart disease of native coronary artery without angina pectoris; K80.20 Calculus of gallbladder without cholecystitis without obstruction; R93.89 Abnormal findings on diagnostic imaging of other specified body structures; R06.00 Dyspnea, unspecified
CPT/HCPCS: 71250

== ENCOUNTER → 2025-07-22 08:00 | Outpatient (CLI) | payer OTHER, SELFPAY ==
[2024-03-12 15:18] VITALS: BMI 31.1
--- NOTE | 2025-08-07 13:24 | DIAB.FU ---
Follow-up Diabetes Education Assessment Name: Valery Martinez Date: 07/22/25 Time: 805-840a Dx: Type II Diabetes Valery presents for Dm visit. Continues on OP5/Dex system. At 130mg/dl target and rec for OP5 is 110mg/dl. Sees endo in September. current insulin 81.9u /day, which would recommend settings: IC ratio of 5 and ISF of 21. This would provide more insulin for correction and bolusing, reducing hyperglycemia. OP5 Settings: IC ratio: 7g ISF: 26--- 21 Duration of insulin: 4 hours Max bolus: 25 Max basal rate: 2.7u/hour Target and correct above: 130mg/dl--- 110mg/dl today Anthropometrics: Ht: 64 Wt: 200# 07/2025 175# 01/2025 wt hx: Reports UBW: 168-180#, years ago 240#. Self-Monitoring Blood Glucose: Improved TIR but with excessive time above goal continued. TIR: 39% very high 41% high 20% range avmg/dl GMI: 9% std dev: 60 mg/dl variance: 25.5% Last TIR: 81% very high 17% high 2% range avmg/dl GMI: 10.9% std dev: 66 mg/dl variance: 20.9% Diabetes Medications: Jardiance 10mg Insulin via pump Pertinent Labs: HgA1c: 13.7% 04/2024 10.7 02/2025 10.4% 06/2025 Past Medical History: (Last Updated 01/17/25 @ 11:29 by Jesus Alberto Jimenez MD) Anxiety Asthma Atypical chest pain Cataracts, bilateral Chicken pox Chronic back pain Chronic diarrhea Class 1 obesity (12/25/17) Depression Diabetic retinopathy Elevated LFTs neg partial w/u 2017 w/imagingEssential hypertension (12/20/17) Essential tremor GERD (gastroesophageal reflux disease) Headache History of tremor Hyperlipidemia Hypertension Hypoglycemic reaction to insulin in type 2 diabetes mellitus Infertility Insomnia Irregular menstrual cycle Lumbar strain Menorrhagia Migraine Palpitations PCOS (polycystic ovarian syndrome) Peripheral neuropathy due to metabolic disorder Piriformis syndrome of left side Rheumatoid arthritis Seasonal allergies Shoulder pain Sleep apnea Tremor (12/20/17) Uncontrolled type 2 diabetes mellitus (2008) Vertigo Intervention: This participant was very receptive. Provided appropriate educational handouts. Discussed the following topics: Settings and goals Action of ICR and ISF bolusing and correction behaviors Target goal for OP5 Pathophysiology of insulin resistance Goals: Reduce Target and correct above range by 10mg/dl next week- met bolus pre meal/snack- in progress use correction bolusing - in progress Follow-up: SEBASTIÁN MORENO follow-up in 1 week remotely and in 3-4 weeks in person. Anabelle Izaguirre RDN, [facility] [place][NOTE 2]ES Certified Diabetes Care and [employer] P: [phone] Thank you for this referral
== END ==
LOC: DIET 08:00
PROVIDERS: PCP Internal Medicine; Referring Provider Internal Medicine
DX: E11.9 Type 2 diabetes mellitus without complications (principal); Z79.84 Long term (current) use of oral hypoglycemic drugs; Z96.41 Presence of insulin pump (external) (internal); Z79.4 Long term (current) use of insulin; Z71.3 Dietary counseling and surveillance
CPT/HCPCS: G0108

== ENCOUNTER → 2025-08-05 07:49 | Outpatient (CLI) | payer OTHER, SELFPAY ==
[2024-03-12 15:18] VITALS: BMI 31.1
== END ==
LOC: RESP 07:49
PROVIDERS: PCP Internal Medicine; Referring Provider Internal Medicine; Visit Provider Internal Medicine
DX: R06.02 Shortness of breath (principal); R94.2 Abnormal results of pulmonary function studies
CPT/HCPCS: 94060; 94726; 94729

== ENCOUNTER → 2025-08-25 14:06 | Outpatient (CLI) | payer OTHER, SELFPAY ==
[2024-03-12 15:18] VITALS: BMI 31.1
--- NOTE | 2025-08-25 14:07 | DI.MG.S_ITS ---
MM screening mammo BI: 08/25/2025. BI-RADS: 1 CLINICAL: 55-year old female for bilateral screening mammogram. Tyrer-Cuzick lifetime risk of 15.7%. No personal or first-degree family history of breast cancer. Current reported family history of breast cancer: paternal grandmother. PRIOR EXAMS 05/12/2021. MAMMOGRAPHY TECHNIQUE: 2D and 3D (tomosynthesis) digital mammographic views obtained, with additional images as needed for full coverage. Current study was also evaluated with a Computer Aided Detection (CAD) system. DENSITY B. There are scattered areas of fibroglandular density. MAMMOGRAPHY FINDINGS Bilateral: No suspicious mass, asymmetry, microcalcification, or other abnormality seen. IMPRESSION: * No evidence of malignancy. RECOMMENDATIONS Bilateral * Annual screening mammography. OVERALL ASSESSMENT CATEGORY BI-RADS-1: Negative. The [employer] recommends annual screening mammography beginning at age 40 for women with average risk of breast cancer. ELECTRONICALLY SIGNED: Alie Graves M.D. on 08/27/2025 at 04:10:32 AM PT Interpreting Station ID: [id number]
== END ==
LOC: MAMMO 14:06
PROVIDERS: PCP Internal Medicine; Referring Provider Internal Medicine; Visit Provider Internal Medicine
DX: Z12.31 Encounter for screening mammogram for malignant neoplasm of breast (principal); Z80.3 Family history of malignant neoplasm of breast
CPT/HCPCS: 77063; 77067